=== PATIENT | female | born 1945 | race Caucasian/White ===

== ENCOUNTER → 2016-08-31 | Outpatient (CLI) | payer MEDICARE, OTHER ==
[~2016-08-31] MED LIST: ACYC400T PO; ASCO500C3 PO; BIOT10004 PO; CALC-134 PO; CEVI30CA2 PO; CHOL100040 PO; CYCL0.05 EACHEYE; ETAN50IN SUBCUT; ETOD200C27 PO; FER325T PO; FOLI1TAB6 PO; LEUC5TAB PO; LIS20T PO; MULTCAP45 PO; VITA100T3 PO
[2016-08-31 11:03] LABS: Hemoglobin 12.7 g/dL (12.2-16.2); Mean Corpuscular Hemoglobin 31.7 pg (28.0-32.0); Mean Corpuscular Hgb Conc. 34.4 g/dL (32.0-36.0); Mean Corpuscular Volume 92.3 fL (80.0-100.0); Mean Platelet Volume 6.9 fL (7.4-10.4); Platelet Count (auto) 304 10^3/uL (140-450); White Blood Cell 3.3 10^3/uL (4.4-10.8)
[2016-08-31 11:17] LABS: Albumin 3.3 g/dL (3.4-5.0); BUN/Creatinine Ratio 16.9; Bilirubin, Total 0.4 mg/dL (0.2-1.0); Calcium 8.7 mg/dL (8.5-10.1); Total Protein 8.3 g/dL (6.4-8.2)
[2016-08-31 11:27] LABS: Metamyelocytes % 0; Myelocytes % 0; Promyelocytes % 0; Reactive Lymphocytes 0
[2016-08-31 14:13] LABS: Platelet Estimate Adequate
== END | disposition home or self-care (01) ==
LOC: LAB 09:55
DX: M06.9 Rheumatoid arthritis, unspecified (principal); M25.50 Pain in unspecified joint; D64.9 Anemia, unspecified; I10 Essential (primary) hypertension
CPT/HCPCS: 36415; 80053; 85007; 85027; 85652; 86141

== ENCOUNTER → 2016-10-05 | Outpatient (CLI) | payer MEDICARE, OTHER ==
[2016-10-05 07:55] LABS: Cholesterol 167 mg/dL (< 200); HDL Cholesterol 54 mg/dL (40-59); LDL Cholesterol 118 mg/dL (< 100); Triglycerides 80 mg/dL (< 150)
== END | disposition home or self-care (01) ==
LOC: LAB 06:39
PROVIDERS: ATTEND Internal Medicine
DX: Z00.00 Encounter for general adult medical examination without abnormal findings (principal); I10 Essential (primary) hypertension
CPT/HCPCS: 36415; 80061; 82043; 82306; 84443

== ENCOUNTER → 2016-11-23 | Outpatient (CLI) | payer MEDICARE, OTHER | END | disposition home or self-care (01) | LOC: LAB 09:54 | PROVIDERS: ATTEND Internal Medicine | DX: Z01.812 Encounter for preprocedural laboratory examination (principal) | CPT/HCPCS: 36415; 82565; 84520 ==

== ENCOUNTER → 2016-12-15 | Outpatient (CLI) | payer MEDICARE, OTHER ==
[2016-12-15 11:00] LABS: Hematocrit 37.7 % (36.0-46.0)
== END | disposition home or self-care (01) ==
LOC: LAB 09:57
PROVIDERS: ATTEND Internal Medicine
DX: D64.9 Anemia, unspecified (principal)
CPT/HCPCS: 36415; 85014; 85018

== ENCOUNTER → 2017-03-08 | Outpatient (CLI) | payer MEDICARE, OTHER ==
[2017-03-08 09:11] LABS: Basophils # (auto) 0 uL; Basophils % (auto) 0.6 % (0.0-2.0); Eosinophils # (auto) 0.1 uL; Eosinophils % (auto) 2.4 % (0.0-7.0); Hematocrit 38.2 % (36.0-46.0); Hemoglobin 13.3 g/dL (12.2-16.2); Lymphocytes # (auto) 0.6 uL; Lymphocytes % (auto) 19.8 % (10.0-50.0); Mean Corpuscular Hemoglobin 33.9 pg (28.0-32.0); Mean Corpuscular Hgb Conc. 34.7 g/dL (32.0-36.0); Mean Corpuscular Volume 97.6 fL (80.0-100.0); Mean Platelet Volume 6.1 fL (6.9-10.8); Monocytes # (auto) 0.5 uL; Monocytes % (auto) 14.3 % (0.0-12.0); Neutrophils % (auto) 62.9 % (37.0-80.0); Platelet Count (auto) 228 10^3/uL (140-450); Red Cell Distribution Width 14.1 % (11.8-14.3); White Blood Cell 3.2 10^3/uL (4.4-10.8)
[2017-03-08 09:36] LABS: Albumin 3.6 g/dL (3.4-5.0); BUN/Creatinine Ratio 22.9; Bilirubin, Total 0.7 mg/dL (0.2-1.0); Calcium 8.7 mg/dL (8.5-10.1)
== END | disposition home or self-care (01) ==
LOC: LAB 08:54
DX: I10 Essential (primary) hypertension (principal); M06.9 Rheumatoid arthritis, unspecified; D64.9 Anemia, unspecified; M25.50 Pain in unspecified joint; Z79.899 Other long term (current) drug therapy
CPT/HCPCS: 36415; 80053; 85025; 85652; 86141

== ENCOUNTER → 2017-05-31 | Outpatient (CLI) | payer MEDICARE, OTHER ==
[2017-05-31 14:35] LABS: Basophils # (auto) 0 uL; Eosinophils # (auto) 0.2 uL; Eosinophils % (auto) 6.2 % (0.0-7.0); Hematocrit 38.8 % (36.0-46.0); Hemoglobin 13.1 g/dL (12.2-16.2); Lymphocytes # (auto) 0.9 uL; Lymphocytes % (auto) 31.4 % (10.0-50.0); Mean Corpuscular Hemoglobin 32.5 pg (28.0-32.0); Mean Corpuscular Hgb Conc. 33.8 g/dL (32.0-36.0); Mean Corpuscular Volume 96.3 fL (80.0-100.0); Mean Platelet Volume 6.3 fL (6.9-10.8); Monocytes # (auto) 0.4 uL; Monocytes % (auto) 14.3 % (0.0-12.0); Neutrophils # (auto) 1.4 uL; Neutrophils % (auto) 47.1 % (37.0-80.0); Nucleated Red Blood Cells % 0.1 %; Platelet Count (auto) 245 10^3/uL (140-450); Red Cell Distribution Width 12.6 % (11.8-14.3); White Blood Cell 2.9 10^3/uL (4.4-10.8)
[2017-05-31 15:01] LABS: Albumin 3.6 g/dL (3.4-5.0); BUN/Creatinine Ratio 23.8; Bilirubin, Total 0.4 mg/dL (0.2-1.0); Calcium 9.2 mg/dL (8.5-10.1); Potassium 3.8 mmol/L (3.5-5.1); Total Protein 8.3 g/dL (6.4-8.2)
== END | disposition home or self-care (01) ==
LOC: LAB 14:20
DX: I10 Essential (primary) hypertension (principal); M06.9 Rheumatoid arthritis, unspecified; D64.9 Anemia, unspecified
CPT/HCPCS: 36415; 80053; 85025; 85652; 86141

== ENCOUNTER → 2017-09-14 | Outpatient (CLI) | payer MEDICARE, OTHER ==
[2017-09-14 08:47] LABS: Hematocrit 37.1 % (36.0-46.0); Hemoglobin 12.5 g/dL (12.2-16.2); Mean Corpuscular Hemoglobin 31.6 pg (28.0-32.0); Mean Corpuscular Hgb Conc. 33.5 g/dL (32.0-36.0); Mean Corpuscular Volume 94.4 fL (80.0-100.0); Platelet Count (auto) 220 10^3/uL (140-450); Red Blood Cells 3.94 10^6/uL (4.0-5.20); Red Cell Distribution Width 12.9 % (11.8-14.3)
[2017-09-14 09:08] LABS: Band Neutrophils % (manual) 0; Basophils % (manual) 0 (0.0-2.0); Blast Cells 0; Metamyelocytes % 0; Myelocytes % 0; Promyelocytes % 0; Reactive Lymphocytes 0
[2017-09-14 09:16] LABS: Albumin 3.3 g/dL (3.4-5.0); BUN/Creatinine Ratio 17.7; Bilirubin, Total 0.6 mg/dL (0.2-1.0); CRP High Sensitivity 0.1 mg/dL (< 0.3); Calcium 8.9 mg/dL (8.5-10.1); Potassium 4.1 mmol/L (3.5-5.1); Total Protein 7.6 g/dL (6.4-8.2)
[2017-09-14 15:10] LABS: Eosinophils % (manual) 17 (0-7); Lymphocytes % (manual) 32 (10.0-50.0); Monocytes % (manual) 7 (0-12)
== END | disposition home or self-care (01) ==
LOC: LAB 08:25
PROVIDERS: ATTEND Internal Medicine Rheumatology
DX: M06.9 Rheumatoid arthritis, unspecified (principal); I12.9 Hypertensive chronic kidney disease with stage 1 through stage 4 chronic kidney disease, or unspecified chronic kidney disease; N18.2 Chronic kidney disease, stage 2 (mild); E78.00 Pure hypercholesterolemia, unspecified; Z79.899 Other long term (current) drug therapy
CPT/HCPCS: 36415; 80053; 85007; 85027; 85652; 86141

== ENCOUNTER → 2017-11-07 | Outpatient (CLI) | payer MEDICARE, OTHER ==
[2017-11-07 09:05] LABS: Hematocrit 37.9 % (36.0-46.0); Hemoglobin 12.8 g/dL (12.2-16.2); Mean Corpuscular Hemoglobin 31.6 pg (28.0-32.0); Mean Corpuscular Hgb Conc. 33.7 g/dL (32.0-36.0); Mean Corpuscular Volume 93.9 fL (80.0-100.0); Platelet Count (auto) 216 10^3/uL (140-450); Red Blood Cells 4.04 10^6/uL (4.0-5.20); Red Cell Distribution Width 13.1 % (11.8-14.3)
[2017-11-07 09:24] LABS: White Blood Cell 1.5 10^3/uL (4.4-10.8)
[2017-11-07 09:25] LABS: Basophils % (manual) 0 (0.0-2.0); Blast Cells 0; Metamyelocytes % 0; Myelocytes % 0; Promyelocytes % 0
[2017-11-07 09:43] LABS: Albumin 3.4 g/dL (3.4-5.0); BUN/Creatinine Ratio 17.3; Bilirubin, Total 0.5 mg/dL (0.2-1.0); CRP High Sensitivity 0.14 mg/dL (< 0.3); Calcium 9.2 mg/dL (8.5-10.1); Potassium 4.1 mmol/L (3.5-5.1); Total Protein 7.9 g/dL (6.4-8.2)
[2017-11-07 10:45] LABS: Band Neutrophils % (manual) 2; Eosinophils % (manual) 18 (0-7); Lymphocytes % (manual) 28 (10.0-50.0); Monocytes % (manual) 4 (0-12); Reactive Lymphocytes 3
== END | disposition home or self-care (01) ==
LOC: LAB 07:31
PROVIDERS: ATTEND Internal Medicine
DX: Z00.01 Encounter for general adult medical examination with abnormal findings (principal); Z12.11 Encounter for screening for malignant neoplasm of colon; M06.9 Rheumatoid arthritis, unspecified; I12.9 Hypertensive chronic kidney disease with stage 1 through stage 4 chronic kidney disease, or unspecified chronic kidney disease; N18.2 Chronic kidney disease, stage 2 (mild); E78.00 Pure hypercholesterolemia, unspecified; Z79.899 Other long term (current) drug therapy
CPT/HCPCS: 36415; 80053; 80061; 82270; 82306; 84443; 85007; 85027; 85652; 86141

== ENCOUNTER → 2019-01-04 | Outpatient (CLI) | payer MEDICARE, OTHER ==
[~2019-01-04] MED LIST changes: +ACYC-161 PO; -ACYC400T PO
[2019-01-04 07:40] LABS: Hematocrit 37.7 % (36.0-46.0); Hemoglobin 12.8 g/dL (12.2-16.2); Mean Corpuscular Hemoglobin 31.9 pg (28.0-32.0); Mean Corpuscular Hgb Conc. 33.9 g/dL (32.0-36.0); Platelet Count (auto) 232 10^3/uL (140-450); Red Blood Cells 4.01 10^6/uL (4.0-5.20); Red Cell Distribution Width 12.6 % (11.8-14.3)
[2019-01-04 07:48] LABS: Band Neutrophils % (manual) 0; Basophils % (manual) 0 (0.0-2.0); Blast Cells 0; Metamyelocytes % 0; Myelocytes % 0; Promyelocytes % 0; Reactive Lymphocytes 0
[2019-01-04 08:08] LABS: Eosinophils % (manual) 25 (0-7); Lymphocytes % (manual) 43 (10.0-50.0); Monocytes % (manual) 8 (0-12)
[2019-01-04 08:16] LABS: Albumin 3.4 g/dL (3.4-5.0); BUN/Creatinine Ratio 18.8; Calcium 9.3 mg/dL (8.5-10.1); Potassium 4.5 mmol/L (3.5-5.1)
[2019-01-04 08:21] LABS: Bilirubin, Total 0.7 mg/dL (0.2-1.0); Total Protein 8.1 g/dL (6.4-8.2)
[2019-01-04 09:09] LABS: White Blood Cell 1.7 10^3/uL (4.4-10.8)
== END | disposition home or self-care (01) ==
LOC: LAB 07:13
PROVIDERS: ATTEND Internal Medicine
DX: Z12.11 Encounter for screening for malignant neoplasm of colon (principal); I12.9 Hypertensive chronic kidney disease with stage 1 through stage 4 chronic kidney disease, or unspecified chronic kidney disease; N18.3 Chronic kidney disease, stage 3 (moderate)
CPT/HCPCS: 36415; 80053; 80061; 82306; 84443; 85007; 85027

== ENCOUNTER → 2019-01-08 | Outpatient (CLI) | payer MEDICARE, OTHER | END | disposition home or self-care (01) | LOC: LAB 11:02 | PROVIDERS: ATTEND Internal Medicine | DX: Z12.11 Encounter for screening for malignant neoplasm of colon (principal); I12.9 Hypertensive chronic kidney disease with stage 1 through stage 4 chronic kidney disease, or unspecified chronic kidney disease; N18.3 Chronic kidney disease, stage 3 (moderate) | CPT/HCPCS: 82274 ==

== ENCOUNTER → 2019-01-30 | Outpatient (CLI) | payer MEDICARE, OTHER | END | disposition home or self-care (01) | LOC: LAB 09:41 | PROVIDERS: ATTEND Internal Medicine | DX: D72.818 Other decreased white blood cell count (principal); M06.9 Rheumatoid arthritis, unspecified; D47.2 Monoclonal gammopathy | CPT/HCPCS: 36415; 85048 ==

== ENCOUNTER → 2019-01-31 | Outpatient (CLI) | payer MEDICARE, OTHER ==
[2019-01-31 09:17] LABS: Hematocrit 36.7 % (36.0-46.0); Hemoglobin 12.4 g/dL (12.2-16.2); Mean Corpuscular Hemoglobin 31.7 pg (28.0-32.0); Mean Corpuscular Hgb Conc. 33.7 g/dL (32.0-36.0); Mean Corpuscular Volume 93.8 fL (80.0-100.0); Platelet Count (auto) 266 10^3/uL (140-450); Red Blood Cells 3.91 10^6/uL (4.0-5.20); White Blood Cell 2.3 10^3/uL (4.4-10.8)
[2019-01-31 09:31] LABS: Basophils % (manual) 0 (0.0-2.0); Blast Cells 0; Metamyelocytes % 0; Myelocytes % 0; Promyelocytes % 0; Reactive Lymphocytes 0
[2019-01-31 09:40] LABS: % Iron Saturation 46.3 % (15-50); Albumin 3.4 g/dL (3.4-5.0); BUN/Creatinine Ratio 17.1; Calcium 8.9 mg/dL (8.5-10.1); Potassium 4.3 mmol/L (3.5-5.1)
[2019-01-31 09:42] LABS: Bilirubin, Total 0.6 mg/dL (0.2-1.0); Total Protein 7.4 g/dL (6.4-8.2)
[2019-01-31 09:44] LABS: Ferritin 240.6 ng/mL (10-322); Folate (Folic Acid) > 24.00 ng/mL (5.38-24)
[2019-01-31 12:16] LABS: Band Neutrophils % (manual) 3; Eosinophils % (manual) 13 (0-7); Lymphocytes % (manual) 35 (10.0-50.0); Monocytes % (manual) 5 (0-12)
[2019-02-01 08:09] LABS: Immunoglobulin G, Serum 2012 mg/dL (700-1600)
== END | disposition home or self-care (01) ==
LOC: LAB 08:31
PROVIDERS: ATTEND Internal Medicine
DX: D70.4 Cyclic neutropenia (principal); I10 Essential (primary) hypertension; R79.89 Other specified abnormal findings of blood chemistry
CPT/HCPCS: 36415; 80053; 82728; 82746; 82784; 83540; 83550; 83883; 84155; 84165; 85007; 85027

== ENCOUNTER → 2019-05-01 | Outpatient (CLI) | payer MEDICARE, OTHER ==
[2019-05-01 08:13] LABS: Basophils # (auto) 0 uL; Basophils % (auto) 0.3 % (0.0-2.0); Eosinophils # (auto) 1.1 uL; Hematocrit 35.5 % (36.0-46.0); Hemoglobin 12.4 g/dL (12.2-16.2); Lymphocytes # (auto) 0.6 uL; Lymphocytes % (auto) 21.3 % (10.0-50.0); Mean Corpuscular Hemoglobin 32.6 pg (28.0-32.0); Mean Corpuscular Volume 93.2 fL (80.0-100.0); Monocytes # (auto) 0.1 uL; Monocytes % (auto) 4.2 % (0.0-12.0); Neutrophils # (auto) 0.9 uL; Platelet Count (auto) 237 10^3/uL (140-450); Red Blood Cells 3.81 10^6/uL (4.0-5.20); Red Cell Distribution Width 13.3 % (11.8-14.3); White Blood Cell 2.6 10^3/uL (4.4-10.8)
[2019-05-01 08:15] LABS: Eosinophils % (auto) 41.2 % (0.0-7.0)
[2019-05-01 08:44] LABS: Albumin 3.3 g/dL (3.4-5.0); Calcium 8.7 mg/dL (8.5-10.1); Potassium 3.9 mmol/L (3.5-5.1)
[2019-05-01 08:48] LABS: BUN/Creatinine Ratio 15.6; Bilirubin, Total 0.4 mg/dL (0.2-1.0); Total Protein 7.5 g/dL (6.4-8.2)
== END | disposition home or self-care (01) ==
LOC: LAB 07:36
PROVIDERS: ATTEND Internal Medicine Hematology & Oncology
DX: D70.4 Cyclic neutropenia (principal)
CPT/HCPCS: 36415; 80053; 83615; 85025

== ENCOUNTER → 2019-06-12 | Outpatient (CLI) | payer MEDICARE, OTHER ==
[2019-06-12 15:10] LABS: Hemoglobin 11.7 g/dL (12.2-16.2); Mean Corpuscular Hemoglobin 32.3 pg (28.0-32.0); Mean Corpuscular Hgb Conc. 34.5 g/dL (32.0-36.0); Mean Corpuscular Volume 93.6 fL (80.0-100.0); Platelet Count (auto) 243 10^3/uL (140-450); Red Blood Cells 3.63 10^6/uL (4.0-5.20); White Blood Cell 2.7 10^3/uL (4.4-10.8)
[2019-06-12 15:18] LABS: Band Neutrophils % (manual) 0; Basophils % (manual) 0 (0.0-2.0); Blast Cells 0; Metamyelocytes % 0; Myelocytes % 0; Promyelocytes % 0; Reactive Lymphocytes 0
[2019-06-12 15:27] LABS: Albumin 3.3 g/dL (3.4-5.0); Calcium 8.9 mg/dL (8.5-10.1); Potassium 4.2 mmol/L (3.5-5.1)
[2019-06-12 15:29] LABS: BUN/Creatinine Ratio 24.7
[2019-06-12 15:31] LABS: Bilirubin, Total 0.3 mg/dL (0.2-1.0); Total Protein 7.6 g/dL (6.4-8.2)
[2019-06-12 15:41] LABS: Eosinophils % (manual) 52 (0-7); Lymphocytes % (manual) 30 (10.0-50.0); Monocytes % (manual) 8 (0-12)
[2019-07-03 10:59] LABS: Lymphocytes % (auto) 30.7 % (10.0-50.0); Monocytes % (auto) 7.9 % (0.0-12.0)
[2019-07-03 11:00] LABS: Basophils % (auto) 0.3 % (0.0-2.0)
[2019-07-03 11:03] LABS: Eosinophils % (auto) 45.5 % (0.0-7.0); Neutrophils % (auto) 15.6 % (37.0-80.0)
== END | disposition home or self-care (01) ==
LOC: LAB 14:53
PROVIDERS: ATTEND Internal Medicine Hematology & Oncology
DX: D70.4 Cyclic neutropenia (principal); Z87.891 Personal history of nicotine dependence; Z98.51 Tubal ligation status; Z90.49 Acquired absence of other specified parts of digestive tract
CPT/HCPCS: 36415; 38221; 80053; 81206; 81207; 85007; 85027; 88189; 88291; 88341

== ENCOUNTER → 2019-07-17 | Outpatient (CLI) | payer MEDICARE, OTHER ==
[2019-07-17 09:46] LABS: Hematocrit 33.9 % (36.0-46.0); Hemoglobin 11.7 g/dL (12.2-16.2); Mean Corpuscular Hemoglobin 32.2 pg (28.0-32.0); Mean Corpuscular Hgb Conc. 34.5 g/dL (32.0-36.0); Mean Corpuscular Volume 93.3 fL (80.0-100.0); Platelet Count (auto) 253 10^3/uL (140-450); Red Blood Cells 3.64 10^6/uL (4.0-5.20); Red Cell Distribution Width 13.3 % (11.8-14.3); White Blood Cell 2.7 10^3/uL (4.4-10.8)
[2019-07-17 10:03] LABS: Band Neutrophils % (manual) 0; Basophils % (manual) 0 (0.0-2.0); Blast Cells 0; Metamyelocytes % 0; Myelocytes % 0; Promyelocytes % 0; Reactive Lymphocytes 0
[2019-07-17 10:11] LABS: Potassium 4.5 mmol/L (3.5-5.1)
[2019-07-17 10:17] LABS: Albumin 3.2 g/dL (3.4-5.0); BUN/Creatinine Ratio 21.3; Bilirubin, Total 0.6 mg/dL (0.2-1.0); Calcium 8.9 mg/dL (8.5-10.1); Total Protein 7.6 g/dL (6.4-8.2)
[2019-07-17 10:46] LABS: Eosinophils % (manual) 26 (0-7); Lymphocytes % (manual) 24 (10.0-50.0); Monocytes % (manual) 9 (0-12)
== END | disposition home or self-care (01) ==
LOC: LAB 09:17
PROVIDERS: ATTEND Internal Medicine Hematology & Oncology
DX: D70.4 Cyclic neutropenia (principal)
CPT/HCPCS: 36415; 80053; 85007; 85027

== ENCOUNTER → 2021-01-29 | Outpatient (CLI) | payer MEDICARE ==
[~2021-01-29] MED LIST changes: -ETOD200C27 PO; +[UNRECOGNIZED DRUG - CODE] PO
== END | disposition home or self-care (01) ==
LOC: LAB 10:34
PROVIDERS: ATTEND Internal Medicine
DX: Z00.00 Encounter for general adult medical examination without abnormal findings (principal); Z12.11 Encounter for screening for malignant neoplasm of colon; E55.9 Vitamin D deficiency, unspecified; I10 Essential (primary) hypertension
CPT/HCPCS: 82274

== ENCOUNTER 2022-08-19 11:36 | Emergency (ER) | payer MEDICARE, OTHER ==
[~2022-08-19] VITALS: Ht 154.9 cm; Wt 69.6 kg
[2022-08-19] MEDS ORDERED: cefTRIAXone 1GM/50ML D5W 50 ML IV ONE (12:45)
[2022-08-19 13:02] VITALS: BP 164/66
[2022-08-20] MEDS ORDERED: CEPH-510 PO (10:34)
== END 2022-08-19 13:18 | disposition home or self-care (01) ==
LOC: ER 11:36
DX: S60.862A Insect bite (nonvenomous) of left wrist, initial encounter (principal); L03.124 Acute lymphangitis of left upper limb; I10 Essential (primary) hypertension; Z79.899 Other long term (current) drug therapy; W57.XXXA Bitten or stung by nonvenomous insect and other nonvenomous arthropods, initial encounter; Y93.89 Activity, other specified; Y92.89 Other specified places as the place of occurrence of the external cause; Y99.8 Other external cause status
CPT/HCPCS: 96374; 99283; J0696

== ENCOUNTER 2022-08-20 09:49 | Emergency (ER) | payer MEDICARE, OTHER ==
[~2022-08-20] VITALS: Ht 154.9 cm; Wt 68.2 kg
[2022-08-20 10:21] VITALS: BP 142/67
[2022-08-20] MEDS ORDERED: cefTRIAXone SOD 1,000 MG VL IM ONE (10:30)
[2022-08-20] MEDS ORDERED: CEPH-510 PO (10:34)
== END 2022-08-20 10:51 | disposition home or self-care (01) ==
LOC: ER 09:49
DX: S60.862D Insect bite (nonvenomous) of left wrist, subsequent encounter (principal); I10 Essential (primary) hypertension; Z90.49 Acquired absence of other specified parts of digestive tract; Z90.710 Acquired absence of both cervix and uterus; Z79.899 Other long term (current) drug therapy; W57.XXXD Bitten or stung by nonvenomous insect and other nonvenomous arthropods, subsequent encounter
CPT/HCPCS: 96372; 99283; J0696

== ENCOUNTER 2022-11-07 19:26 | Emergency (ER) | payer MEDICARE, OTHER ==
[~2022-11-07] VITALS: Ht 152.4 cm; Wt 68.0 kg
[~2022-11-07 19:26] MED LIST changes: -ACYC-161 PO; +ACYC400T16 PO; +CEPH-510 PO; +FOLI-119 PO; -FOLI1TAB6 PO
[2022-11-07] MEDS ORDERED: FLUORESCEIN SOD OPTH TEST STRIP LEFTEYE ONE (20:30)
[2022-11-07] MEDS ORDERED: TETRACAINE HCL 0.5% OPTH(EYE) SOLN 4ML LEFTEYE ONE (20:30)
[2022-11-07 21:18] VITALS: BP 160/75
== END 2022-11-07 21:13 | disposition home or self-care (01) ==
LOC: ER 19:28
DX: M35.01 Sjogren syndrome with keratoconjunctivitis (principal); I10 Essential (primary) hypertension; Z90.49 Acquired absence of other specified parts of digestive tract; Z90.710 Acquired absence of both cervix and uterus; Z88.6 Allergy status to analgesic agent

== ENCOUNTER → 2023-06-23 | Outpatient (CLI) | payer MEDICARE, OTHER ==
[2023-06-23 08:10] LABS: Hematocrit 28.9 % (36.0-46.0); Hemoglobin 9.3 g/dL (12.2-16.2); Mean Corpuscular Hemoglobin 26.7 pg (28.0-32.0); Mean Corpuscular Hgb Conc. 32.1 g/dL (32.0-36.0)
[2023-06-23 08:12] LABS: Mean Corpuscular Volume 83.3 fL (80.0-100.0); Red Blood Cells 3.47 10^6/uL (4.0-5.20); Red Cell Distribution Width 19.7 % (11.8-14.3)
[2023-06-23 08:44] LABS: White Blood Cell 1.2 10^3/uL (4.4-10.8)
[2023-06-23 08:45] LABS: Band Neutrophils % (manual) 0; Basophils % (manual) 0 (0.0-2.0); Blast Cells 0; Metamyelocytes % 0; Myelocytes % 0; Promyelocytes % 0; Reactive Lymphocytes 0
[2023-06-23 08:52] LABS: Alanine Aminotransferase 11 U/L (7-40); Albumin 3.9 g/dL (3.2-4.8); Alkaline Phosphatase 112 U/L (46-116); Anion Gap 6 (5-15); Aspartate Aminotransferase 23 U/L (13-40); BUN/Creatinine Ratio 17.7 (10.0-20.0); Blood Urea Nitrogen 17 mg/dL (9-23); Calcium 9.6 mg/dL (8.5-10.1); Carbon Dioxide 24 mmol/L (20-30); Chloride 103 mmol/L (98-107); Cholesterol 135 mg/dL (< 200); Glucose 92 mg/dL (74-106); HDL Cholesterol 38 mg/dL (40-59); LDL Cholesterol 85 mg/dL (< 100); Sodium 133 mmol/L (136-145); Triglycerides 107 mg/dL (< 150)
[2023-06-23 08:53] LABS: Bilirubin, Total 0.3 mg/dL (0.2-1.0); Total Protein 7.6 g/dL (5.7-8.2)
[2023-06-23 13:39] LABS: Eosinophils % (manual) 7 (0-7); Lymphocytes % (manual) 26 (10.0-50.0); Monocytes % (manual) 35 (0-12); Platelet Estimate Adequate
== END | disposition home or self-care (01) ==
LOC: LAB 07:56
PROVIDERS: ATTEND Nurse Practitioner Family
DX: I10 Essential (primary) hypertension (principal); E55.9 Vitamin D deficiency, unspecified; D72.819 Decreased white blood cell count, unspecified
CPT/HCPCS: 36415; 80053; 80061; 82306; 84439; 84443; 85007; 85027

== ENCOUNTER → 2023-07-27 | Outpatient (CLI) | payer MEDICARE, OTHER ==
[2023-07-27 09:44] LABS: Hemoglobin 9.5 g/dL (12.2-16.2); Mean Corpuscular Hgb Conc. 32.8 g/dL (32.0-36.0)
[2023-07-27 09:46] LABS: Mean Corpuscular Hemoglobin 27.8 pg (28.0-32.0); Mean Corpuscular Volume 84.9 fL (80.0-100.0); Red Blood Cells 3.42 10^6/uL (4.0-5.20); Red Cell Distribution Width 19.3 % (11.8-14.3)
[2023-07-27 10:24] LABS: % Iron Saturation 6.4 % (15-50)
[2023-07-27 11:14] LABS: White Blood Cell 1.1 10^3/uL (4.4-10.8)
[2023-07-27 11:17] LABS: Band Neutrophils % (manual) 0; Basophils % (manual) 0 (0.0-2.0); Blast Cells 0; Eosinophils % (manual) 0 (0-7); Metamyelocytes % 0; Myelocytes % 0; Promyelocytes % 0; Reactive Lymphocytes 0
[2023-07-27 14:12] LABS: Lymphocytes % (manual) 43 (10.0-50.0); Monocytes % (manual) 34 (0-12); Platelet Estimate Adequate
[2023-07-28 08:06] LABS: Immunoglobulin A 364 mg/dL (64-422); Immunoglobulin G, Serum 2570 mg/dL (586-1602); Immunoglobulin M 82 mg/dL (26-217)
== END | disposition home or self-care (01) ==
LOC: LAB 09:13
DX: E87.1 Hypo-osmolality and hyponatremia (principal); D72.819 Decreased white blood cell count, unspecified
CPT/HCPCS: 36415; 82728; 82784; 83540; 83550; 85007; 85025; 85027

== ENCOUNTER → 2023-08-15 | Outpatient (CLI) | payer MEDICARE, OTHER ==
[2023-08-15 11:29] LABS: Hematocrit 28.9 % (36.0-46.0); Hemoglobin 9.3 g/dL (12.2-16.2); Mean Corpuscular Hemoglobin 27.9 pg (28.0-32.0); Mean Corpuscular Hgb Conc. 32.3 g/dL (32.0-36.0); Mean Corpuscular Volume 86.4 fL (80.0-100.0); Red Blood Cells 3.34 10^6/uL (4.0-5.20); Red Cell Distribution Width 18.5 % (11.8-14.3)
[2023-08-15 11:48] LABS: % Iron Saturation 7.8 % (15-50); Alanine Aminotransferase 12 U/L (7-40); Alkaline Phosphatase 111 U/L (46-116); Anion Gap 4 (5-15); Calcium 9.9 mg/dL (8.5-10.1); Carbon Dioxide 23 mmol/L (20-30); Chloride 107 mmol/L (98-107); Glucose 96 mg/dL (74-106); Potassium 4.6 mmol/L (3.5-5.1); Sodium 134 mmol/L (136-145)
[2023-08-15 11:49] LABS: BUN/Creatinine Ratio 25.3 (10.0-20.0); Blood Urea Nitrogen 24 mg/dL (9-23)
[2023-08-15 11:50] LABS: Albumin 3.8 g/dL (3.2-4.8); Aspartate Aminotransferase 23 U/L (13-40)
[2023-08-15 11:51] LABS: Bilirubin, Total 0.2 mg/dL (0.2-1.0); Ferritin 48.2 ng/mL (10-291); Total Protein 7.3 g/dL (5.7-8.2)
[2023-08-15 12:18] LABS: White Blood Cell 1.3 10^3/uL (4.4-10.8)
[2023-08-15 12:20] LABS: Band Neutrophils % (manual) 0; Basophils % (manual) 0 (0.0-2.0); Blast Cells 0; Metamyelocytes % 0; Myelocytes % 0; Promyelocytes % 0; Reactive Lymphocytes 0
[2023-08-15 13:22] LABS: Eosinophils % (manual) 4 (0-7); Lymphocytes % (manual) 56 (10.0-50.0); Monocytes % (manual) 19 (0-12); Platelet Estimate Adequate
== END | disposition home or self-care (01) ==
LOC: LAB 10:57
DX: D72.819 Decreased white blood cell count, unspecified (principal); E87.1 Hypo-osmolality and hyponatremia; Z88.8 Allergy status to other drugs, medicaments and biological substances
CPT/HCPCS: 36415; 80053; 82607; 82728; 83540; 83550; 85007; 85027

== ENCOUNTER → 2023-09-20 | Outpatient (CLI) | payer MEDICARE, OTHER ==
[~2023-09-20] MED LIST changes: +LIDOCAINE 2%HCL (LOCAL ANESTH.) INJ 10ml MDV ONE; +MIDAZOLAM HCL 2MG/2ML 2ml VIAL (1mg/ml) IV ONE; +MIDAZOLAM HCL 2MG/2ML 2ml VIAL (1mg/ml) ONE; +fentaNYL CITRATE 100 MCG/2 ML VL IV ONE; +fentaNYL CITRATE 100 MCG/2 ML VL ONE
== END | disposition home or self-care (01) ==
LOC: XYW 08:21
DX: D72.819 Decreased white blood cell count, unspecified (principal); Z79.899 Other long term (current) drug therapy; Z87.01 Personal history of pneumonia (recurrent); Z98.51 Tubal ligation status; Z90.710 Acquired absence of both cervix and uterus; Z98.890 Other specified postprocedural states; Z82.49 Family history of ischemic heart disease and other diseases of the circulatory system; Z82.5 Family history of asthma and other chronic lower respiratory diseases; Z84.89 Family history of other specified conditions
CPT/HCPCS: 38222; 77012; J2001; J2250; J3010; 10005; 72192

== ENCOUNTER → 2023-12-16 | Outpatient (CLI) | payer MEDICARE, OTHER ==
[~2023-12-16] MED LIST changes: -LIDOCAINE 2%HCL (LOCAL ANESTH.) INJ 10ml MDV ONE; -MIDAZOLAM HCL 2MG/2ML 2ml VIAL (1mg/ml) IV ONE; -MIDAZOLAM HCL 2MG/2ML 2ml VIAL (1mg/ml) ONE; -fentaNYL CITRATE 100 MCG/2 ML VL IV ONE; -fentaNYL CITRATE 100 MCG/2 ML VL ONE
[2023-12-16 09:23] LABS: Hemoglobin 8.5 g/dL (12.2-16.2)
[2023-12-16 09:25] LABS: Hematocrit 25.5 % (36.0-46.0); Mean Corpuscular Hemoglobin 29.7 pg (28.0-32.0); Mean Corpuscular Hgb Conc. 33.4 g/dL (32.0-36.0); Mean Corpuscular Volume 88.8 fL (80.0-100.0); Red Blood Cells 2.87 10^6/uL (4.0-5.20); Red Cell Distribution Width 17.1 % (11.8-14.3)
[2023-12-16 09:30] LABS: White Blood Cell 1.2 10^3/uL (4.4-10.8)
[2023-12-16 09:32] LABS: Blast Cells 0; Metamyelocytes % 0; Myelocytes % 0; Promyelocytes % 0; Reactive Lymphocytes 0
[2023-12-16 10:07] LABS: Albumin 3.2 g/dL (3.2-4.8); Alkaline Phosphatase 104 U/L (46-116); Anion Gap 6 (5-15); Aspartate Aminotransferase 14 U/L (13-40); BUN/Creatinine Ratio 19.8 (10.0-20.0); Blood Urea Nitrogen 19 mg/dL (9-23); Calcium 8.7 mg/dL (8.5-10.1); Carbon Dioxide 21 mmol/L (20-30); Chloride 106 mmol/L (98-107); Glucose 99 mg/dL (74-106); Potassium 4.1 mmol/L (3.5-5.1); Sodium 133 mmol/L (136-145)
[2023-12-16 10:08] LABS: Alanine Aminotransferase < 9 U/L (7-40); Bilirubin, Total 0.2 mg/dL (0.2-1.0); Total Protein 6.2 g/dL (5.7-8.2)
[2023-12-16 10:18] LABS: Band Neutrophils % (manual) 4; Lymphocytes % (manual) 45 (10.0-50.0)
[2023-12-16 10:19] LABS: Basophils % (manual) 1 (0.0-2.0); Eosinophils % (manual) 5 (0-7); Monocytes % (manual) 26 (0-12)
[2023-12-16 10:20] LABS: Anisocytosis Slight; Platelet Estimate Adequate
[2023-12-16 10:42] LABS: % Iron Saturation 11.2 % (15-50)
== END | disposition home or self-care (01) ==
LOC: LAB 08:58
PROVIDERS: ATTEND Student in an Organized Health Care Education/Training Program
DX: D50.0 Iron deficiency anemia secondary to blood loss (chronic) (principal); E87.1 Hypo-osmolality and hyponatremia; D64.9 Anemia, unspecified; D72.819 Decreased white blood cell count, unspecified; Z91.013 Allergy to seafood
CPT/HCPCS: 36415; 80053; 82728; 83540; 83550; 83615; 85007; 85027

== ENCOUNTER → 2024-01-02 | Outpatient (CLI) | payer MEDICARE, OTHER ==
[2024-01-02 07:56] LABS: Hemoglobin 9.3 g/dL (12.2-16.2)
[2024-01-02 07:59] LABS: Hematocrit 28.1 % (36.0-46.0); Mean Corpuscular Hemoglobin 29.5 pg (28.0-32.0); Mean Corpuscular Hgb Conc. 33.1 g/dL (32.0-36.0); Mean Corpuscular Volume 89.1 fL (80.0-100.0); Red Blood Cells 3.16 10^6/uL (4.0-5.20); Red Cell Distribution Width 16.8 % (11.8-14.3)
[2024-01-02 08:22] LABS: Albumin 3.5 g/dL (3.2-4.8); Alkaline Phosphatase 97 U/L (46-116); Anion Gap 5 (5-15); Aspartate Aminotransferase 18 U/L (13-40); Bilirubin, Total 0.3 mg/dL (0.2-1.0); Blood Urea Nitrogen 15 mg/dL (9-23); Calcium 9.4 mg/dL (8.7-10.4); Carbon Dioxide 24 mmol/L (20-30); Chloride 106 mmol/L (98-107); Cholesterol 131 mg/dL (< 200); Glucose 93 mg/dL (74-106); HDL Cholesterol 41 mg/dL (40-59); LDL Cholesterol 80 mg/dL (< 100); Potassium 4.6 mmol/L (3.5-5.1); Sodium 135 mmol/L (136-145); Total Protein 6.9 g/dL (5.7-8.2); Triglycerides 113 mg/dL (< 150); White Blood Cell 1.1 10^3/uL (4.4-10.8)
[2024-01-02 08:23] LABS: Blast Cells 0; Metamyelocytes % 0; Myelocytes % 0; Promyelocytes % 0; Reactive Lymphocytes 0
[2024-01-02 08:36] LABS: Alanine Aminotransferase < 9 U/L (7-40)
[2024-01-02 08:52] LABS: Anisocytosis Slight; Band Neutrophils % (manual) 1; Basophils % (manual) 1 (0.0-2.0); Eosinophils % (manual) 4 (0-7); Lymphocytes % (manual) 38 (10.0-50.0); Monocytes % (manual) 32 (0-12)
[2024-01-02 08:53] LABS: Platelet Estimate Adequate; Tear Drop Cells FEW
== END | disposition home or self-care (01) ==
LOC: LAB 07:35
PROVIDERS: ATTEND Nurse Practitioner Family
DX: E78.5 Hyperlipidemia, unspecified (principal); Z00.00 Encounter for general adult medical examination without abnormal findings
CPT/HCPCS: 36415; 80053; 80061; 84439; 84443; 85007; 85027

== ENCOUNTER → 2024-05-11 | Outpatient (CLI) | payer MEDICARE, OTHER ==
[~2024-05-11] MED LIST changes: +ETOD200C2 PO; -[UNRECOGNIZED DRUG - CODE] PO
[2024-05-11 08:52] LABS: Hematocrit 31.4 % (36.0-46.0); Hemoglobin 10.6 g/dL (12.2-16.2); Mean Corpuscular Hemoglobin 29.3 pg (28.0-32.0); Mean Corpuscular Hgb Conc. 33.7 g/dL (32.0-36.0); Platelet Count (auto) 255 10^3/uL (140-450); Red Blood Cells 3.61 10^6/uL (4.0-5.20); Red Cell Distribution Width 15.9 % (11.8-14.3)
[2024-05-11 10:04] LABS: Alanine Aminotransferase 11 U/L (7-40); Albumin 3.6 g/dL (3.2-4.8); Anion Gap 6 (5-15); Aspartate Aminotransferase 17 U/L (13-40); BUN/Creatinine Ratio 24.5 (10.0-20.0); Blood Urea Nitrogen 23 mg/dL (9-23); Calcium 9.7 mg/dL (8.7-10.4); Carbon Dioxide 25 mmol/L (20-31); Chloride 105 mmol/L (98-107); Glucose 95 mg/dL (74-106); Potassium 4.7 mmol/L (3.5-5.1); Total Protein 7.3 g/dL (5.7-8.2)
[2024-05-11 10:21] LABS: Alkaline Phosphatase 130 U/L (46-116); Bilirubin, Total 0.3 mg/dL (0.2-1.0); Sodium 136 mmol/L (136-145)
[2024-05-11 11:07] LABS: White Blood Cell 1.2 10^3/uL (4.4-10.8)
[2024-05-11 11:08] LABS: Basophils % (manual) 0 (0.0-2.0); Blast Cells 0; Metamyelocytes % 0; Myelocytes % 0; Promyelocytes % 0; Reactive Lymphocytes 0
[2024-05-11 11:25] LABS: Band Neutrophils % (manual) 5; Eosinophils % (manual) 3 (0-7); Large Platelets FEW; Lymphocytes % (manual) 38 (10.0-50.0); Monocytes % (manual) 26 (0-12); Platelet Estimate Adequate
== END | disposition home or self-care (01) ==
LOC: LAB 08:32
PROVIDERS: ATTEND Student in an Organized Health Care Education/Training Program
DX: D72.819 Decreased white blood cell count, unspecified (principal); E87.1 Hypo-osmolality and hyponatremia; D50.0 Iron deficiency anemia secondary to blood loss (chronic)
CPT/HCPCS: 36415; 80053; 83615; 85007; 85027

== ENCOUNTER 2024-06-19 12:36 | Inpatient (IN) | payer MEDICARE, OTHER ==
[~2024-06-19] VITALS: Ht 167.6 cm; Wt 69.8 kg
--- NOTE | 2024-06-19 13:07 | ED.PDOC ---
GI ASSESSMENT HPI Comments 79 year old female COLIN presents to the ED with chief complaint of abdominal distention. Patient reports that she has been experiencing abdominal distention with associated 5/10 abdominal discomfort since yesterday with constipation for the past 2 days. Patient relays that she has not been passing gas. Patient denies any N/V/D, dizziness, fever, chills, dysuria, or rectal bleeding. Chief Complaint: Abdominal Pain Time Seen by MD: 13:02 Primary Care Provider: CLAUDE Reviewed Notes: Nurses Notes, Belly Packer Notes, Medications, Allergies Allergies: Coded Allergies: NO KNOWN ALLERGIES (Unverified , 03/31/10) Home Meds Active Scripts Cephalexin ( Keflex 500) 500 Mg Cap, 1 CAP PO TID, #30 CAP Prov:SREE ROBLES 08/20/22 Acyclovir (ZOVIRAX TABLET) 400 Mg Tb, 400 MG PO 5XD, #50 Prov:MARCIA LEIVA MD 10/03/15 Reported Medications Ascorbic Acid (Vitamin C) 500 Mg Chw, 500 MG PO HS, CHW 10/01/15 Alpha Tocopheryl Acid Succinat (VITAMIN E) 100 Unit Tab, 100 UNIT PO HS, TAB 10/01/15 Calcium Citrate Tetrahydrate (Calcium Citrate) Citrate Pow, 1 TAB PO HS, POW 10/01/15 Biotin (Vitamin H) (Biotin) 1,000 Mcg Tab, 1000 MCG PO DAILY, TAB 10/01/15 Multiple Vitamin (Multivitamins) Cap, 1 CAP PO DAILY, #30 CAP 3 Refills 10/01/15 Ferrous Sulfate (Ferrous Sulfate) 325 Mg Tab, 325 MG PO DAILY, TAB 10/01/15 Cholecalciferol (VITAMIN D-3) 1,000 Unit Tab, 1000 UNIT PO BID, TAB 10/01/15 Cyclosporine (Ophth) (Restasis) 0.05 % Emu, 1 DROP EACHEYE BID, #60 VIAL 3 Refills 10/01/15 Leucovorin Calcium (Leucovorin Calcium) 5 Mg Tab, 5 MG PO QWEEKLY, TAB 10/01/15 Etanercept (ENBREL) 50 Mg/Ml Inj, 50 MG SUBCUT QWEEKLY, #12 SYR 10/01/15 Lisinopril (ZESTRIL TABLET) 20 Mg Tb, 20 MG PO BID 10/01/15 Folic Acid (Folic Acid) 1 Mg Tab, 1000 MCG PO HS 03/31/10 Cevimeline Hydrochloride Hemih (Evoxac) 30 Mg Cap, 30 MG PO BID 03/31/10 Etodolac (Etodolac) 200 Mg Cap, 200 MG PO BID 03/31/10 Information Source: Patient, Emergency Med Personnel Mode of Arrival: EMS Timing: Days Duration: Since onset Prehospital treatment: None Quality: Aching Vomitus: None Stool: Impaction Severity: Moderate Recent: None Recent Hx of: None Pain Location: Diffuse Modifying Factors: Nothing Associated sign and symptoms: Constipation, Abdominal Pain Past Medical History PAST MEDICAL HISTORY: Arthritis, HTN Surgical History: Cholecystectomy, Hysterectomy 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 History Family History Family History: Reviewed,noncontributory to illness, Unknown Social History Smoker: Non-Smoker Alcohol: Denies ETOH Use Drugs: Denies Drug Use Lives In: Home Constitutional: denies: chills, diaphoresis, fatigue, fever, malaise, sweats, weakness, others EENTM: denies: blurred vision, double vision, ear bleeding, ear discharge, ear drainage, ear pain, ear ringing, eye pain, eye redness, hearing loss, mouth pain, mouth swelling, nasal discharge, nose bleeding, nose congestion, nose pain, photophobia, tearing, throat pain, throat swelling, voice changes, others Respiratory: denies: cough, hemoptysis, orthopnea, SOB at rest, shortness of breath, SOB with excertion, stridor, wheezing, others Cardiovascular: denies: chest pain, dizzy spells, diaphoresis, Dyspnea on exertion, edema, irregular heart beat, left arm pain, lightheadedness, palpitations, PND, syncope, others Gastrointestinal: reports: abdomen distended, abdominal pain, constipated; denies: blood streaked bowels, diarrhea, dysphagia, difficulty swallowing, hematemesis, melena, nausea, poor appetite, poor fluid intake, rectal bleeding, rectal pain, vomiting, others Genitourinary: denies: abnormal vagina bleeding, burning, dyspareunia, dysuria, flank pain, frequency, hematuria, incontinence, pain, , vagina discharge, urgency, others Neurological: denies: dizziness, fainting, headache, left sided numbness, left sided weakness, numbness, paresthesia, pre-existing deficit, right sided numbness, right sided weakness, seizure, speech problems, tingling, tremors, weakness, others Musculoskeletal: denies: back pain, gout, joint pain, joint swelling, muscle pain, muscle stiffness, neck pain, others Integumetry: denies: bruises, change in color, change in hair/nails, dryness, laceration, lesions, lumps, rash, wounds, others Allergic/Immunocompromised: denies: Difficulty Healing, Frequent Infections, Hives, Itching, others Hematologic/Lymphatic: denies: anemia, blood clots, easy bleeding, easy bruising, swollen glands, others Endocrine: denies: excessive hunger, excessive sweating, excessive thirst, excessive urination, flushing, intolerance to cold, intolerance to heat, unexplained weight gain, unexplained weight loss, others Psychiatric: denies: anxiety, bipolar disorder, depression, hopeless, panic disorder, schizophrenia, sleepless, suicidal, others All Other Systems: Reviewed and Negative Physical Exam General Appearance: Moderate Distress, Normal HEENT: Normal ENT Inspection, PERRL/EOMI Neck: Full Range of Motion, Non-Tender, Normal, Normal Inspection Respiratory: Chest Non-Tender, Lungs Clear, No Accessory Muscle Use, No Respiratory Distress, Normal Breath Sounds Cardiovascular: No Edema, No JVD, No Murmur, No Gallop, Normal Peripheral Pulses, Regular Rate/Rhythm Breast Exam: Deferred Gastrointestinal: No Organomegaly, Non Tender, No Pulsatile Mass, Normal Bowel Sounds, Soft Genitalia: Deferred Pelvic: Deferred Rectal: Deferred Extremities: No calf tenderness, Normal capillary refill, Normal inspection, Normal range of motion, Non-tender, No pedal edema Musculoskeletal : Apperance: Normal Neurologic: Alert, core loader II-XII nml as Tested, No Motor Deficits, Normal Affect, Normal Mood, No Sensory Deficits Cerebellar Function: NOT DONE Reflexes: NOT DONE Skin: Dry, Normal Color, Warm Peripheral Pulses: 3+ Radial (R), 3+ Radial (L) Lymphatic: No Adenopathy Was a procedure done? Was a procedure done?: No GI differential Dx Differential Diagnosis: Constipation, Diverticular disease, Esophagitis, Gastritis/PUD, Gastroenteritis X-Ray, Labs, Meds, VS Vital Signs Date Time Temp Pulse Resp B/P (MAP) Pulse Ox O2 Delivery O2 Flow Rate FiO2 06/19/24 12:42 99.7 101 20 156/71 (99) 96 Lab Test 06/19/24 14:12 06/19/24 13:47 Range/Units Urine Color Pending Urine Clarity Pending Urine pH Pending Urine Specific [place] Pending Urine Protein Pending Urine Ketones Pending Urine Blood Pending Urine Nitrite Pending Urine Bilirubin Pending Urine Urobilinogen Pending Urine Leukocyte Esterase Pending Urine RBC Pending Urine WBC Pending Urine Squamous Epithelial Cells Pending Urine Bacteria Pending Urine Glucose Pending White Blood Count 2.5 L 4.4-10.8 10^3/uL Red Blood Count 3.12 L 4.0-5.20 10^6/uL Hemoglobin 9.0 L 12.2-16.2 g/dL Hematocrit 26.8 L 36.0-46.0 % Mean Corpuscular Volume 86.1 80.0-100.0 fL Mean Corpuscular Hemoglobin 29.0 28.0-32.0 pg Mean Corpuscular Hemoglobin Concent 33.6 32.0-36.0 g/dL Red Cell Distribution Width 17.1 H 11.8-14.3 % Platelet Count 303 140-450 10^3/uL Mean Platelet Volume 6.4 L 6.9-10.8 fL Neutrophils (%) (Auto) 81.8 H 37.0-80.0 % Lymphocytes (%) (Auto) 5.7 L 10.0-50.0 % Monocytes (%) (Auto) 11.7 0.0-12.0 % Eosinophils (%) (Auto) 0.5 0.0-7.0 % Basophils (%) (Auto) 0.3 0.0-2.0 % Neutrophils # (Auto) 2.1 1.6-8.6 10 ^3/uL Lymphocytes # (Auto) 0.1 L 0.4-5.4 10 ^3/uL Monocytes # (Auto) 0.3 0-1.3 10 ^3/uL Eosinophils # (Auto) 0 0-0.8 10 ^3/uL Basophils # (Auto) 0 0-0.2 10 ^3/uL Nucleated Red Blood Cells 0.1 % Sodium Level 129 L 136-145 mmol/L Potassium Level 4.7 3.5-5.1 mmol/L Chloride Level 100 98-107 mmol/L Carbon Dioxide Level 21 20-31 mmol/L Anion Gap 8 5-15 Blood Urea Nitrogen 22 9-23 mg/dL Creatinine 0.93 0.550-1.02 mg/dL Glomerular Filtration Rate Calc 63 >90 mL/min BUN/Creatinine Ratio 23.7 H 10.0-20.0 Serum Glucose 121 H 74-106 mg/dL Calcium Level 9.0 8.7-10.4 mg/dL Troponin I High Sensitivity 5 </=34 ng/L CT Abd/Pel: Findings: Evaluation of solid organs is limited due to lack of intravenous contrast use. Lung Bases: No acute or significant lung base finding. Normal heart size. No pleural or pericardial effusion. Liver: The liver is normal in size. No focal lesions. Gallbladder and biliary Tree: Gallbladder is surgically absent. Spleen: Unremarkable Pancreas: The pancreas is grossly normal in appearance. Adrenal Glands: Unremarkable Kidneys: Left renal cysts. No hydronephrosis or nephrolithiasis. Bladder: Grossly unremarkable for degree of distention. Bowel: The stomach is grossly normal in appearance. Small bowel and colon are normal in caliber and distribution. The appendix is not visualized; however, no secondary findings of acute appendicitis identified. Ascites: Absent Lymphadenopathy: No mesenteric, retroperitoneal or periportal lymphadenopathy. Abdominal wall and Mesentery: Unremarkable. Vasculature: Calcified atherosclerotic disease. Pelvic Organs: Uterus is surgically absent. Multiloculated cystic mass in the right adnexa measuring up to 64 mm with some calcification. Musculoskeletal: Rotoscoliosis with associated multilevel degenerative disease. Degenerative changes in the hips. IMPRESSION: 1. Multiloculated cystic mass in the right adnexa measuring up to 64 mm concerning for ovarian neoplasm. Recommend further evaluation with pelvic ultrasound and/or MRI of the pelvis with contrast. Patient alert. Complaining of abdominal distention. Vitals stable. Answering all questions. CT scan of the abdomen reviewed does show concerning for ovarian mass. Cardiac marker within normal limits. No sign of any obstruction. Reviewed her previous visit. Explained to the patient. Continue cardiac monitoring. CA 125. Time of 1ST Reevaluation: 14:02 Reevaluation 1ST: Unchanged Patient Education/Counseling: Diagnosis, Treatment Family Education/Counseling: No Family Present Additional Information I reviewed the following notes from patient's past medical encounters: 11/07/22 for Sjogren's syndrome The following tests were ordered, and results were reviewed by me: BMP, UA, CBC, Troponin, EKG, CT Abd/Pel Additional Information was gathered from interviewing the following independent historians: EMS I reviewed and agreed with the following test results read by other providers: CT Abd/Pel I discussed treatment and results with medical personnel. Departure 1 Departure Time of Disposition: 15:33 Impression: Primary Impression: Acute abdominal pain Additional Impression: Ovarian mass Disposition: ADMITTED INPATIENT Admit to: Med Surg Condition: Guarded Critical Care Note Critical Care Time?: No Stability Stability form required: No Heart Score Heart Score: Heart Score Response (Comments) Value History N/A 0 EKG N/A 0 Age N/A 0 Risk Factors N/A 0 Troponin N/A 0 Total 0 I personally scribed for ONUR MORALES MD ([email or web address]) on 06/19/24 at 13:07. Electronically submitted by Tyson Dee ([email or web address]). I personally scribed for ONUR MORALES MD ([email or web address]) on 06/19/24 at 14:40. Electronically submitted by Tyson Dee ([email or web address]). ONUR MORALES MD Jun 19, 2024 13:07
--- NOTE | 2024-06-19 13:43 | DVH ---
Exam: CT CT AB PEL WO CON-NO ORAL OR IV History: distended Comparison Study: None Technique: Multidetector spiral CT of the abdomen and pelvis was performed from lung bases to pubic symphysis. Imaging was performed without IV contrast. Axial, coronal and sagittal multiplanar reform ats were obtained from the axial data set by the technologist. Radiation dose : Abdomen/Pelvis: CTDIvol 9 mGy, DLP 493 mGy*cm. Findings: Evaluation of solid organs is limited due to lack of intravenous contrast use. Lung Bases: No acute or significant lung base finding. Normal heart size. No pleural or pericardial effusion. Liver: The liver is normal in size. No focal lesions. Gallbladder and biliary Tree: Gallbladder is surgically absent. Spleen: Unremarkable Pancreas: The pancreas is grossly normal in appearance. Adrenal Glands: Unremarkable Kidneys: Left renal cysts. No hydronephrosis or nephrolithiasis. Bladder: Grossly unremarkable for degree of distention. Bowel: The stomach is grossly normal in appearance. Small bowel and colon are normal in caliber and d istribution. The appendix is not visualized; however, no secondary findings of acute appendicitis id entified. Ascites: Absent Lymphadenopathy: No mesenteric, retroperitoneal or periportal lymphadenopathy. Abdominal wall and Mesentery: Unremarkable. Vasculature: Calcified atherosclerotic disease. Pelvic Organs: Uterus is surgically absent. Multiloculated cystic mass in the right adnexa measuring up to 64 mm with some calcification. Musculoskeletal: Rotoscoliosis with associated multilevel degenerative disease. Degenerative changes in the hips. IMPRESSION: 1. Multiloculated cystic mass in the right adnexa measuring up to 64 mm concerning for ovarian neopla sm. Recommend further evaluation with pelvic ultrasound and/or MRI of the pelvis with contrast. Radiation optimization: All CT scans at this facility use at least one of these dose optimization rosalind hniques: Automated exposure control mA and/or kV adjustment per patient size (includes targeted exams where dose is matched to clinical indication) or iterative reconstruction. HS:Y
[2024-06-19 14:12] LABS: Basophils # (auto) 0 10 ^3/uL (0-0.2); Basophils % (auto) 0.3 % (0.0-2.0); Eosinophils # (auto) 0 10 ^3/uL (0-0.8); Eosinophils % (auto) 0.5 % (0.0-7.0); Hematocrit 26.8 % (36.0-46.0); Lymphocytes # (auto) 0.1 10 ^3/uL (0.4-5.4); Lymphocytes % (auto) 5.7 % (10.0-50.0); Mean Corpuscular Hgb Conc. 33.6 g/dL (32.0-36.0); Mean Corpuscular Volume 86.1 fL (80.0-100.0); Monocytes # (auto) 0.3 10 ^3/uL (0-1.3); Monocytes % (auto) 11.7 % (0.0-12.0); Neutrophils # (auto) 2.1 10 ^3/uL (1.6-8.6); Neutrophils % (auto) 81.8 % (37.0-80.0); Nucleated Red Blood Cells % 0.1 %; Platelet Count (auto) 303 10^3/uL (140-450); Red Blood Cells 3.12 10^6/uL (4.0-5.20); Red Cell Distribution Width 17.1 % (11.8-14.3); White Blood Cell 2.5 10^3/uL (4.4-10.8)
[2024-06-19 14:19] LABS: Chloride 100 mmol/L (98-107); Potassium 4.7 mmol/L (3.5-5.1)
[2024-06-19 14:20] LABS: Anion Gap 8 (5-15); Carbon Dioxide 21 mmol/L (20-31)
[2024-06-19 14:25] LABS: BUN/Creatinine Ratio 23.7 (10.0-20.0); Blood Urea Nitrogen 22 mg/dL (9-23)
[2024-06-19 14:26] LABS: Glucose 121 mg/dL (74-106); Sodium 129 mmol/L (136-145)
[2024-06-19 14:54] LABS: Urine Bacteria None Seen /hpf (None Seen)
[2024-06-19 15:16] LABS: Urine Blood Negative /uL (Negative); Urine Clarity Clear (Clear); Urine Color Yellow (Yellow); Urine Protein, UAD Negative (Negative); Urine Specific Gravity 1.024 (1.001-1.035); Urine Squamous Epithelial Cell FEW /hpf (<5); Urine Urobilinogen 2 mg/dL (Negative); Urine WBC <1 /hpf (0 - 5); Urine pH 6.5 (5.0-9.0)
--- NOTE | 2024-06-19 19:10 | DVHHPRES ---
History of Present Illness Resident Creating Document: JHAJELENA MinLAMONTE RESIDENT History of Present Illness Patient is a 79-year-old female with a past medical history of rheumatoid arthritis, Sjogren syndrome, myelodysplastic syndrome, hypertension came to the ED with a chief complaint of abdominal pain which started in the afternoon. Patient lives by herself and around in the afternoon her daughter was visiting and she saw with the patient to be in discomfort due to the abdominal pain. Daughter reports that patient got up from sitting and was walking in the [place] when she suddenly went all pale and had to sit down because of the feeling dizzy. Patient reported that she was feeling severe abdominal pain and she had to sit down. After a few minutes the patient has started shaking following which daughter brought the patient to the hospital for further evaluation. Patient reports that her bowel movement was about 3 days ago and since then she has been trying to the restroom to pass stool but she has not been able to. Patient reports that she is not passing gas since yesterday. Patient denied nausea, vomiting, diarrhea. Daughter reports the patient had flu-like illness week ago with symptoms of cough, congestion. Past medical history: rheumatoid arthritis, Sjogren syndrome, myelodysplastic syndrome, hypertension Past surgical history: Cholecystectomy, hysterectomy Social history: Patient lives alone and denies current smoking, alcohol, drug use Home medications: Etodolac 200 mg b.i.d., cevimeline 30 mg b.i.d. for Sjogren's dry mouth, cyclosporine 1 drop each eye b.i.d. for dry eyes, lisinopril 20 mg q.d., abatacept weekly Review of Systems Review of Systems Patient complains of [id number]-[id number] abdominal pain which is exacerbated by the patient tries to get up from the wheelchair or tries to exert. Denied nausea, vomiting Reports that her last bowel movement was 3 days ago Patient denied dysuria, suprapubic pain, flank pain, bleeding per vaginum Allergies: Coded Allergies: NO KNOWN ALLERGIES (Unverified , 03/31/10) Exam Vital Signs Vital Signs Date Time Temp Pulse Resp B/P (MAP) Pulse Ox O2 Delivery O2 Flow Rate FiO2 06/19/24 17:34 98.1 80 19 144/60 (88) 100 98.1 Exam Physical Examination Constitutional: Patient was A&O x4 to time, place and person and appears to be in acute distress because of the abdominal pain. Gen - no pallor, no icterus, no cyanosis, no clubbing, no LAD, no edema . Skin - Patients skin is warm and dry. HEENT - normocephalic, atraumatic, dry mucous membranes. Neck - full ROM, no LAD, no JVD. Pulmonary - B/L vesicular breath sounds. no crackles , no wheezing, no stridor. cardiovascular - normal S1,S2 heard. no murmurs heard. GI - soft abdomen with tenderness to palpation in the umbilical, hypogastrium quadrants. no hepatospleenomegaly. Bowel sounds normoactive Neurological - Bilateral upper extremity strength 4/5, bilateral lower extremity strength 4/5, no facial droop, normal speech, no tremor, no sensory deficiets. Labs/Xrays Labs Test 06/19/24 14:12 06/19/24 13:47 Range/Units Urine Color Yellow Yellow Urine Clarity Clear Clear Urine pH 6.5 5.0-9.0 Urine Specific [place] 1.024 1.001-1.035 Urine Protein Negative Negative Urine Ketones Negative Negative Urine Blood Negative Negative /uL Urine Nitrite Negative Negative Urine Bilirubin 3+ H Negative Urine Urobilinogen 2 H Negative mg/dL Urine Leukocyte Esterase Negative Negative /uL Urine RBC 2 0 - 4 /hpf Urine WBC <1 0 - 5 /hpf Urine Squamous Epithelial Cells Few <5 /hpf Urine Bacteria None seen None Seen /hpf Urine Glucose Normal Normal mg/dL White Blood Count 2.5 L 4.4-10.8 10^3/uL Red Blood Count 3.12 L 4.0-5.20 10^6/uL Hemoglobin 9.0 L 12.2-16.2 g/dL Hematocrit 26.8 L 36.0-46.0 % Mean Corpuscular Volume 86.1 80.0-100.0 fL Mean Corpuscular Hemoglobin 29.0 28.0-32.0 pg Mean Corpuscular Hemoglobin Concent 33.6 32.0-36.0 g/dL Red Cell Distribution Width 17.1 H 11.8-14.3 % Platelet Count 303 140-450 10^3/uL Mean Platelet Volume 6.4 L 6.9-10.8 fL Neutrophils (%) (Auto) 81.8 H 37.0-80.0 % Lymphocytes (%) (Auto) 5.7 L 10.0-50.0 % Monocytes (%) (Auto) 11.7 0.0-12.0 % Eosinophils (%) (Auto) 0.5 0.0-7.0 % Basophils (%) (Auto) 0.3 0.0-2.0 % Neutrophils # (Auto) 2.1 1.6-8.6 10 ^3/uL Lymphocytes # (Auto) 0.1 L 0.4-5.4 10 ^3/uL Monocytes # (Auto) 0.3 0-1.3 10 ^3/uL Eosinophils # (Auto) 0 0-0.8 10 ^3/uL Basophils # (Auto) 0 0-0.2 10 ^3/uL Nucleated Red Blood Cells 0.1 % Sodium Level 129 L 136-145 mmol/L Potassium Level 4.7 3.5-5.1 mmol/L Chloride Level 100 98-107 mmol/L Carbon Dioxide Level 21 20-31 mmol/L Anion Gap 8 5-15 Blood Urea Nitrogen 22 9-23 mg/dL Creatinine 0.93 0.550-1.02 mg/dL Glomerular Filtration Rate Calc 63 >90 mL/min BUN/Creatinine Ratio 23.7 H 10.0-20.0 Serum Glucose 121 H 74-106 mg/dL Calcium Level 9.0 8.7-10.4 mg/dL Troponin I High Sensitivity 5 </=34 ng/L Assessment/Plan Assessment/Plan Acute abdominal pain ? Constipation due to large adnexal mass ? Enterocolitis Sirs positive Pancreatitis ruled out Right adnexal mass ?Ovarian neoplasm - CT abdomen pelvis without contrast showed Multiloculated cystic mass in the right adnexa measuring up to 64 mm concerning for ovarian neoplasm - Pelvic ultrasound shows 1.6.2 x 5.4 x 6.3 cm multilocular cystic lesion in the right adnexa. Per ORADS criteria, contrast enhanced MRI is recommend for further evaluation. 2.Bilateral ovaries not visualized. 3.Status post hysterectomy. - patient given lactulose - 1 dose of ceftriaxone 1 g IV and metronidazole 500 mg IV given - OBGYN consulted - MRI abdomen with and without contrast pending Uncontrolled hypertension - lisinopril 10 mg - monitor vitals Hyponatremia - serum sodium trended 129-> 125 - serum osmolality, urine osmolality, urine studies pending -given IV NS bolus 500 ml over 2 hours - followed by NS 500 mL at 75 mL/hour Goals of care discussed with the patient and daughter for over 25 minutes. Full code Plan discussed with Dr. Waggoner Plan discussed with: Patient, Daughter My Orders Orders - SIVA BAEZ Procedure Category Date Status Time Admit ADMIT 06/19/24 Transmitted 18:34 Complete Blood Count LAB 06/19/24 Logged 18:34 Comprehensive LAB 06/19/24 Logged Metabolic Panel 18:34 Thyroid Stimulating LAB 06/19/24 Logged Hormone 18:34 Drug Screen LAB 06/19/24 Logged 18:34 Covid19 Antigen Claudine LAB 06/19/24 Logged Rapid Influenza A&B LAB 06/19/24 Logged 18:34 Pelvic US 06/19/24 Logged 18:34 PTPTT LAB 06/19/24 Logged 18:34 Chest Xray 1 View XY 06/19/24 Logged 18:34 Lipase LAB 06/19/24 Logged 18:34 Date of Service: Jun 19, 2024 Billing Provider: [place] WAGGONER MD Common Visit Codes: 00442-[id number] INP/OBS CARE (HIGH) Secondary Visit Codes: 39365-[id number] CARE PLAN 30 MINUTES SIVA BAEZ RESIDENT Jun 19, 2024 19:10 [place] WAGGONER MD Jun 20, 2024 08:21
[2024-06-19 19:45] VITALS: PULSE 77; RESP 18; O2SAT 98
[2024-06-19 19:46] LABS: Mean Corpuscular Hgb Conc. 33.4 g/dL (32.0-36.0); Mean Corpuscular Volume 86.9 fL (80.0-100.0); Platelet Count (auto) 295 10^3/uL (140-450); Red Blood Cells 3.45 10^6/uL (4.0-5.20); Red Cell Distribution Width 16.9 % (11.8-14.3); White Blood Cell 5.1 10^3/uL (4.4-10.8)
[2024-06-19] MEDS: SODIUM CHLORIDE 0.9% 500 ML IV ONE ×2 (20:00→23:40)
[2024-06-19 20:02] LABS: Basophils % (manual) 0 (0.0-2.0); Blast Cells 0; Eosinophils % (manual) 0 (0-7); Metamyelocytes % 0; Myelocytes % 0; Promyelocytes % 0; Reactive Lymphocytes 0
--- NOTE | 2024-06-19 20:06 | DVH ---
EXAM: XY CHEST XRAY 1 VIEW TECHNIQUE: Single frontal chest radiograph CLINICAL HISTORY: SOB COMPARISON: None Findings/Impression: Frontal chest radiograph demonstrates no acute osseous or superficial soft tissue abnormalities. The trachea is midline. The cardiac silhouette and mediastinum are within normal limits. No pneumothorax, pleural effusions, or consolidations.
[2024-06-19 20:10] LABS: INR 0.94 (0.9-1.15); Partial Thromboplastin Time 26.3 SEC (24.5-34.5)
[2024-06-19 20:15] LABS: Alanine Aminotransferase 12 U/L (7-40); Albumin 3.8 g/dL (3.2-4.8); Anion Gap 8 (5-15); Aspartate Aminotransferase 27 U/L (13-40); BUN/Creatinine Ratio 19.8 (10.0-20.0); Bilirubin, Total 0.3 mg/dL (0.2-1.0); Blood Urea Nitrogen 18 mg/dL (9-23); Calcium 9.9 mg/dL (8.7-10.4); Potassium 4.1 mmol/L (3.5-5.1); Total Protein 7.9 g/dL (5.7-8.2)
--- NOTE | 2024-06-19 20:23 | DVH ---
EXAM: US PELVIC CLINICAL HISTORY: right adenexal mass TECHNIQUE: Transabdominal ultrasound of the pelvis with color Doppler flow as clinically indicated. COMPARISON: None Findings: Status post hysterectomy. Bilateral ovaries not visualized. 6.2 x 5.4 x 6.3 cm anechoic, septated, multilocular lesion in the r ight adnexa. No free fluid in the cul-de-sac. Impression: 1. 6.2 x 5.4 x 6.3 cm multilocular cystic lesion in the right adnexa. Per ORADS criteria, contrast en hanced MRI is recommend for further evaluation. 2. Bilateral ovaries not visualized. 3. Status post hysterectomy.
[2024-06-19 20:26] LABS: Alkaline Phosphatase 132 U/L (46-116); Carbon Dioxide 20 mmol/L (20-31); Chloride 97 mmol/L (98-107); Glucose 128 mg/dL (74-106); Sodium 125 mmol/L (136-145)
[2024-06-19 20:40] LABS: COVID19 ANTIGEN SOFIA FIA NEGATIVE (NEGATIVE)
[2024-06-19 20:41] LABS: Rapid Influenza A Negative (Negative); Rapid Influenza B Negative (Negative)
[2024-06-19 21:13] LABS: Lipase 50 U/L (12-53)
[2024-06-19] MEDS: cefTRIAXone 1GM/50ML D5W 50 ML IV ONE (21:15)
[2024-06-19] MEDS: LACTULOSE 20Gm/30ML SOLN PO ONE (21:15)
[2024-06-19] MEDS: LISINOPRIL 5 MG TAB PO ONE (21:15)
[2024-06-19] MEDS: IBUPROFEN 600 MG TAB PO PRN (21:15)
[2024-06-19 21:28] LABS: Band Neutrophils % (manual) 9; Lymphocytes % (manual) 13 (10.0-50.0); Monocytes % (manual) 2 (0-12); Platelet Estimate Adequate
[2024-06-19 21:47] LABS: Amphetamine Screen, Urine Neg (NEGATIVE); Barbiturate Scree,Urine Neg (NEGATIVE); Benzodiazephine Screen, Urine Neg (NEGATIVE); Cannabinoid Screen, Urine Neg (NEGATIVE); Cocaine Screen, Urine Neg (NEGATIVE); Opiate Scree,Urine Neg (NEGATIVE); Phencyclidine Screen, Urine Neg (NEGATIVE)
[2024-06-19] MEDS: metroNIDAZOLE 500MG/100ML 100 ML IV ONE (21:58)
[2024-06-19] MEDS: MELATONIN 5 MG TAB PO SCH (23:01)
[2024-06-20] VITALS (9 sets, daily range): BP systolic 122–144; BP diastolic 56–71; PULSE 67–80; RESP 12–18; TEMP 97.7–98.3; O2SAT 93–100
[2024-06-20] MEDS: ACETAMINOPHEN 325 MG TAB PO PRN (03:37)
[2024-06-20] MEDS ORDERED: CALC950T2 PO (03:55)
[2024-06-20] MEDS ORDERED: ASCO500T11 PO (03:55)
[2024-06-20] MEDS ORDERED: ETOD200C2 PO (03:55)
[2024-06-20] MEDS ORDERED: LISI20TA56 PO (03:55)
[2024-06-20] MEDS ORDERED: POM (03:55)
--- NOTE | 2024-06-20 10:08 | DVH ---
Bilateral lower extremity venous duplex Clinical History: edema Comparison: None Technique: Duplex Doppler evaluation of the deep venous systems of both lower extremities from the common femora l veins to the popliteal veins including color Doppler and spectral/pulsed waveform analysis was perf ormed. Findings: RIGHT SIDE: The common femoral vein demonstrates appropriate compressibility and waveform variability. There is compressibility/patency of the great saphenous vein at the proximal thigh. The femoral vein demonstrates appropriate compressibility and waveform variability. The deep femoral vein demonstrates appropriate compressibility and waveform variability. The popliteal vein demonstrates appropriate compressibility and waveform variability. There is normal compressibility at the tibioperoneal trunk. LEFT SIDE: The common femoral vein demonstrates appropriate compressibility and waveform variability. There is compressibility/patency of the great saphenous vein at the proximal thigh. The femoral vein demonstrates appropriate compressibility and waveform variability. The deep femoral vein demonstrates appropriate compressibility and waveform variability. The popliteal vein demonstrates appropriate compressibility and waveform variability. There is normal compressibility at the tibioperoneal trunk. Impression: No right or left femoropopliteal venous thrombosis.
[2024-06-20] MEDS: SODIUM CHLORIDE 0.9% 500 ML IV ONE (11:30)
[2024-06-20] MEDS ORDERED: GADOTERATE MEG 10 MMOL/20ml INJ (0.5MMOL/ml) IV ONE (13:02)
[2024-06-20] MEDS: ENOXAPARIN SOD 40 MG/0.4 ML SYRINGE SC SCH (13:22)
[2024-06-20 14:29] LABS: Basophils # (auto) 0 10 ^3/uL (0-0.2); Eosinophils # (auto) 0 10 ^3/uL (0-0.8); Monocytes # (auto) 0.2 10 ^3/uL (0-1.3); Neutrophils # (auto) 0.3 10 ^3/uL (1.6-8.6)
[2024-06-20 14:35] LABS: Basophils % (auto) 1.1 % (0.0-2.0); Hematocrit 28.1 % (36.0-46.0); Hemoglobin 9.3 g/dL (12.2-16.2); Lymphocytes # (auto) 0.6 10 ^3/uL (0.4-5.4); Lymphocytes % (auto) 48.5 % (10.0-50.0); Neutrophils % (auto) 27.8 % (37.0-80.0); Nucleated Red Blood Cells % 0.4 %; Platelet Count (auto) 241 10^3/uL (140-450); Red Cell Distribution Width 17.9 % (11.8-14.3)
[2024-06-20 14:38] LABS: Chloride 101 mmol/L (98-107); Potassium 4.1 mmol/L (3.5-5.1)
[2024-06-20 14:39] LABS: Anion Gap 5 (5-15); Calcium 9.6 mg/dL (8.7-10.4); Carbon Dioxide 21 mmol/L (20-31)
[2024-06-20 14:44] LABS: BUN/Creatinine Ratio 20.9 (10.0-20.0); Blood Urea Nitrogen 18 mg/dL (9-23); Glucose 89 mg/dL (74-106)
[2024-06-20 14:45] LABS: Sodium 127 mmol/L (136-145)
[2024-06-20 14:57] LABS: Monocytes % (auto) 20.6 % (0.0-12.0)
[2024-06-20 14:59] LABS: White Blood Cell 1.2 10^3/uL (4.4-10.8)
[2024-06-20] MEDS ORDERED: SODIUM CHLORIDE 0.9% 500 ML IV ONE (15:45)
--- NOTE | 2024-06-20 15:51 | DVHINCON2 ---
DATE OF CONSULTATION: 06/20/2024 REASON FOR CONSULTATION: Adnexal mass. HISTORY OF PRESENT ILLNESS: The patient is a 79-year-old female admitted for acute abdominal pain. The patient has had longstanding history of constipation. On admission, the patient was so constipated that had not even pass gas. She denies having any vaginal bleeding or any other issues. Her ultrasound reveals right adnexal mass, multilocular mass, which is septated, 6 x 5 x 6. The patient is status post hysterectomy. Her CA-125 is pending. At the time of this consultation, the patient stated that she had a bowel movement and feels a lot better. She has no pain. She is not using any pain medication. PAST MEDICAL HISTORY: Arthritis, hypertension. PAST SURGICAL HISTORY: Cholecystectomy, hysterectomy. SOCIAL HISTORY: None. FAMILY HISTORY: None. OBSTETRIC AND GYNECOLOGIC HISTORY: The patient is hysterectomized. REVIEW OF SYSTEMS: CONSTITUTIONAL: Denies chills, fever. CARDIOVASCULAR: Denies chest pain, dizzy spells. RESPIRATORY: Denies cough, hemoptysis. GASTROINTESTINAL: Positive for abdominal distention, constipation. GENITOURINARY: No abnormal bleeding, dysuria. NEUROLOGICAL: Denies dizziness, fainting. MUSCULOSKELETAL: Denies back pain, gout, joint pain. PSYCHIATRIC: Denies anxiety. PHYSICAL EXAMINATION: VITAL SIGNS: Stable, afebrile. HEENT: Within normal limits. CARDIOVASCULAR: Regular rate and rhythm. LUNGS: Clear to auscultation. BREASTS: Symmetrical. No masses. ABDOMEN: Soft, nontender. No rigidity. No rebound. PELVIC: External genitalia within normal limits. Vagina normal. Atrophic cervix. Uterus absent. Adnexa nonpalpable. EXTREMITIES: No clubbing, cyanosis or edema. IMPRESSION: * Acute abdominal pain secondary to constipation, which is resolving. * Right adnexal multilocular septated cyst. * Atrophic vaginitis. RECOMMENDATION: MRI of the pelvis. Await CA-125. We will follow. Thank you very much for this consultation. DO NEGRITO Nagel TID: [id number] RECEIPT: [id number]
[2024-06-20 17:37] LABS: Platelet Estimate Adequate
--- NOTE | 2024-06-20 20:30 | DVHPNRES ---
Progress Note Date Seen: Jun 20, 2024 Resident Creating Document: ELENA BAEZLAMONTE RESIDENT Medical Necessity Reason Pt with a Central, PICC or Fol: No Subjective Review of Systems Patient reported that her abdominal pain has subsided. Reports that she had a bowel movement. Denies fever, chills, nausea, vomiting. Objective vital signs Vital Sign Date Time Temp Pulse Resp B/P (MAP) Pulse Ox O2 Delivery O2 Flow Rate FiO2 06/20/24 16:38 98.0 78 16 126/56 (79) 93 98.0 06/20/24 08:00 Room Air* 0 21 Total Intake and Output 06/19/24 06/19/24 06/20/24 15:00 23:00 07:00 Intake Total 75 ml Balance 75 ml medications Current Medications Medications Dose Ordered Sig/Lilly Route Start Time Stop Time Status Last Admin Dose Admin Ibuprofen 600 mg Q8HP PRN PO 06/19/24 19:30 06/19/24 21:15 600 MG Patient Own Medication 1 BID EACHEYE 06/19/24 22:00 Acetaminophen 650 mg Q4HP PRN PO 06/19/24 22:45 06/20/24 03:37 650 MG Melatonin 10 mg HS PO 06/19/24 23:00 06/19/24 23:01 10 MG Enoxaparin Sodium 40 mg DAILY SC 06/20/24 10:00 06/20/24 13:22 40 MG Lactulose 30 ml DAILYPRN PRN PO 06/20/24 17:45 Examination Constitutional: Patient was A&O x4 to time, place and person and does not appear to be in acute distress Gen - no pallor, no icterus, no cyanosis, no clubbing, no LAD, no edema . Skin - Patients skin is warm and dry. HEENT - normocephalic, atraumatic, dry mucous membranes. Neck - full ROM, no LAD, no JVD. Pulmonary - B/L vesicular breath sounds. no crackles , no wheezing, no stridor. cardiovascular - normal S1,S2 heard. no murmurs heard. GI - soft abdomen without tenderness to palpation. no hepatospleenomegaly. Bowel sounds normoactive Neurological - Bilateral upper extremity strength 4/5, bilateral lower extremity strength 4/5, no facial droop, normal speech, no tremor, no sensory deficiets laboratory and microbiology Laboratory Tests 06/20/24 13:53 Test 06/20/24 13:53 Range/Units Serum Glucose 89 74-106 mg/dL Problem List/Assessment/Plan Problem List/Assessment/Plan Acute abdominal pain ? Constipation due to large adnexal mass Sirs positive Pancreatitis ruled out Right adnexal mass ?Ovarian neoplasm - CT abdomen pelvis without contrast showed Multiloculated cystic mass in the right adnexa measuring up to 64 mm concerning for ovarian neoplasm - Pelvic ultrasound shows 1.6.2 x 5.4 x 6.3 cm multilocular cystic lesion in the right adnexa. Per ORADS criteria, contrast enhanced MRI is recommend for further evaluation. 2.Bilateral ovaries not visualized. 3.Status post hysterectomy. - patient given lactulose - 1 dose of ceftriaxone 1 g IV and metronidazole 500 mg IV given - OBGYN consulted - MRI abdomen with and without contrast 1. 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 Recommend engineering technologist consultation for possibility of excisional biopsy. No pelvic lymphadenopathy noted. 2. Mildly dilated small bowel in the pelvis with irregular circumferential mural thickening measuring up to 1 cm in thickness concerning for an infiltrative lesion. Suggest further evaluation CT or MR enterography. - CA 125 pending Uncontrolled hypertension - lisinopril 10 mg - monitor vitals Hyponatremia - serum sodium trended 129-> 125 - serum osmolality, urine osmolality, urine studies pending - IV fluids Leukocytopenia H/o Myelodysplastic syndrome - neutropenic precautions in place Goals of care discussed with the patient and daughter for over 25 minutes. Full code Plan discussed with Dr. Strange Plan discussed with: Patient, Daughter My Orders My Orders Orders - SIVA BAEZ RESIDENT Procedure Category Date Status Time Acetaminophen Tablet PHA 06/19/24 In Process (Tylenol Tablet) 22:45 Cancer Antigen (Ca) LAB 06/19/24 In Process 125 23:00 Code Status CODE 06/19/24 Transmitted 23:10 Bilat Lower Dvt US 06/20/24 Resulted 08:37 Enoxaparin Sodium PHA 06/20/24 In Process (Lovenox) 10:00 Precautions: DUY 06/20/24 In Process Neutropenic 15:28 Sodium Chloride 0.9% PHA 06/20/24 In Process 15:45 Lactulose Oral PHA 06/20/24 In Process 17:45 Date of Service: Jun 20, 2024 Billing Provider: NEFTALI STRANGE MD Common Visit Codes: [id number] INP/OBS CARE(HIGH) SIVA BAEZ RESIDENT Jun 20, 2024 20:30 NEFTALI STRANGE MD Jun 21, 2024 15:18
--- NOTE | 2024-06-20 20:45 | DVH ---
EXAM: MRI PELVIS WO W CONTRAST MRI HISTORY: right adenexal mass COMPARISON: CT scan dated 06/19/2024 TECHNIQUE: Multiplanar, multisequence MRI was performed. FINDINGS: The uterus is surgically absent. A large, 7.1 x 6.5 x 6.2 cm multilocular septated mass 0.6 cm septal calcification noted in the right-sided pelvis. No pelvic lymphadenopathy noted. The bilateral ovari es are not identified. Free fluid in cul-de-sac. A mildly dilated loop of small bowel noted in the pelvis measuring 2.7 cm in caliber with moderate ci rcumferential mural thickening of 1 cm. Visualized sigmoid colon and rectum are unremarkable. There i s lumbar scoliosis and multilevel degenerative disc disease. Mild right hip joint osteoarthritis. IMPRESSION: 1. 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 Recommend g yn consultation for possibility of excisional biopsy. No pelvic lymphadenopathy noted. 2. The uterus is surgically absent. No residual / recurrent disease noted. 3. The left ovary /adnexum is not identified. 4. Mildly dilated small bowel in the pelvis with irregular circumferential mural thickening measuring up to 1 cm in thickness concerning for an infiltrative lesion. Suggest further evaluation CT or MR e nterography.
[2024-06-20] MEDS ORDERED: MELATONIN 5 MG TAB PO SCH (22:00)
[2024-06-21 01:00] VITALS: BP 142/64; PULSE 75; RESP 18; TEMP 97.8; O2SAT 98
[2024-06-21 05:00] VITALS: BP 140/71; PULSE 64; RESP 18; TEMP 97.9; O2SAT 98
[2024-06-21 07:24] LABS: Basophils # (auto) 0 10 ^3/uL (0-0.2); Eosinophils # (auto) 0.1 10 ^3/uL (0-0.8); Hematocrit 25.2 % (36.0-46.0); Lymphocytes # (auto) 0.7 10 ^3/uL (0.4-5.4); Monocytes # (auto) 0.3 10 ^3/uL (0-1.3); Neutrophils # (auto) 0 10 ^3/uL (1.6-8.6); Nucleated Red Blood Cells % 0.2 %; Platelet Count (auto) 229 10^3/uL (140-450); Red Blood Cells 2.92 10^6/uL (4.0-5.20)
[2024-06-21 07:28] LABS: Basophils % (auto) 2.2 % (0.0-2.0); Eosinophils % (auto) 6.3 % (0.0-7.0); Hemoglobin 8.5 g/dL (12.2-16.2); Lymphocytes % (auto) 63.7 % (10.0-50.0); Mean Corpuscular Hemoglobin 29.2 pg (28.0-32.0); Mean Corpuscular Hgb Conc. 33.8 g/dL (32.0-36.0); Mean Corpuscular Volume 86.3 fL (80.0-100.0); Monocytes % (auto) 24.9 % (0.0-12.0); Neutrophils % (auto) 2.9 % (37.0-80.0); Red Cell Distribution Width 17.4 % (11.8-14.3)
[2024-06-21 07:39] LABS: Calcium 9.3 mg/dL (8.7-10.4); Chloride 103 mmol/L (98-107); Potassium 4.2 mmol/L (3.5-5.1)
[2024-06-21 07:40] LABS: Anion Gap 4 (5-15); Carbon Dioxide 22 mmol/L (20-31)
[2024-06-21 07:45] LABS: BUN/Creatinine Ratio 23.1 (10.0-20.0); Blood Urea Nitrogen 18 mg/dL (9-23); Glucose 86 mg/dL (74-106)
[2024-06-21 07:46] LABS: Sodium 129 mmol/L (136-145)
[2024-06-21 09:00] VITALS: BP 139/77; PULSE 65; RESP 16; TEMP 98.3; O2SAT 98
[2024-06-21 13:00] VITALS: BP 123/69; PULSE 63; RESP 15; TEMP 98.2; O2SAT 96
[2024-06-21 16:31] VITALS: BP 146/59; PULSE 65; RESP 15; TEMP 98.1; O2SAT 95
[2024-06-21 21:00] VITALS: BP 151/72; PULSE 71; RESP 17; TEMP 98.3; O2SAT 96
--- NOTE | 2024-06-21 22:16 | DVHPNRES ---
Progress Note Date Seen: Jun 21, 2024 Resident Creating Document: ELENA BAEZLAMONTE RESIDENT Medical Necessity Reason Pt with a Central, PICC or Fol: No Subjective Review of Systems Patient reported that her abdominal pain has subsided. Reports that she had a bowel movement. Denies fever, chills, nausea, vomiting. Objective vital signs Vital Sign Date Time Temp Pulse Resp B/P (MAP) Pulse Ox O2 Delivery O2 Flow Rate FiO2 06/21/24 21:00 98.3 71 17 151/72 (98) 96 98.3 06/21/24 08:00 Room Air* 0 21 Total Intake and Output 06/20/24 06/20/24 06/21/24 15:00 23:00 07:00 Intake Total 200 ml Balance 200 ml medications Current Medications Medications Dose Ordered Sig/Lilly Route Start Time Stop Time Status Last Admin Dose Admin Ibuprofen 600 mg Q8HP PRN PO 06/19/24 19:30 06/19/24 21:15 600 MG Patient Own Medication 1 BID EACHEYE 06/19/24 22:00 06/21/24 21:26 1 Acetaminophen 650 mg Q4HP PRN PO 06/19/24 22:45 06/21/24 00:20 650 MG Melatonin 10 mg HS PO 06/19/24 23:00 06/21/24 21:26 10 MG Enoxaparin Sodium 40 mg DAILY SC 06/20/24 10:00 06/21/24 09:35 40 MG Lactulose 30 ml DAILYPRN PRN PO 06/20/24 17:45 Patient Own Medication 1 BID PO 06/21/24 10:00 06/21/24 21:26 1 Examination Constitutional: Patient was A&O x4 to time, place and person and does not appear to be in acute distress Gen - no pallor, no icterus, no cyanosis, no clubbing, no LAD, no edema . Skin - Patients skin is warm and dry. HEENT - normocephalic, atraumatic, dry mucous membranes. Neck - full ROM, no LAD, no JVD. Pulmonary - B/L vesicular breath sounds. no crackles , no wheezing, no stridor. cardiovascular - normal S1,S2 heard. no murmurs heard. GI - soft abdomen without tenderness to palpation. no hepatospleenomegaly. Bowel sounds normoactive Neurological - Bilateral upper extremity strength 4/5, bilateral lower extremity strength 4/5, no facial droop, normal speech, no tremor, no sensory deficiets laboratory and microbiology Laboratory Tests 06/21/24 04:55 Test 06/21/24 04:55 Range/Units Serum Glucose 86 74-106 mg/dL Problem List/Assessment/Plan Problem List/Assessment/Plan Acute abdominal pain ? Constipation due to large adnexal mass Sirs positive Pancreatitis ruled out Right adnexal mass ?Ovarian neoplasm - CT abdomen pelvis without contrast showed Multiloculated cystic mass in the right adnexa measuring up to 64 mm concerning for ovarian neoplasm - Pelvic ultrasound shows 1.6.2 x 5.4 x 6.3 cm multilocular cystic lesion in the right adnexa. Per ORADS criteria, contrast enhanced MRI is recommend for further evaluation. 2.Bilateral ovaries not visualized. 3.Status post hysterectomy. - patient given lactulose - 1 dose of ceftriaxone 1 g IV and metronidazole 500 mg IV given - OBGYN consulted - MRI abdomen with and without contrast 1. 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 Recommend application integration architect consultation for possibility of excisional biopsy. No pelvic lymphadenopathy noted. 2. Mildly dilated small bowel in the pelvis with irregular circumferential mural thickening measuring up to 1 cm in thickness concerning for an infiltrative lesion. Suggest further evaluation CT or MR enterography. - CA 125 WNL Uncontrolled hypertension - lisinopril 10 mg - monitor vitals Hyponatremia - resolving - IV fluids Leukocytopenia H/o Myelodysplastic syndrome - neutropenic precautions in place - Hem/Onc consulted Goals of care discussed with the patient and daughter for over 25 minutes. Full code Plan discussed with Dr. Strange Plan discussed with: Patient, Daughter, Son My Orders My Orders Orders - SIVA BAEZ Procedure Category Date Status Time Patients Own PHA 06/21/24 In Process Medication 10:00 * Hematology/Oncology CONS 06/21/24 Transmitted Consult 12:10 Maintain Fluid DUY 06/21/24 In Process Restrictions 13:58 Cardiac DIET 06/21/24 Verified Diet-2gna,Lofat,Lochol Dinner Date of Service: Jun 21, 2024 Billing Provider: NEFTALI STRANGE MD Common Visit Codes: [id number] INP/OBS CARE(HIGH) SIVA BAEZ RESIDENT Jun 21, 2024 22:16 NEFTALI STRANGE MD Jun 22, 2024 15:11
[2024-06-22 05:00] VITALS: BP 146/74; PULSE 63; RESP 17; TEMP 97.6; O2SAT 99
[2024-06-22 06:03] LABS: Basophils # (auto) 0 10 ^3/uL (0-0.2); Eosinophils # (auto) 0.1 10 ^3/uL (0-0.8); Lymphocytes # (auto) 0.6 10 ^3/uL (0.4-5.4); Mean Corpuscular Hemoglobin 29.3 pg (28.0-32.0); Monocytes # (auto) 0.3 10 ^3/uL (0-1.3); Neutrophils # (auto) 0 10 ^3/uL (1.6-8.6)
[2024-06-22 06:06] LABS: Eosinophils % (auto) 8.1 % (0.0-7.0); Hematocrit 26.6 % (36.0-46.0); Mean Corpuscular Hgb Conc. 33.7 g/dL (32.0-36.0); Mean Corpuscular Volume 86.9 fL (80.0-100.0); Monocytes % (auto) 30.4 % (0.0-12.0); Neutrophils % (auto) 1.2 % (37.0-80.0); Nucleated Red Blood Cells % 0.3 %; Platelet Count (auto) 255 10^3/uL (140-450); Red Blood Cells 3.06 10^6/uL (4.0-5.20); Red Cell Distribution Width 17.4 % (11.8-14.3)
[2024-06-22 06:31] LABS: Carbon Dioxide 21 mmol/L (20-31)
[2024-06-22 06:32] LABS: Calcium 9.4 mg/dL (8.7-10.4)
[2024-06-22 06:33] LABS: Anion Gap 6 (5-15); Chloride 103 mmol/L (98-107); Potassium 4.3 mmol/L (3.5-5.1)
[2024-06-22 06:36] LABS: Glucose 87 mg/dL (74-106)
[2024-06-22 06:37] LABS: BUN/Creatinine Ratio 18.8 (10.0-20.0); Blood Urea Nitrogen 15 mg/dL (9-23)
[2024-06-22 06:40] LABS: Lymphocytes % (auto) 60.3 % (10.0-50.0); Sodium 130 mmol/L (136-145)
[2024-06-22 06:47] LABS: White Blood Cell 1.1 10^3/uL (4.4-10.8)
[2024-06-22 07:10] LABS: Anisocytosis Slight; Platelet Estimate Adequate
[2024-06-22 09:00] VITALS: BP 141/74; PULSE 64; RESP 16; TEMP 98.1; O2SAT 65; O2SAT 98
[2024-06-22] MEDS ORDERED: FILGRASTIM(TBO) 480 MCG/0.8 ML SYRG SC ONE (12:15)
[2024-06-22 13:00] VITALS: BP 145/77; PULSE 65; RESP 18; TEMP 98; O2SAT 99
[2024-06-22] MEDS: LACTULOSE 20Gm/30ML SOLN PO PRN (16:03)
[2024-06-22] MEDS: FILGRASTIM (TBO) 300 MCG/0.5 ML SYRG SC ONE (16:04)
[2024-06-22 16:50] VITALS: BP 151/87; PULSE 69; RESP 16; TEMP 97.8; O2SAT 92
[2024-06-22 17:02] VITALS: BP 150/63; TEMP 36.6
[2024-06-22] MEDS ORDERED: LACT10SO3 PO (18:40)
--- NOTE | 2024-06-22 18:42 | DVHDSRES ---
Discharge Summary Date of Admission Resident Creating Document: SIVA BAEZ RESIDENT Jun 19, 2024 at 18:34 Date of Discharge: Jun 22, 2024 Admitting Diagnosis Acute abdominal pain ? Constipation due to large adnexal mass ? Enterocolitis Sirs positive Pancreatitis ruled out Right adnexal mass ?Ovarian neoplasm Uncontrolled hypertension Hyponatremia Wounds: none Labs/Diagnostic Data: Laboratory Results Test 06/22/24 05:06 06/19/24 23:30 06/19/24 20:02 06/19/24 19:07 White Blood Count 1.1 10^3/uL (4.4-10.8) Red Blood Count 3.06 10^6/uL (4.0-5.20) Hemoglobin 9.0 g/dL (12.2-16.2) Hematocrit 26.6 % (36.0-46.0) Mean Corpuscular Volume 86.9 fL (80.0-100.0) Mean Corpuscular Hemoglobin 29.3 pg (28.0-32.0) Mean Corpuscular Hemoglobin Concent 33.7 g/dL (32.0-36.0) Red Cell Distribution Width 17.4 % (11.8-14.3) Platelet Count 255 10^3/uL (140-450) Mean Platelet Volume 6.6 fL (6.9-10.8) Neutrophils (%) (Auto) 1.2 % (37.0-80.0) Lymphocytes (%) (Auto) 60.3 % (10.0-50.0) Monocytes (%) (Auto) 30.4 % (0.0-12.0) Eosinophils (%) (Auto) 8.1 % (0.0-7.0) Basophils (%) (Auto) 0.0 % (0.0-2.0) Neutrophils # (Auto) 0 10 ^3/uL (1.6-8.6) Lymphocytes # (Auto) 0.6 10 ^3/uL (0.4-5.4) Monocytes # (Auto) 0.3 10 ^3/uL (0-1.3) Eosinophils # (Auto) 0.1 10 ^3/uL (0-0.8) Basophils # (Auto) 0 10 ^3/uL (0-0.2) Nucleated Red Blood Cells 0.3 % Platelet Estimate Adequate Anisocytosis (manual) Slight Sodium Level 130 mmol/L (136-145) Potassium Level 4.3 mmol/L (3.5-5.1) Chloride Level 103 mmol/L (98-107) Carbon Dioxide Level 21 mmol/L (20-31) Anion Gap 6 (5-15) Blood Urea Nitrogen 15 mg/dL (9-23) Creatinine 0.80 mg/dL (0.550-1.02) Glomerular Filtration Rate Calc 75 mL/min (>90) BUN/Creatinine Ratio 18.8 (10.0-20.0) Serum Glucose 87 mg/dL (74-106) Calcium Level 9.4 mg/dL (8.7-10.4) CA 125 Antigen 5.3 U/mL (0.0-38.1) Influenza Type A Antigen Negative (Negative) Influenza Type B Antigen Negative (Negative) SARS-CoV-2 Antigen (Rapid) Negative (NEGATIVE) Differential Total Cells Counted 100.0 (100) Neutrophils % (Manual) 76 (37.0-80.0) Band Neutrophils % (Manual) 9 Lymphocytes % (Manual) 13 (10.0-50.0) Monocytes % (Manual) 2 (0-12) Eosinophils % (Manual) 0 (0-7) Basophils % (Manual) 0 (0.0-2.0) Metamyelocytes % (manual) 0 Myelocytes % (Manual) 0 Promyelocytes % (Manual) 0 Blast Cells % (Manual) 0 Reactive Lymphocytes 0 Prothrombin Time 10.0 sec (9.3-11.8) Prothrombin Time INR 0.94 (0.9-1.15) Activated Partial Thromboplast Time 26.3 SEC (24.5-34.5) Total Bilirubin 0.3 mg/dL (0.2-1.0) Aspartate Amino Transferase (AST) 27 U/L (13-40) Alanine Aminotransferase (ALT) 12 U/L (7-40) Alkaline Phosphatase 132 U/L (46-116) B-Type Natriuretic Peptide 28.28 pg/mL (0-100) Total Protein 7.9 g/dL (5.7-8.2) Albumin 3.8 g/dL (3.2-4.8) Lipase 50 U/L (12-53) Thyroid Stimulating Hormone (TSH) 1.37 uIU/mL (0.55-4.78) Beta HCG, Quantitative 2.8 mIU/mL (1.5-4.2) Test 06/19/24 14:12 06/19/24 13:47 Urine Color Yellow (Yellow) Urine Clarity Clear (Clear) Urine pH 6.5 (5.0-9.0) Urine Specific [place] 1.024 (1.001-1.035) Urine Protein Negative (Negative) Urine Ketones Negative (Negative) Urine Blood Negative /uL (Negative) Urine Nitrite Negative (Negative) Urine Bilirubin 3+ (Negative) Urine Urobilinogen 2 mg/dL (Negative) Urine Leukocyte Esterase Negative /uL (Negative) Urine RBC 2 /hpf (0 - 4) Urine WBC <1 /hpf (0 - 5) Urine Squamous Epithelial Cells Few /hpf (<5) Urine Bacteria None seen /hpf (None Seen) Urine Glucose Normal mg/dL (Normal) Urine Opiates Screen Neg (NEGATIVE) Urine Fentanyl Screen Neg (NEGATIVE) Urine Barbiturates Screen Neg (NEGATIVE) Urine Phencyclidine Screen Neg (NEGATIVE) Urine Amphetamines Screen Neg (NEGATIVE) Urine Benzodiazepines Screen Neg (NEGATIVE) Urine Cocaine Screen Neg (NEGATIVE) Urine Cannabinoids Screen Neg (NEGATIVE) Troponin I High Sensitivity 5 ng/L (</=34) Other Laboratory Tests 06/22/24 05:06 Brief Hx & Hospital Course: HPI Patient is a 79-year-old female with a past medical history of rheumatoid arthritis, Sjogren syndrome, myelodysplastic syndrome, hypertension came to the ED with a chief complaint of abdominal pain which started in the afternoon. Patient lives by herself and around in the afternoon her daughter was visiting and she saw with the patient to be in discomfort due to the abdominal pain. Daughter reports that patient got up from sitting and was walking in the [place] when she suddenly went all pale and had to sit down because of the feeling dizzy. Patient reported that she was feeling severe abdominal pain and she had to sit down. After a few minutes the patient has started shaking following which daughter brought the patient to the hospital for further evaluation. Patient reports that her bowel movement was about 3 days ago and since then she has been trying to the restroom to pass stool but she has not been able to. Patient reports that she is not passing gas since yesterday. Patient denied nausea, vomiting, diarrhea. Daughter reports the patient had flu-like illness week ago with symptoms of cough, congestion. Past medical history: rheumatoid arthritis, Sjogren syndrome, myelodysplastic syndrome, hypertension Past surgical history: Cholecystectomy, hysterectomy Social history: Patient lives alone and denies current smoking, alcohol, drug use Home medications: Etodolac 200 mg b.i.d., cevimeline 30 mg b.i.d. for Sjogren's dry mouth, cyclosporine 1 drop each eye b.i.d. for dry eyes, lisinopril 20 mg q.d., abatacept weekly Hospital course On admission patient was given lactulose as she reported of constipation to help her pass stool. Following up on the initial CT abdomen pelvis without contrast which showed a right adnexal mass, pelvic ultrasound was done followed by MRI pelvis with and without contrast which showed a 7 cm multilocular septated mass suspicious for ovarian neoplasm and mildly dilated small bowel in the pelvis with irregular circumferential mural thickening measuring up to 1 cm concerning for infiltrative lesion was seen. CA 125 was negative. OBGYN consulted who recommended patient to follow up as an outpatient at [facility] or [facility] for further management. Over the course of hospital stay, patient had leukocytopenia with very low absolute neutrophil count, patient has a history of myelodysplastic syndrome, Heme-Onc were consulted who recommended patient to be given a dose of filgrastim and no further inpatient workup required the patient already follows up in the outpatient clinic. Patient was discharged in stable condition to home advised to follow neutropenic precautions. Discharge plan Discharged in stable condition to home Advised to continue on the home medication Prescribed lactulose p.r.n. for constipation Follow up: With the PCP in 1 week With Heme-Onc in the outpatient clinic in 1-2 weeks Follow up as outpatient at either [facility] or [facility] for further workup of right adnexal mass. Consults/Reason for consult OBGYN consultation for right adnexal mass Heme-Onc consultation for leukocytopenia with neutropenia Operations or Procedures CT abdomen pelvis without contrast Findings: Evaluation of solid organs is limited due to lack of intravenous contrast use. Lung Bases: No acute or significant lung base finding. Normal heart size. No pleural or pericardial effusion. Liver: The liver is normal in size. No focal lesions. Gallbladder and biliary Tree: Gallbladder is surgically absent. Spleen: Unremarkable Pancreas: The pancreas is grossly normal in appearance. Adrenal Glands: Unremarkable Kidneys: Left renal cysts. No hydronephrosis or nephrolithiasis. Bladder: Grossly unremarkable for degree of distention. Bowel: The stomach is grossly normal in appearance. Small bowel and colon are normal in caliber and distribution. The appendix is not visualized; however, no secondary findings of acute appendicitis identified. Ascites: Absent Lymphadenopathy: No mesenteric, retroperitoneal or periportal lymphadenopathy. Abdominal wall and Mesentery: Unremarkable. Vasculature: Calcified atherosclerotic disease. Pelvic Organs: Uterus is surgically absent. Multiloculated cystic mass in the right adnexa measuring up to 64 mm with some calcification. Musculoskeletal: Rotoscoliosis with associated multilevel degenerative disease. Degenerative changes in the hips. IMPRESSION: 1. Multiloculated cystic mass in the right adnexa measuring up to 64 mm concerning for ovarian neoplasm. Pelvic Ultrasound Impression: 1. 6.2 x 5.4 x 6.3 cm multilocular cystic lesion in the right adnexa. Per ORADS criteria, contrast enhanced MRI is recommend for further evaluation. 2. Bilateral ovaries not visualized. 3. Status post hysterectomy. MRI pelvis with and without contrast FINDINGS: The uterus is surgically absent. A large, 7.1 x 6.5 x 6.2 cm multilocular septated mass 0.6 cm septal calcification noted in the right-sided pelvis. No pelvic lymphadenopathy noted. The bilateral ovaries are not identified. Free fluid in cul-de-sac. A mildly dilated loop of small bowel noted in the pelvis measuring 2.7 cm in caliber with moderate circumferential mural thickening of 1 cm. Visualized sigmoid colon and rectum are unremarkable. There is lumbar scoliosis and multilevel degenerative disc disease. Mild right hip joint osteoarthritis. IMPRESSION: 1. 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 Recommend obstetrics gynecology md consultation for possibility of excisional biopsy. No pelvic lymphadenopathy noted. 2. The uterus is surgically absent. No residual / recurrent disease noted. 3. The left ovary /adnexum is not identified. 4. Mildly dilated small bowel in the pelvis with irregular circumferential mural thickening measuring up to 1 cm in thickness concerning for an infiltrative lesion. Suggest further evaluation CT or MR enterography. Condition at Discharge: Good Final Diagnosis/Problems List Acute abdominal pain ?Constipation due to large adnexal mass Sirs positive Pancreatitis ruled out Right adnexal mass ?Ovarian neoplasm Uncontrolled hypertension Hyponatremia Leukocytopenia H/o Myelodysplastic syndrome Discharge Disposition: Home Discharge Instruct/Medications Diet: Regular Activity: No Restrictions, As Tolerated Follow Up/Referral: Follow up with the PCP in one week Follow up in the outpatient at [facility] or [facility] for further management of right pelvic mass Follow up with Heme/Onc for further management of Myelodysplastic syndrome Medications: continue home medications Lactulose for constipation Discharge Statement: "Patient was advised to return to the ER or call 911 if any headaches, dizziness, shortness of breath, chest pain, abdominal pain, bleeding, fevers, or worsening of medical condition. Patient was counseled about treatment plan, medications, possible side effects, patientverbalized understanding. All questions were answered to the best of my ability. This discharge took greater then 30 minutes in planning, reviewing documentation, counseling the patient, and discussing with other team members." ASSESSMENT ASSESSMENT Assessment Acute abdominal pain ?Constipation due to large adnexal mass Sirs positive Pancreatitis ruled out Right adnexal mass ?Ovarian neoplasm Uncontrolled hypertension Hyponatremia Leukocytopenia H/o Myelodysplastic syndrome Date of Service: Jun 22, 2024 Billing Provider: NEFTALI STRANGE MD Common Visit Codes: 22691-TOS/OBS DISCH DAY >30min SIVA BAEZ RESIDENT Jun 22, 2024 18:42 NEFTALI STRANGE MD Jun 22, 2024 21:26
== END 2024-06-22 17:45 | disposition home or self-care (01) | DRG 392 ==
LOC: EDBD 12:36 → ER 12:36 → OVERFLOW 18:34 → WEST WING 06-20 02:50
PROVIDERS: ADMIT Student in an Organized Health Care Education/Training Program; ATTEND Student in an Organized Health Care Education/Training Program
DX: R19.09 Other intra-abdominal and pelvic swelling, mass and lump (principal); E87.1 Hypo-osmolality and hyponatremia; R65.10 Systemic inflammatory response syndrome (SIRS) of non-infectious origin without acute organ dysfunction; K59.00 Constipation, unspecified; Z20.822 Contact with and (suspected) exposure to COVID-19; N95.2 Postmenopausal atrophic vaginitis; N83.9 Noninflammatory disorder of ovary, fallopian tube and broad ligament, unspecified; I10 Essential (primary) hypertension; D46.9 Myelodysplastic syndrome, unspecified; M35.00 Sjogren syndrome, unspecified; E27.9 Disorder of adrenal gland, unspecified; Z90.710 Acquired absence of both cervix and uterus; Z90.49 Acquired absence of other specified parts of digestive tract
CPT/HCPCS: 36415; 71045; 73723; 74176; 76856; 80048; 80053; 80307; 81001; 83690; 83880; 84443; 84484; 84702; 85007; 85025; 85027; 85610; 85730; 86304; 87426; 87804; 93970; 97163; G0378; J1447; J3490

== ENCOUNTER 2024-09-02 10:43 | Emergency (ER) | payer MEDICARE, OTHER ==
[~2024-09-02] VITALS: Ht 160 cm; Wt 66.3 kg
[~2024-09-02 10:43] MED LIST changes: -ACYC400T16 PO; +ASCO500T11 PO; +CALC950T2 PO; -CEPH-510 PO; +LACT10SO3 PO; -LIS20T PO; +LISI20TA56 PO; +POM
--- NOTE | 2024-09-02 11:21 | ED.PDOC ---
GI ASSESSMENT HPI Comments 79 y.o female accompanied by daughter, presents to the ED for a chief complaint of lower abdominal pain associated with constipation x 2 days. Patient reports pain worsened this morning around 0400, daughter gave her an extra dose of Lactulose but had no relief. Patient is on Lactulose due to previous dx history of diverticulitis with constipation. Patient at this time states no pain at rest/wheelchair but with movement or bending, pain presents sharp in nature. Patient denies any nausea, vomiting, fever, chills, back pain, rectal bleeding. Chief Complaint: Constipation Time Seen by MD: 11:05 Primary Care Provider: CLAUDE Reviewed Notes: Nurses Notes, Medications, Allergies Allergies: Coded Allergies: Shellfish Allergy (Verified Allergy, Intermediate, ITCHING , 06/22/24) Home Meds Active Scripts Lactulose (Lactulose) 10 Gm/15 Ml Celena, 20 GM PO DAILY PRN for 30 Days, #1000 ML 0 Refills Prov:ELVIRA BAEZCORWINPERNELL RESIDENT 06/22/24 Reported Medications Ascorbic Acid (VITAMIN C TABLET) 500 Mg Tb, 1 TAB PO DAILY, #30 TAB 3 Refills 06/20/24 Patients Own Medication (PATIENTS OWN MEDICATION) . PTS OWN MED-OBTAIN FROM PT AND SEND TO RX DRUG: FREQ: RX# EXP: DATE DISP: TECH: RPH: 06/20/24 Calcium Citrate (Calcium Citrate) 200 Mg Tab, 400 MG PO, TAB 06/20/24 Lisinopril (Lisinopril) 20 Mg Tab, 20 MG PO for 30 Days, MG 06/20/24 Ascorbic Acid (Vitamin C) 500 Mg Chw, 500 MG PO HS, CHW 10/01/15 Alpha Tocopheryl Acid Succinat (VITAMIN E) 100 Unit Tab, 100 UNIT PO HS, TAB 10/01/15 Calcium Citrate Tetrahydrate (Calcium Citrate) Citrate Pow, 1 TAB PO HS, POW 10/01/15 Biotin (Vitamin H) (Biotin) 1,000 Mcg Tab, 1000 MCG PO DAILY, TAB 10/01/15 Multiple Vitamin (Multivitamins) Cap, 1 CAP PO DAILY, #30 CAP 3 Refills 10/01/15 Ferrous Sulfate (Ferrous Sulfate) 325 Mg Tab, 325 MG PO DAILY, TAB 10/01/15 Cholecalciferol (VITAMIN D-3) 1,000 Unit Tab, 1000 UNIT PO BID, TAB 10/01/15 Cyclosporine (Ophth) (Restasis) 0.05 % Emu, 1 DROP EACHEYE BID, #60 VIAL 3 Refills 10/01/15 Leucovorin Calcium (Leucovorin Calcium) 5 Mg Tab, 5 MG PO QWEEKLY, TAB 10/01/15 Etanercept (ENBREL) 50 Mg/Ml Inj, 50 MG SUBCUT QWEEKLY, #12 SYR 10/01/15 Folic Acid (Folic Acid) 1 Mg Tab, 1000 MCG PO HS 03/31/10 Cevimeline Hydrochloride Hemih (Evoxac) 30 Mg Cap, 30 MG PO BID 03/31/10 Etodolac (Etodolac) 200 Mg Cap, 200 MG PO BID 03/31/10 Information Source: Patient, Relative (daughter ) Mode of Arrival: Ambulatory Timing: Days (2) Duration: Since onset Quality: Aching Vomitus: None Stool: Empty Severity: Moderate Recent: None Recent Hx of: None Pain Location: Suprapubic Modifying Factors: Nothing Associated sign and symptoms: Nausea, Constipation, Abdominal Pain Past Medical History PAST MEDICAL HISTORY: Arthritis, HTN Surgical History: Cholecystectomy, Hysterectomy FORESTRY PILOT History: No Pertinent FORESTRY PILOT History Family History Family History: Reviewed,noncontributory to illness, Unknown Social History Smoker: Non-Smoker Alcohol: Denies ETOH Use Drugs: Denies Drug Use Lives In: Home Constitutional: denies: chills, diaphoresis, fatigue, fever, malaise, sweats, weakness, others EENTM: denies: blurred vision, double vision, ear bleeding, ear discharge, ear drainage, ear pain, ear ringing, eye pain, eye redness, hearing loss, mouth pain, mouth swelling, nasal discharge, nose bleeding, nose congestion, nose pain, photophobia, tearing, throat pain, throat swelling, voice changes, others Respiratory: denies: cough, hemoptysis, orthopnea, SOB at rest, shortness of breath, SOB with excertion, stridor, wheezing, others Cardiovascular: denies: chest pain, dizzy spells, diaphoresis, Dyspnea on exertion, edema, irregular heart beat, left arm pain, lightheadedness, palpitations, PND, syncope, others Gastrointestinal: reports: abdominal pain, constipated; denies: abdomen distended, blood streaked bowels, diarrhea, dysphagia, difficulty swallowing, hematemesis, melena, nausea, poor appetite, poor fluid intake, rectal bleeding, rectal pain, vomiting, others Genitourinary: denies: abnormal vagina bleeding, burning, dyspareunia, dysuria, flank pain, frequency, hematuria, incontinence, pain, , vagina discharge, urgency, others Neurological: denies: dizziness, fainting, headache, left sided numbness, left sided weakness, numbness, paresthesia, pre-existing deficit, right sided numbness, right sided weakness, seizure, speech problems, tingling, tremors, weakness, others Musculoskeletal: denies: back pain, gout, joint pain, joint swelling, muscle pain, muscle stiffness, neck pain, others Integumetry: denies: bruises, change in color, change in hair/nails, dryness, laceration, lesions, lumps, rash, wounds, others Allergic/Immunocompromised: denies: Difficulty Healing, Frequent Infections, Hives, Itching, others Hematologic/Lymphatic: denies: anemia, blood clots, easy bleeding, easy bruising, swollen glands, others Endocrine: denies: excessive hunger, excessive sweating, excessive thirst, excessive urination, flushing, intolerance to cold, intolerance to heat, unexplained weight gain, unexplained weight loss, others Psychiatric: denies: anxiety, bipolar disorder, depression, hopeless, panic disorder, schizophrenia, sleepless, suicidal, others All Other Systems: Reviewed and Negative Physical Exam General Appearance: No Apparent Distress, Normal HEENT: Normal ENT Inspection Neck: Normal Inspection Respiratory: Chest Non-Tender, Lungs Clear, No Accessory Muscle Use, No Respiratory Distress, Normal Breath Sounds Cardiovascular: No Edema, No JVD, No Murmur, No Gallop, Normal Peripheral Pulses, Regular Rate/Rhythm Breast Exam: Deferred Gastrointestinal: Normal Bowel Sounds, Tenderness (mildly on bilateral lower quadrants ) Genitalia: Deferred Pelvic: Deferred Rectal: Deferred Extremities: Normal inspection Neurologic: Alert, stapler machine II-XII nml as Tested, Normal Affect, No Sensory Deficits Cerebellar Function: NOT DONE Reflexes: Normal Skin: Normal Color, Warm Lymphatic: NOT DONE Was a procedure done? Was a procedure done?: No GI differential Dx Differential Diagnosis: Bowel Obstruction, Constipation, Diverticular disease, Esophageal rupture, Esophagitis, Gastritis/PUD, Inflammatory BD X-Ray, Labs, Meds, VS Vital Signs Date Time Temp Pulse Resp B/P (MAP) Pulse Ox O2 Delivery O2 Flow Rate FiO2 09/02/24 14:15 98.1 79 19 158/88 (111) 99 98.1 09/02/24 11:10 18 18 98 Room Air 09/02/24 11:10 98.1 61 18 151/70 (97) 98 98.1 09/02/24 10:55 98.5 64 15 166/85 (112) 98 98.5 Lab Test 09/02/24 11:19 09/02/24 11:08 Range/Units White Blood Count 3.1 L 4.4-10.8 10^3/uL Red Blood Count 3.79 L 4.0-5.20 10^6/uL Hemoglobin 10.8 L 12.2-16.2 g/dL Hematocrit 32.1 L 36.0-46.0 % Mean Corpuscular Volume 84.6 80.0-100.0 fL Mean Corpuscular Hemoglobin 28.5 28.0-32.0 pg Mean Corpuscular Hemoglobin Concent 33.7 32.0-36.0 g/dL Red Cell Distribution Width 16.5 H 11.8-14.3 % Platelet Count 314 140-450 10^3/uL Mean Platelet Volume 6.8 L 6.9-10.8 fL Neutrophils (%) (Auto) 37.0-80.0 % Lymphocytes (%) (Auto) 10.0-50.0 % Monocytes (%) (Auto) 0.0-12.0 % Basophils (%) (Auto) 0.0-2.0 % Neutrophils # (Auto) 1.6-8.6 10 ^3/uL Lymphocytes # (Auto) 0.4-5.4 10 ^3/uL Monocytes # (Auto) 0-1.3 10 ^3/uL Differential Total Cells Counted 100.0 100 Neutrophils % (Manual) 59 37.0-80.0 Band Neutrophils % (Manual) 4 Lymphocytes % (Manual) 22 10.0-50.0 Monocytes % (Manual) 15 H 0-12 Eosinophils % (Manual) 0 0-7 Basophils % (Manual) 0 0.0-2.0 Metamyelocytes % (manual) 0 Myelocytes % (Manual) 0 Promyelocytes % (Manual) 0 Blast Cells % (Manual) 0 Reactive Lymphocytes 0 Platelet Estimate Adequate Sodium Level 126 L 136-145 mmol/L Potassium Level 3.8 3.5-5.1 mmol/L Chloride Level 94 L 98-107 mmol/L Carbon Dioxide Level 23 20-31 mmol/L Anion Gap 9 5-15 Blood Urea Nitrogen 28 H 9-23 mg/dL Creatinine 0.82 0.550-1.02 mg/dL Glomerular Filtration Rate Calc 73 >90 mL/min BUN/Creatinine Ratio 34.1 H 10.0-20.0 Serum Glucose 101 74-106 mg/dL Calcium Level 9.6 8.7-10.4 mg/dL Total Bilirubin 0.4 0.2-1.0 mg/dL Aspartate Amino Transferase (AST) 22 13-40 U/L Alanine Aminotransferase (ALT) 32 7-40 U/L Alkaline Phosphatase 89 46-116 U/L Total Protein 7.6 5.7-8.2 g/dL Albumin 3.6 3.2-4.8 g/dL Lipase 39 12-53 U/L Urine Color Light-yellow Yellow Urine Clarity Clear Clear Urine pH 6.5 5.0-9.0 Urine Specific [place] 1.013 1.001-1.035 Urine Protein Negative Negative Urine Ketones Negative Negative Urine Blood Negative Negative /uL Urine Nitrite Negative Negative Urine Bilirubin 1+ H Negative Urine Urobilinogen Normal Negative mg/dL Urine Leukocyte Esterase Negative Negative /uL Urine RBC 2 0 - 4 /hpf Urine Microscopic WBC < 1 0-5 /HPF Urine Squamous Epithelial Cells Few <5 /hpf Urine Bacteria None seen None Seen /hpf Urine Glucose Normal Normal mg/dL Current Medications Medications (Trade) Dose Ordered Sig/Lilly Route Start Time Stop Time Status Last Admin Sodium Chloride 1,000 ml @ 1,000 mls/hr Q1H ONCE IVB 09/02/24 11:15 09/02/24 12:14 DC 09/02/24 11:26 Time of 1ST Reevaluation: 11:16 Reevaluation 1ST: Unchanged Patient Education/Counseling: Diagnosis, Treatment, Prognosis Family Education/Counseling: Diagnosis, Treatment, Prognosis Departure 1 Departure Time of Disposition: 11:30 Impression: Primary Impression: Ovarian mass Additional Impressions: Perineal hernia in female Hyponatremia Disposition: 01 HOME / SELF CARE / HOMELESS Condition: Stable Discharged With: Self, Relative Critical Care Note Critical Care Time?: No Stability Stability form required: No Heart Score Heart Score: Heart Score Response (Comments) Value History N/A 0 EKG N/A 0 Age N/A 0 Risk Factors N/A 0 Troponin N/A 0 Total 0 I personally scribed for KIMBER LEAVITT MD ([email or web address]) on 09/02/24 at 11:21. Electronically submitted by Charity Patiño ([facility]). KIMBER LEAVITT MD Sep 02, 2024 11:21
[2024-09-02] MEDS: SODIUM CHLORIDE 0.9% 1,000 ML IVB ONE (11:26)
[2024-09-02 11:37] LABS: Hematocrit 32.1 % (36.0-46.0); Hemoglobin 10.8 g/dL (12.2-16.2); Mean Corpuscular Hemoglobin 28.5 pg (28.0-32.0); Mean Corpuscular Hgb Conc. 33.7 g/dL (32.0-36.0); Mean Corpuscular Volume 84.6 fL (80.0-100.0); Platelet Count (auto) 314 10^3/uL (140-450); Red Blood Cells 3.79 10^6/uL (4.0-5.20); Red Cell Distribution Width 16.5 % (11.8-14.3); White Blood Cell 3.1 10^3/uL (4.4-10.8)
[2024-09-02 11:38] LABS: Basophils % (manual) 0 (0.0-2.0); Blast Cells 0; Eosinophils % (manual) 0 (0-7); Metamyelocytes % 0; Myelocytes % 0; Promyelocytes % 0; Reactive Lymphocytes 0
[2024-09-02 11:53] LABS: Alanine Aminotransferase 32 U/L (7-40); Albumin 3.6 g/dL (3.2-4.8); Alkaline Phosphatase 89 U/L (46-116); Anion Gap 9 (5-15); Aspartate Aminotransferase 22 U/L (13-40); BUN/Creatinine Ratio 34.1 (10.0-20.0); Bilirubin, Total 0.4 mg/dL (0.2-1.0); Calcium 9.6 mg/dL (8.7-10.4); Carbon Dioxide 23 mmol/L (20-31); Glucose 101 mg/dL (74-106); Potassium 3.8 mmol/L (3.5-5.1); Total Protein 7.6 g/dL (5.7-8.2)
[2024-09-02 11:54] LABS: Blood Urea Nitrogen 28 mg/dL (9-23); Chloride 94 mmol/L (98-107); Sodium 126 mmol/L (136-145)
[2024-09-02 12:06] LABS: Lipase 39 U/L (12-53)
[2024-09-02 12:08] LABS: Band Neutrophils % (manual) 4; Lymphocytes % (manual) 22 (10.0-50.0); Monocytes % (manual) 15 (0-12)
[2024-09-02 12:09] LABS: Platelet Estimate Adequate
[2024-09-02 12:16] LABS: Urine Bacteria None Seen /hpf (None Seen)
[2024-09-02 12:25] LABS: Urine Blood Negative /uL (Negative); Urine Clarity Clear (Clear); Urine Color Light-Yellow (Yellow); Urine Protein, UAD Negative (Negative); Urine Specific Gravity 1.013 (1.001-1.035); Urine Squamous Epithelial Cell FEW /hpf (<5); Urine Urobilinogen Normal (Negative); Urine WBC < 1 /HPF (0-5); Urine pH 6.5 (5.0-9.0)
[2024-09-02] MEDS: IOHEXOL 300 MG/ML 100ML BOTTLE IJ ONE (13:09)
--- NOTE | 2024-09-02 13:41 | DVH ---
Exam: CT CT AB PEL WITH IV CON ONLY History: LLQ pain, h/o diverticulitis Comparison Study: None available TECHNIQUE: A digital electrical technician instructor image was obtained. During the uneventful, intravenous administration of c ontrast material, multislice data acquisition was obtained through the abdomen and pelvis. The data s et was subsequently reconstructed into axial images. Images reviewed on a wrist examination is an exa mination of axial and multiplanar reformations using a variety of window levels and settings. RADIATION DOSE: DLP 407.77 mGy.cm; CTDI vol 7.97 mGy. Findings: Lungs: The lung bases are clear. Heart: No cardiomegaly or pericardial effusion. Liver: Unremarkable. Gallbladder: Cholecystectomy. Spleen: Unremarkable Pancreas: Unremarkable Adrenals: Unremarkable Kidneys: Left renal cyst. GI tract: Unremarkable : 5.7 x 5.6 cm right adnexal cystic lesion (axial image 63). Hysterectomy. Vasculature: Mild aortoiliac atherosclerosis. Lymphadenopathy: Absent Peritoneum: No ascites Musculoskeletal: Moderate multilevel degenerative changes of the thoracolumbar spine Soft tissues: Small left perineal hernia containing a portion of the rectum (axial image 47). Impression: 1. No acute abdominopelvic abnormalities. 2. No evidence of diverticulosis or colitis. 3. 5.7 cm right adnexal cystic lesion. Correlate with histopathology, if not already performed. 4. Small left perineal hernia containing a portion of the rectum.
[2024-09-02 14:15] VITALS: BP 158/88; PULSE 79; RESP 19; TEMP 98.1; O2SAT 99
== END 2024-09-02 14:17 | disposition home or self-care (01) ==
LOC: ER 10:43
DX: N83.9 Noninflammatory disorder of ovary, fallopian tube and broad ligament, unspecified (principal); K45.8 Other specified abdominal hernia without obstruction or gangrene; E87.1 Hypo-osmolality and hyponatremia; K59.00 Constipation, unspecified; I10 Essential (primary) hypertension; M19.90 Unspecified osteoarthritis, unspecified site; Z90.49 Acquired absence of other specified parts of digestive tract; Z90.710 Acquired absence of both cervix and uterus; Z79.621 Long term (current) use of calcineurin inhibitor; Z79.899 Other long term (current) drug therapy; Z91.013 Allergy to seafood
CPT/HCPCS: 36415; 74177; 80053; 81001; 83690; 85007; 85027; 96360; 99285; J7030; Q9967

== ENCOUNTER 2024-11-21 06:12 | Outpatient (CLI) | payer MEDICARE, OTHER ==
[2024-11-21 07:38] LABS: Alanine Aminotransferase 10 U/L (7-40); Alkaline Phosphatase 113 U/L (46-116); Anion Gap 9 (5-15); BUN/Creatinine Ratio 22.2 (10.0-20.0); Blood Urea Nitrogen 18 mg/dL (9-23); Carbon Dioxide 22 mmol/L (20-31); Chloride 103 mmol/L (98-107); Glucose 95 mg/dL (74-106); Potassium 4.6 mmol/L (3.5-5.1); Triglycerides 87 mg/dL (< 150)
[2024-11-21 07:39] LABS: LDL Cholesterol 74 mg/dL (< 100); Total Protein 7.4 g/dL (5.7-8.2)
[2024-11-21 07:40] LABS: Albumin 3.9 g/dL (3.2-4.8); Aspartate Aminotransferase 20 U/L (<34); Bilirubin, Total 0.3 mg/dL (0.2-1.0); Cholesterol 123 mg/dL (< 200)
[2024-11-21 07:41] LABS: HDL Cholesterol 38 mg/dL (40-59); Sodium 134 mmol/L (136-145)
[2024-11-21 08:13] LABS: Red Blood Cells 3.68 10^6/uL (4.0-5.20)
[2024-11-21 08:16] LABS: Mean Corpuscular Hemoglobin 29.9 pg (28.0-32.0); Mean Corpuscular Hgb Conc. 34.5 g/dL (32.0-36.0); Mean Corpuscular Volume 86.9 fL (80.0-100.0); Platelet Count (auto) 278 10^3/uL (140-450)
[2024-11-21 08:28] LABS: White Blood Cell 1.3 10^3/uL (4.4-10.8)
[2024-11-21 08:29] LABS: Band Neutrophils % (manual) 0; Basophils % (manual) 0 (0.0-2.0); Blast Cells 0; Eosinophils % (manual) 0 (0-7); Metamyelocytes % 0; Myelocytes % 0; Promyelocytes % 0; Reactive Lymphocytes 0
[2024-11-21 08:33] LABS: Lymphocytes % (manual) 45 (10.0-50.0); Monocytes % (manual) 13 (0-12)
[2024-11-21 08:34] LABS: Platelet Estimate Adequate
== END 2024-11-21 17:00 | disposition home or self-care (01) ==
LOC: LAB 06:12
PROVIDERS: ATTEND Nurse Practitioner Family
DX: I12.9 Hypertensive chronic kidney disease with stage 1 through stage 4 chronic kidney disease, or unspecified chronic kidney disease (principal); N18.2 Chronic kidney disease, stage 2 (mild); Z00.00 Encounter for general adult medical examination without abnormal findings; D63.1 Anemia in chronic kidney disease
CPT/HCPCS: 36415; 80053; 80061; 84443; 85007; 85027

== ENCOUNTER 2025-02-21 12:33 | Inpatient (IN) | payer MEDICARE, OTHER ==
[~2025-02-21] VITALS: Ht 160 cm; Wt 65.9 kg
--- NOTE | 2025-02-21 13:09 | ED.PDOC ---
HPI Comments 79 y/o F, with PMHx of arthritis, myodysplasia, and HTN presents to the ED for CC of chest pain. Patient states, she has been experiencing non-radiating left sided chest pain sudden onset, 0600 this morning (02/21/25). Patient relays, pain with inspiration. Patient denies shortness of breath, palpations, numbness, weakness, or dizziness. No other symptoms or modifying factors are present at this time. Chief Complaint: Chest Pain Time Seen by MD: 13:00 Primary Care Provider: CLAUDE Reviewed Notes: Nurses Notes, Medications, Allergies Allergies: Coded Allergies: Shellfish Allergy (Verified Allergy, Intermediate, ITCHING , 06/22/24) Acetaminophen (Verified Allergy, Unknown, 02/21/25) Hydrocodone (Verified Allergy, Unknown, 02/21/25) Home Meds Active Scripts Lactulose (Lactulose) 10 Gm/15 Ml Celena, 20 GM PO DAILY PRN for 30 Days, #1000 ML 0 Refills Prov:SIVA BAEZ RESIDENT 06/22/24 Reported Medications Ascorbic Acid (VITAMIN C TABLET) 500 Mg Tb, 1 TAB PO DAILY, #30 TAB 3 Refills 06/20/24 Patients Own Medication (PATIENTS OWN MEDICATION) . PTS OWN MED-OBTAIN FROM PT AND SEND TO RX DRUG: FREQ: RX# EXP: DATE DISP: TECH: RPH: 06/20/24 Calcium Citrate (Calcium Citrate) 200 Mg Tab, 400 MG PO, TAB 06/20/24 Lisinopril (Lisinopril) 20 Mg Tab, 20 MG PO for 30 Days, MG 06/20/24 Ascorbic Acid (Vitamin C) 500 Mg Chw, 500 MG PO HS, CHW 10/01/15 Alpha Tocopheryl Acid Succinat (VITAMIN E) 100 Unit Tab, 100 UNIT PO HS, TAB 10/01/15 Calcium Citrate Tetrahydrate (Calcium Citrate) Citrate Pow, 1 TAB PO HS, POW 10/01/15 Biotin (Vitamin H) (Biotin) 1,000 Mcg Tab, 1000 MCG PO DAILY, TAB 10/01/15 Multiple Vitamin (Multivitamins) Cap, 1 CAP PO DAILY, #30 CAP 3 Refills 10/01/15 Ferrous Sulfate (Ferrous Sulfate) 325 Mg Tab, 325 MG PO DAILY, TAB 10/01/15 Cholecalciferol (VITAMIN D-3) 1,000 Unit Tab, 1000 UNIT PO BID, TAB 10/01/15 Cyclosporine (Ophth) (Restasis) 0.05 % Emu, 1 DROP EACHEYE BID, #60 VIAL 3 Refills 10/01/15 Leucovorin Calcium (Leucovorin Calcium) 5 Mg Tab, 5 MG PO QWEEKLY, TAB 10/01/15 Etanercept (ENBREL) 50 Mg/Ml Inj, 50 MG SUBCUT QWEEKLY, #12 SYR 10/01/15 Folic Acid (Folic Acid) 1 Mg Tab, 1000 MCG PO HS 03/31/10 Cevimeline Hydrochloride Hemih (Evoxac) 30 Mg Cap, 30 MG PO BID 03/31/10 Etodolac (Etodolac) 200 Mg Cap, 200 MG PO BID 03/31/10 Information Source: Patient Mode of Arrival: Ambulatory Severity: Moderate Timing: Hours Duration: Since onset Prehospital treatment: None Location: Chest (L) Radiation: No Radiation Quality: Burning Onset: At Rest Cardiac Risk Factors: HTN PE Risk Factors: None History of: None Modifying Factors: Nothing Associated Signs and Symptoms: None Past Medical History PAST MEDICAL HISTORY: Arthritis, HTN Surgical History: Cholecystectomy, Hysterectomy LIFTER DRIVER 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: No 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 History Family History Family History: Reviewed,noncontributory to illness, Unknown Social History Smoker: Non-Smoker Alcohol: Denies ETOH Use Drugs: Denies Drug Use Lives In: Home Constitutional: denies: chills, diaphoresis, fatigue, fever, malaise, sweats, weakness, others EENTM: denies: blurred vision, double vision, ear bleeding, ear discharge, ear drainage, ear pain, ear ringing, eye pain, eye redness, hearing loss, mouth pain, mouth swelling, nasal discharge, nose bleeding, nose congestion, nose pain, photophobia, tearing, throat pain, throat swelling, voice changes, others Respiratory: denies: cough, hemoptysis, orthopnea, SOB at rest, shortness of breath, SOB with excertion, stridor, wheezing, others Cardiovascular: reports: chest pain; denies: dizzy spells, diaphoresis, Dyspnea on exertion, edema, irregular heart beat, left arm pain, lightheadedness, palpitations, PND, syncope, others Gastrointestinal: denies: abdomen distended, abdominal pain, blood streaked bowels, constipated, diarrhea, dysphagia, difficulty swallowing, hematemesis, melena, nausea, poor appetite, poor fluid intake, rectal bleeding, rectal pain, vomiting, others Genitourinary: denies: abnormal vagina bleeding, burning, dyspareunia, dysuria, flank pain, frequency, hematuria, incontinence, pain, , vagina discharge, urgency, others Neurological: denies: dizziness, fainting, headache, left sided numbness, left sided weakness, numbness, paresthesia, pre-existing deficit, right sided numbness, right sided weakness, seizure, speech problems, tingling, tremors, weakness, others Musculoskeletal: denies: back pain, gout, joint pain, joint swelling, muscle pain, muscle stiffness, neck pain, others Integumetry: denies: bruises, change in color, change in hair/nails, dryness, laceration, lesions, lumps, rash, wounds, others Allergic/Immunocompromised: denies: Difficulty Healing, Frequent Infections, Hives, Itching, others Hematologic/Lymphatic: denies: anemia, blood clots, easy bleeding, easy bruising, swollen glands, others Endocrine: denies: excessive hunger, excessive sweating, excessive thirst, excessive urination, flushing, intolerance to cold, intolerance to heat, unexplained weight gain, unexplained weight loss, others Psychiatric: denies: anxiety, bipolar disorder, depression, hopeless, panic disorder, schizophrenia, sleepless, suicidal, others All Other Systems: Reviewed and Negative Physical Exam General Appearance: No Apparent Distress, Normal HEENT: Normal ENT Inspection, Pharynx Normal Neck: Full Range of Motion, Non-Tender, Normal, Normal Inspection Respiratory: Chest Non-Tender, Lungs Clear, No Accessory Muscle Use, No Respiratory Distress, Normal Breath Sounds Cardiovascular: No Edema, No Murmur, No Gallop, Normal Peripheral Pulses, Regular Rate/Rhythm Breast Exam: Deferred Gastrointestinal: LUQ, No Organomegaly, No Pulsatile Mass, Normal Bowel Sounds, Other (pain) Genitalia: Deferred Pelvic: Deferred Rectal: Deferred Extremities: No calf tenderness, Normal capillary refill, Normal inspection, Normal range of motion, Non-tender, No pedal edema Musculoskeletal : Apperance: Normal Neurologic: Alert, railroad firer II-XII nml as Tested, No Motor Deficits, Normal Affect, Normal Mood, No Sensory Deficits Cerebellar Function: Normal Reflexes: Normal Skin: Dry, Normal Color, Warm Lymphatic: No Adenopathy Was a procedure done? Was a procedure done?: No CP Differential Dx Differential Diagnosis: Hyperventilation, Hypoxia, MAT, [place], PAC's, PVC's Differential Diagnosis: Angina, Chest Wall Pain, Costochondritis, Esophageal reflux/spasm, Gastritis X-Ray, Labs, Meds, VS Vital Signs Date Time Temp Pulse Resp B/P (MAP) Pulse Ox O2 Delivery O2 Flow Rate FiO2 02/21/25 15:50 78 02/21/25 15:00 98.6 74 18 187/89 (121) 98.6 02/21/25 13:31 75 02/21/25 13:15 74 18 187/96 02/21/25 12:52 98.6 77 18 155/69 99 98.6 02/21/25 12:51 72 Lab Test 02/21/25 14:03 02/21/25 12:58 Range/Units Troponin I High Sensitivity 3 L 5 </=34 ng/L White Blood Count 1.5 *L 4.4-10.8 10^3/uL Red Blood Count 3.61 L 4.0-5.20 10^6/uL Hemoglobin 10.6 L 12.2-16.2 g/dL Hematocrit 31.3 L 36.0-46.0 % Mean Corpuscular Volume 86.7 80.0-100.0 fL Mean Corpuscular Hemoglobin 29.3 28.0-32.0 pg Mean Corpuscular Hemoglobin Concent 33.8 32.0-36.0 g/dL Red Cell Distribution Width 15.6 H 11.8-14.3 % Platelet Count 280 140-450 10^3/uL Mean Platelet Volume 6.7 L 6.9-10.8 fL Neutrophils (%) (Auto) 37.0-80.0 % Lymphocytes (%) (Auto) 10.0-50.0 % Monocytes (%) (Auto) 0.0-12.0 % Basophils (%) (Auto) 0.0-2.0 % Neutrophils # (Auto) 1.6-8.6 10 ^3/uL Lymphocytes # (Auto) 0.4-5.4 10 ^3/uL Monocytes # (Auto) 0-1.3 10 ^3/uL Differential Total Cells Counted 100.0 100 Neutrophils % (Manual) 18 L 37.0-80.0 Band Neutrophils % (Manual) 3 Lymphocytes % (Manual) 45 10.0-50.0 Monocytes % (Manual) 32 H 0-12 Eosinophils % (Manual) 2 0-7 Basophils % (Manual) 0 0.0-2.0 Metamyelocytes % (manual) 0 Myelocytes % (Manual) 0 Promyelocytes % (Manual) 0 Blast Cells % (Manual) 0 Reactive Lymphocytes 0 Platelet Estimate Adequate Anisocytosis (manual) Slight Sodium Level 131 L 136-145 mmol/L Potassium Level 4.4 3.5-5.1 mmol/L Chloride Level 102 98-107 mmol/L Carbon Dioxide Level 20 20-31 mmol/L Anion Gap 9 5-15 Blood Urea Nitrogen 26 H 9-23 mg/dL Creatinine 0.86 0.550-1.02 mg/dL Glomerular Filtration Rate Calc 69 >90 mL/min BUN/Creatinine Ratio 30.2 H 10.0-20.0 Serum Glucose 103 74-106 mg/dL Calcium Level 9.1 8.7-10.4 mg/dL Current Medications Medications (Trade) Dose Ordered Sig/Lilly Route Start Time Stop Time Status Last Admin Sodium Chloride 1,000 ml @ 1,000 mls/hr Q1H ONCE IV 02/21/25 13:15 02/21/25 14:14 DC 02/21/25 13:15 Morphine Sulfate 4 mg ONCE ONCE IV 02/21/25 13:15 02/21/25 13:16 DC 02/21/25 13:15 Ondansetron HCl (Zofran) 4 mg ONCE ONCE IV 02/21/25 13:15 02/21/25 13:16 DC 02/21/25 13:15 [place] [id number] Ph: [phone] DIAGNOSTIC IMAGING Diagnostic Imaging Report : [id number] Signed PATIENT: KRISTAN MARTINEZ ACCT: [id number] UNIT: [id number] : 1945 LOC: ER ROOM / BED: / AGE / SEX: 79 / F ADM STATUS: REG ER SERVICE 1304 ORDERING PHYSICIAN: JAC ALONZO MD PROCEDURE(s): CXRP - CHEST PORTABLE REASON: cp ORDER NUMBER(s): [id number], ACCESSION NUMBER(s): [id number] XY CHEST PORTABLE, HISTORY: cp COMPARISON: XY CHEST TWO VIEWS ROUTINE on DOS: 09/13/24, XY CHEST TWO VIEWS ROUTINE on DOS: 08/30/24, XY CHEST XRAY 1 VIEW on DOS: 06/19/24 XY CHEST TWO VIEWS ROUTINE on DOS: 09/13/24, XY CHEST TWO VIEWS ROUTINE on DOS: 08/30/24, XY CHEST XRAY 1 VIEW on DOS: 06/19/24 TECHNICAL DATA: 1 view of the chest was obtained. FINDINGS: Lines and tubes: None Cardiomediastinal silhouette: normal Pulmonary vasculature: normal Lung expansion: normal Lung airspace: Left mid lung zone consolidation, could be pneumonia. Lung interstitium: normal Pleura: normal Pneumothorax: no Bones: Unremarkable Other: no IMPRESSION: Left mid lung zone consolidation, could be pneumonia. ATED BY: RONNY LEONE MD DICTATED DATE/TIME: 02/21/251331 SIGNED BY: RONNY LEONE MD SIGNED DATE/TIME: 02/21/25 133 CC: Time of 1ST Reevaluation: 13:30 Reevaluation 1ST: Unchanged Patient Education/Counseling: Diagnosis, Treatment Family Education/Counseling: Diagnosis, Treatment SEPSIS Sepsis Screen Date sepsis recognized/suspect: Feb 21, 2025 Time Sepsis recognized/suspect: 4 Recent Procedure: No On Antibiotic Therapy: No Respiratory Rate >20: No Heart Rate >90: No Temp<36 C (96.8 F) or >38.3 C: No SBP <90 or MAP <65 mmHG: No New Acute Mental Status Change: No Is the patient on CPAP, BIPAP,: No Physician Orders Electrocardigram (02/21/25 12:58) Electrocardigram (02/21/25 13:58) Chest Portable (02/21/25 13:04) Vital Signs Date Time Temp Pulse Resp B/P (MAP) Pulse Ox O2 Delivery O2 Flow Rate FiO2 02/21/25 15:50 78 02/21/25 15:00 98.6 74 18 187/89 (121) 98.6 02/21/25 13:31 75 02/21/25 13:15 74 18 187/96 02/21/25 12:52 98.6 77 18 155/69 99 98.6 02/21/25 12:51 72 Laboratory Tests Test 02/21/25 12:58 White Blood Count 1.5 10^3/uL (4.4-10.8) *L Medications Medications Dose Ordered Sig/Lilly Route Start Time Stop Time Status Last Admin Dose Admin Morphine Sulfate 4 mg ONCE ONCE IV 02/21/25 13:15 02/21/25 13:16 DC 02/21/25 13:15 Ondansetron HCl 4 mg ONCE ONCE IV 02/21/25 13:15 02/21/25 13:16 DC 02/21/25 13:15 Sodium Chloride 1,000 ml @ 1,000 mls/hr Q1H ONCE IV 02/21/25 13:15 02/21/25 14:14 DC 02/21/25 13:15 Departure 1 Departure Time of Disposition: 16:52 (Patient presented with chest pain that was concerning for possible STEMI, ACS, PE, Pneumonia, Muscle Strain, COPD, Dissect ion. Data: 1. I ordered and reviewed the result of at least 3 labs including a CBC, BMP, and Troponin. 2. I independently interpreted the following tests: EKG which shows sinus arrhythmia and Chest X-ray which shows benign chest.Risk:This patient has a high risk of morbidity due to further diagnostic testing or treatment and may suffer from an acute cardiac or respiratory disorder. Workup reveals leukopenia and concern for ACS and patient should be admitted for further workup and possible expert consultation. ) Impression: Primary Impression: Acute chest pain Additional Impressions: Leukopenia Qualified Codes: D72.819 - Decreased white blood cell count, unspecified Generalized weakness Disposition: ADMITTED INPATIENT Admit to: Tele Condition: Guarded Critical Care Note Critical Care Time?: Yes Critical care comment: Acute chest pain Authorized and Performed by: Jac Alonzo MD Total critical care time: Approximately 42 minutes Due to a high probability of clinically significant, life threatening deterioration, the patient required my highest level of preparedness to intervene emergently and I personally spent this critical care time directly and personally managing the patient. This critical care time included obtaining a history; examining the patient; pulse oximetry; ordering and review of studies; arranging urgent treatment with development of a management plan; evaluation of patient's response to treatment; frequent reassessment; and, discussions with other providers. This critical care time was performed to assess and manage the high probability of imminent, life-threatening deterioration that could result in multi-organ failure. It was exclusive of separately billable procedures and treating other patients and teaching time. Please see my other sections and the rest of the note for further information on patient assessment and treatment. Stability Stability form required: No Heart Score Heart Score: Heart Score Response (Comments) Value History N/A 0 EKG N/A 0 Age N/A 0 Risk Factors N/A 0 Troponin N/A 0 Total 0 I personally scribed for JAC ALONZO MD ([email or web address]) on 02/21/25 at 13:09. Electronically submitted by Alessandra Montoya ([employer]). I personally scribed for JAC ALONZO MD ([email or web address]) on 02/21/25 at 14:10. Electronically submitted by Alessandra Montoya ([employer]). I personally scribed for JAC ALONZO MD ([email or web address]) on 02/21/25 at 14:13. Electronically submitted by Alessandra Montoya ([employer]). JAC ALONZO MD Feb 21, 2025 13:09
[2025-02-21] MEDS: SODIUM CHLORIDE 0.9% 1,000 ML IV ONE (13:15)
[2025-02-21] MEDS: ONDANSETRON HCL 4 MG/2 ML VIAL IV ONE (13:15)
[2025-02-21] MEDS: MORPHINE SULFATE 4 MG/ML SYR/VIAL IV ONE (13:15)
[2025-02-21 13:18] LABS: Hematocrit 31.3 % (36.0-46.0); Hemoglobin 10.6 g/dL (12.2-16.2); Mean Corpuscular Hemoglobin 29.3 pg (28.0-32.0); Mean Corpuscular Volume 86.7 fL (80.0-100.0)
[2025-02-21 13:24] LABS: Chloride 102 mmol/L (98-107); Potassium 4.4 mmol/L (3.5-5.1)
[2025-02-21 13:25] LABS: Anion Gap 9 (5-15); Calcium 9.1 mg/dL (8.7-10.4); Carbon Dioxide 20 mmol/L (20-31); Sodium 131 mmol/L (136-145)
[2025-02-21 13:30] LABS: BUN/Creatinine Ratio 30.2 (10.0-20.0); Glucose 103 mg/dL (74-106)
[2025-02-21 13:31] LABS: Blood Urea Nitrogen 26 mg/dL (9-23)
[2025-02-21 13:34] LABS: Total Cells Counted 100.0 (100)
--- NOTE | 2025-02-21 13:34 | DVH ---
XY CHEST PORTABLE, HISTORY: cp COMPARISON: XY CHEST TWO VIEWS ROUTINE on DOS: 09/13/24, XY CHEST TWO VIEWS ROUTINE on DOS: 08/30/24, X Y CHEST XRAY 1 VIEW on DOS: 06/19/24 XY CHEST TWO VIEWS ROUTINE on DOS: 09/13/24, XY CHEST TWO VIEWS ROUTINE on DOS: 08/30/24, XY CHEST XRAY 1 VIEW on DOS: 06/19/24 TECHNICAL DATA: 1 view of the chest was obtained. FINDINGS: Lines and tubes: None Cardiomediastinal silhouette: normal Pulmonary vasculature: normal Lung expansion: normal Lung airspace: Left mid lung zone consolidation, could be pneumonia. Lung interstitium: normal Pleura: normal Pneumothorax: no Bones: Unremarkable Other: no IMPRESSION: Left mid lung zone consolidation, could be pneumonia.
[2025-02-21 13:35] LABS: Anisocytosis Slight
--- NOTE | 2025-02-21 14:50 | ECG ---
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
--- NOTE | 2025-02-21 14:50 | ECG ---
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
--- NOTE | 2025-02-21 16:43 | ECG ---
[facility] Test Date: 2025-02-21 Test Time: 15:47:01 Pat Name: KRISTAN MARTINEZ Department: Room: 0203T Gender: F Temperature Regulator Pyrometer: MARVIN : 1945 Requested By: JAC ALONZO Order Number: [id number] Reading MD: Bola Desir Measurements Intervals [place] Rate: 78 P: 78 [place]: 146 QRS: 60 QRSD: 103 T: 61 QT: 376 QTc: 429 Interpretive Statements Sinus rhythm RSR' in V1 or V2, right VCD or RVH Minimal ST elevation, inferior leads Electronically Signed On 02-25-2025 18:37:56 PDT by Bola Desir Please click the below link to view image of tracing.
[2025-02-21 18:32] LABS: Urine Protein, UAD TRACE (Negative)
--- NOTE | 2025-02-21 18:58 | DVHHP2 ---
Admitting Diagnosis: Chest pain History of Present Illness 79 y/o F, with PMHx of arthritis, myodysplasia, and HTN presents to the ED for CC of chest pain. Patient states, she has been experiencing non-radiating left sided chest pain sudden onset, 0600 this morning (02/21/25). Patient relays, pain with inspiration. Patient denies shortness of breath, palpations, numbness, weakness, or dizziness. No other symptoms or modifying factors are present at this time. 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 Allergies: Coded Allergies: Shellfish Allergy (Verified Allergy, Intermediate, ITCHING , 06/22/24) Acetaminophen (Verified Allergy, Unknown, 02/21/25) Hydrocodone (Verified Allergy, Unknown, 02/21/25) Home Meds Active Scripts Lactulose (Lactulose) 10 Gm/15 Ml Celena, 20 GM PO DAILY PRN for 30 Days, #1000 ML 0 Refills Prov:SIVA BAEZ RESIDENT 06/22/24 Reported Medications Ascorbic Acid (VITAMIN C TABLET) 500 Mg Tb, 1 TAB PO DAILY, #30 TAB 3 Refills 06/20/24 Patients Own Medication (PATIENTS OWN MEDICATION) . PTS OWN MED-OBTAIN FROM PT AND SEND TO RX DRUG: FREQ: RX# EXP: DATE DISP: TECH: RPH: 06/20/24 Calcium Citrate (Calcium Citrate) 200 Mg Tab, 400 MG PO, TAB 06/20/24 Lisinopril (Lisinopril) 20 Mg Tab, 20 MG PO for 30 Days, MG 06/20/24 Ascorbic Acid (Vitamin C) 500 Mg Chw, 500 MG PO HS, CHW 10/01/15 Alpha Tocopheryl Acid Succinat (VITAMIN E) 100 Unit Tab, 100 UNIT PO HS, TAB 10/01/15 Calcium Citrate Tetrahydrate (Calcium Citrate) Citrate Pow, 1 TAB PO HS, POW 10/01/15 Biotin (Vitamin H) (Biotin) 1,000 Mcg Tab, 1000 MCG PO DAILY, TAB 10/01/15 Multiple Vitamin (Multivitamins) Cap, 1 CAP PO DAILY, #30 CAP 3 Refills 10/01/15 Ferrous Sulfate (Ferrous Sulfate) 325 Mg Tab, 325 MG PO DAILY, TAB 10/01/15 Cholecalciferol (VITAMIN D-3) 1,000 Unit Tab, 1000 UNIT PO BID, TAB 10/01/15 Cyclosporine (Ophth) (Restasis) 0.05 % Emu, 1 DROP EACHEYE BID, #60 VIAL 3 Refills 10/01/15 Leucovorin Calcium (Leucovorin Calcium) 5 Mg Tab, 5 MG PO QWEEKLY, TAB 10/01/15 Etanercept (ENBREL) 50 Mg/Ml Inj, 50 MG SUBCUT QWEEKLY, #12 SYR 10/01/15 Folic Acid (Folic Acid) 1 Mg Tab, 1000 MCG PO HS 03/31/10 Cevimeline Hydrochloride Hemih (Evoxac) 30 Mg Cap, 30 MG PO BID 03/31/10 Etodolac (Etodolac) 200 Mg Cap, 200 MG PO BID 03/31/10 Current Medications Current Medications Medications (Trade) Dose Ordered Sig/Lilly Route PRN Reason Start Time Stop Time Status Last Admin Ceftriaxone Sodium 50 ml @ 100 mls/hr DAILY@09 IV 02/22/25 09:00 UNV Vital Signs Vital Signs Date Time Temp Pulse Resp B/P (MAP) Pulse Ox O2 Delivery O2 Flow Rate FiO2 02/21/25 17:54 79 16 168/78 (108) 99 02/21/25 15:00 98.6 98.6 Physical Exam Generally-79 years old woman, well nourished well developed. Mild distress HEENT-atraumatic normocephalic Heart-regular rate and rhythm Lungs decreased breath sounds left lung perez Abdomen soft nontender nondistended Musculoskeletal-no edema cyanosis Neuro-AO x3, no focal deficits SEPSIS Sepsis Screen Date sepsis recognized/suspect: Feb 21, 2025 Time Sepsis recognized/suspect: 1254 Recent Procedure: No On Antibiotic Therapy: No Respiratory Rate >20: No Heart Rate >90: No Temp<36 C (96.8 F) or >38.3 C: No SBP <90 or MAP <65 mmHG: No New Acute Mental Status Change: No Is the patient on CPAP, BIPAP,: No Physician Orders Electrocardigram (02/21/25 12:58) Electrocardigram (02/21/25 13:58) Chest Portable (02/21/25 13:04) *Consult / (02/21/25 18:50) Afp Serum Tumor Marker (02/21/25 18:50) Carcinoembryonic Antigen (02/21/25 18:50) Mri Abd & Plevis W/Wo Cont (02/21/25 18:50) Nursing Communication:Document (02/21/25 18:50) Ceftriaxone 1gm/50ml (Rocephin) (02/22/25 09:00) Ascorbic Acid Tablet (Vitamin C Tablet) (02/22/25 10:00) Cholecalciferol Tablet (Vitamin D3 Table (02/21/25 22:00) Ferrous Sulfate Tablet (02/22/25 10:00) Lisinopril Tablet (Zestril Tablet) (02/22/25 10:00) (Nf) Folic Acid (02/21/25 22:00) (Nf) Lactulose (02/22/25 10:00) (Nf) Leucovorin Calcium (02/21/25 19:00) (Nf) Multiple Vitamin (Multivitamins) (02/22/25 10:00) Ammonia (02/21/25 18:50) Admit (02/21/25 18:50) Code Status (02/21/25 18:50) Vital Signs .PER UNIT PROTOCOL (02/21/25 18:50) Review Orders With Adm.Md (02/21/25 18:50) Encourage Activity As Tolerate (02/21/25 18:50) Regular Diet (02/22/25 Breakfast) Sodium Chloride Lock (Saline Lock Ns) (02/21/25 22:00) Docusate Sodium Capsule (Colace Capsule) (02/21/25 19:00) Notify Md Of Changes From Base (02/21/25 18:50) Advance Directive (02/21/25 18:50) Patient Condition (02/21/25 18:50) Allergies (02/21/25 18:50) Ondansetron Hcl (Zofran) (02/21/25 19:00) Comprehensive Metabolic Panel (02/22/25 05:00) Comprehensive Metabolic Panel (02/23/25 05:00) Comprehensive Metabolic Panel (02/24/25 05:00) Comprehensive Metabolic Panel (02/25/25 05:00) Comprehensive Metabolic Panel (02/26/25 05:00) Complete Blood Count (02/22/25 05:00) Complete Blood Count (02/23/25 05:00) Complete Blood Count (02/24/25 05:00) Complete Blood Count (02/25/25 05:00) Complete Blood Count (02/26/25 05:00) Prothrombin Time W/ Inr (02/21/25 18:50) Pharmacy To Reconcile Home Med (02/21/25 18:50) Vital Signs Date Time Temp Pulse Resp B/P (MAP) Pulse Ox O2 Delivery O2 Flow Rate FiO2 02/21/25 17:54 79 16 168/78 (108) 99 02/21/25 15:50 78 02/21/25 15:00 98.6 74 18 187/89 (121) 98.6 02/21/25 13:31 75 02/21/25 13:15 74 18 187/96 02/21/25 12:52 98.6 77 18 155/69 99 98.6 02/21/25 12:51 72 Laboratory Tests Test 02/21/25 12:58 White Blood Count 1.5 10^3/uL (4.4-10.8) *L Medications Medications Dose Ordered Sig/Lilly Route Start Time Stop Time Status Last Admin Dose Admin Morphine Sulfate 4 mg ONCE ONCE IV 02/21/25 13:15 02/21/25 13:16 DC 02/21/25 13:15 Ondansetron HCl 4 mg ONCE ONCE IV 02/21/25 13:15 02/21/25 13:16 DC 02/21/25 13:15 Sodium Chloride 1,000 ml @ 1,000 mls/hr Q1H ONCE IV 02/21/25 13:15 02/21/25 14:14 DC 02/21/25 13:15 Results Labs Test 02/21/25 15:23 02/21/25 14:03 02/21/25 12:58 Range/Units Urine Color Light-yellow Yellow Urine Clarity Clear Clear Urine pH 6.5 5.0-9.0 Urine Specific [place] 1.017 1.001-1.035 Urine Protein Trace H Negative Urine Ketones Negative Negative Urine Blood Negative Negative /uL Urine Nitrite Negative Negative Urine Bilirubin 1+ H Negative Urine Urobilinogen Normal Negative mg/dL Urine Leukocyte Esterase Negative Negative /uL Urine RBC 3 0 - 4 /hpf Urine Microscopic WBC < 1 0-5 /HPF Urine Squamous Epithelial Cells None seen <5 /hpf Urine Bacteria None seen None Seen /hpf Urine Hyaline Casts Few 0 - 2 /lpf Urine Glucose Normal Normal mg/dL Troponin I High Sensitivity 3 L </=34 ng/L White Blood Count 1.5 *L 4.4-10.8 10^3/uL Red Blood Count 3.61 L 4.0-5.20 10^6/uL Hemoglobin 10.6 L 12.2-16.2 g/dL Hematocrit 31.3 L 36.0-46.0 % Mean Corpuscular Volume 86.7 80.0-100.0 fL Mean Corpuscular Hemoglobin 29.3 28.0-32.0 pg Mean Corpuscular Hemoglobin Concent 33.8 32.0-36.0 g/dL Red Cell Distribution Width 15.6 H 11.8-14.3 % Platelet Count 280 140-450 10^3/uL Mean Platelet Volume 6.7 L 6.9-10.8 fL Neutrophils (%) (Auto) 37.0-80.0 % Lymphocytes (%) (Auto) 10.0-50.0 % Monocytes (%) (Auto) 0.0-12.0 % Basophils (%) (Auto) 0.0-2.0 % Neutrophils # (Auto) 1.6-8.6 10 ^3/uL Lymphocytes # (Auto) 0.4-5.4 10 ^3/uL Monocytes # (Auto) 0-1.3 10 ^3/uL Differential Total Cells Counted 100.0 100 Neutrophils % (Manual) 18 L 37.0-80.0 Band Neutrophils % (Manual) 3 Lymphocytes % (Manual) 45 10.0-50.0 Monocytes % (Manual) 32 H 0-12 Eosinophils % (Manual) 2 0-7 Basophils % (Manual) 0 0.0-2.0 Metamyelocytes % (manual) 0 Myelocytes % (Manual) 0 Promyelocytes % (Manual) 0 Blast Cells % (Manual) 0 Reactive Lymphocytes 0 Platelet Estimate Adequate Anisocytosis (manual) Slight Sodium Level 131 L 136-145 mmol/L Potassium Level 4.4 3.5-5.1 mmol/L Chloride Level 102 98-107 mmol/L Carbon Dioxide Level 20 20-31 mmol/L Anion Gap 9 5-15 Blood Urea Nitrogen 26 H 9-23 mg/dL Creatinine 0.86 0.550-1.02 mg/dL Glomerular Filtration Rate Calc 69 >90 mL/min BUN/Creatinine Ratio 30.2 H 10.0-20.0 Serum Glucose 103 74-106 mg/dL Calcium Level 9.1 8.7-10.4 mg/dL Primary Diagnosis Left-sided chest pain likely due to left middle lung pneumonia Plan Low WBC Chest x-ray shows left mid lung pneumonia Check sputum culture Check blood culture Ceftriaxone 1 g q.day, azithromycin 500 mg q.day pharmacy for home meds recon Full code Lovenox for DVT prophylaxis No GI prophylaxis needed Plan discussed with: Patient Problems List: (1) Pneumonia involving left lung Date of Service: Feb 21, 2025 Billing Provider: ROSE TEJEDA MD Common Visit Codes: [id number] INP/OBS CARE (HIGH) ROSE TEJEDA MD Feb 21, 2025 18:57
[2025-02-21 19:00] VITALS: PULSE 92; RESP 22; O2SAT 96
[2025-02-21] MEDS ORDERED: LEUCOVORIN CALCIUM 5 MG PO SCH (19:00)
[2025-02-21] MEDS ORDERED: DOCUSATE SOD 100 MG CAP PO PRN (19:00)
[2025-02-21 19:30] VITALS: PULSE 90; RESP 13; O2SAT 95
--- NOTE | 2025-02-21 19:52 | DVH ---
EXAM: CT CHEST WITHOUT CONTRAST History: assess for lung pathology Comparison Study: None TECHNIQUE: Multidetector CT of the chest was performed. Imaging was performed without IV contrast. Ax ial, coronal, and sagittal multiplanar reformats were obtained from the axial data set by the technol ogist. Radiation Dose : CTDI vol 4.78 mGy, DLP 188.97 mGy*cm. Findings: Lungs: Left upper lobe consolidation. 1.4 cm medial right upper lobe nodular opacity (axial image 22) . Pleura: Unremarkable Heart/Great vessels: No cardiomegaly or pericardial effusion. Moderate to severe coronary atheroscler osis. Mediastinum: Unremarkable Soft tissues/Bones: Mild multilevel degenerative changes of the thoracic spine. Cholecystectomy. Dilated common bile duct. Impression: 1. Left upper lobe consolidation favored an infectious/inflammatory etiology. 2. 1.4 cm medial right upper lobe nodular opacity may reflect infectious process versus pulmonary nod ule. Follow-up to resolution is recommended.
[2025-02-21 19:58] LABS: INR 0.98 (0.9-1.15); Prothrombin Time 10.4 sec (9.3-11.8)
[2025-02-21 22:01] VITALS: BP 152/88; PULSE 152; PULSE 80; RESP 17; RESP 88; TEMP 99.2; O2SAT 99
[2025-02-21] MEDS: SODIUM CHLOR 0.9% PF (SALINE LOCK) 10ML VIAL/SYR IV SCH (22:53)
[2025-02-21] MEDS: FOLIC ACID 1 MG TAB PO SCH (22:53)
[2025-02-21] MEDS: CHOLECALCIFEROL (VITD3) 1,000UNIT=25mCg TAB PO SCH (22:56)
[2025-02-21 23:15] VITALS: PULSE 80; RESP 17; O2SAT 99
[2025-02-22] VITALS (8 sets, daily range): BP systolic 125–179; BP diastolic 79–94; PULSE 66–98; RESP 16–20; TEMP 96.5–99; O2SAT 95–99
[2025-02-22] MEDS: hydrALAZINE HCL 20 MG/ML VL IV PRN (01:32)
[2025-02-22 07:00] LABS: Hemoglobin 10.2 g/dL (12.2-16.2)
[2025-02-22 07:03] LABS: Hematocrit 29.8 % (36.0-46.0); Mean Corpuscular Hemoglobin 29.6 pg (28.0-32.0); Mean Corpuscular Volume 86.1 fL (80.0-100.0)
[2025-02-22 07:18] LABS: Alanine Aminotransferase 16 U/L (7-40); Alkaline Phosphatase 82 U/L (46-116); Anion Gap 9 (5-15); BUN/Creatinine Ratio 21.9 (10.0-20.0); Bilirubin, Total 0.4 mg/dL (0.2-1.0); Blood Urea Nitrogen 14 mg/dL (9-23); Calcium 8.9 mg/dL (8.7-10.4); Chloride 103 mmol/L (98-107); Glucose 97 mg/dL (74-106); Potassium 4.5 mmol/L (3.5-5.1); Total Protein 7.0 g/dL (5.7-8.2)
[2025-02-22 07:20] LABS: Albumin 3.1 g/dL (3.2-4.8); Carbon Dioxide 18 mmol/L (20-31); Sodium 130 mmol/L (136-145)
[2025-02-22 08:27] LABS: Total Cells Counted 100.0 (100)
[2025-02-22] MEDS: LACTULOSE 20Gm/30ML SOLN PO SCH (09:22)
[2025-02-22] MEDS: ASCORBIC ACID 500 MG TAB PO SCH (09:23)
[2025-02-22] MEDS: MULTIPLE VITAMIN TAB PO SCH (09:23)
[2025-02-22] MEDS: LISINOPRIL 20 MG TAB PO SCH (09:23)
[2025-02-22] MEDS: FERROUS SULFATE 325mg EC TAB PO SCH (09:23)
[2025-02-22] MEDS: AZITHROMYCIN 500MG/ 250ML 250 ML IV SCH (10:06)
--- NOTE | 2025-02-22 13:05 | DVHPN2 ---
Reviewed: Care Plan, H&P, Labs, Medications, Previous Orders, Radiology Changes from previous H/P or p: No Changes Objective Vitals Vital Signs Date Time Temp Pulse Resp B/P (MAP) Pulse Ox O2 Delivery O2 Flow Rate FiO2 02/22/25 09:23 139/79 02/22/25 09:00 97.7 75 19 98 97.7 02/22/25 08:00 Room Air* 0 21 Intake/Output Intake and Output 02/22/25 07:00 Intake Total 200 ml Balance 200 ml Intake Oral 200 ml # Voids 1 Medications Current Medications Medications Dose Ordered Sig/Lilly Route Start Time Stop Time Status Last Admin Dose Admin Ceftriaxone Sodium 50 ml @ 100 mls/hr DAILY@09 IV 02/22/25 09:00 02/22/25 09:23 100 MLS/HR Ascorbic Acid 500 mg DAILY PO 02/22/25 10:00 02/22/25 09:23 500 MG Cholecalciferol 1,000 unit BID PO 02/21/25 22:00 02/22/25 09:23 1,000 UNIT Ferrous Sulfate 325 mg DAILY PO 02/22/25 10:00 02/22/25 09:23 325 MG Lisinopril 20 mg DAILY PO 02/22/25 10:00 02/22/25 09:23 20 MG Folic Acid 1 mg HS PO 02/21/25 22:00 02/21/25 22:53 1 MG Lactulose 30 ml DAILY PO 02/22/25 10:00 02/22/25 09:22 30 ML Multivitamins 1 tab DAILY PO 02/22/25 10:00 02/22/25 09:23 1 TAB Sodium Chloride 10 ml Q8HR IV 02/21/25 22:00 02/22/25 05:20 10 ML Docusate Sodium 100 mg BIDPRN PRN PO 02/21/25 19:00 Ondansetron HCl 4 mg Q4HP PRN IV 02/21/25 19:00 Azithromycin 250 ml @ 125 mls/hr DAILY IV 02/22/25 10:00 02/22/25 10:06 125 MLS/HR Hydralazine HCl 10 mg Q6HP PRN IV 02/21/25 19:15 02/22/25 01:32 10 MG Tramadol HCl 50 mg Q6HP PRN PO 02/22/25 10:15 02/22/25 10:52 50 MG Laboratory Results Laboratory Tests 02/22/25 05:03 Chemistry Test 02/22/25 05:03 Albumin 3.1 g/dL (3.2-4.8) L Calcium Level 8.9 mg/dL (8.7-10.4) Total Protein 7.0 g/dL (5.7-8.2) Coagulation Test 02/21/25 19:11 Prothrombin Time 10.4 sec (9.3-11.8) Prothrombin Time INR 0.98 (0.9-1.15) LFT Test 02/22/25 05:03 Alanine Aminotransferase (ALT) 16 U/L (7-40) Alkaline Phosphatase 82 U/L (46-116) Aspartate Amino Transferase (AST) 24 U/L (13-40) Total Bilirubin 0.4 mg/dL (0.2-1.0) Urinalysis Test 02/21/25 15:23 Urine Color Light-yellow (Yellow) Urine Clarity Clear (Clear) Urine pH 6.5 (5.0-9.0) Urine Specific [place] 1.017 (1.001-1.035) Urine Protein Trace (Negative) H Urine Ketones Negative (Negative) Urine Blood Negative /uL (Negative) Urine Nitrite Negative (Negative) Urine Bilirubin 1+ (Negative) H Urine Urobilinogen Normal mg/dL (Negative) Urine Leukocyte Esterase Negative /uL (Negative) Urine RBC 3 /hpf (0 - 4) Urine Microscopic WBC < 1 /HPF (0-5) Urine Squamous Epithelial Cells None seen /hpf (<5) Urine Bacteria None seen /hpf (None Seen) Urine Hyaline Casts Few /lpf (0 - 2) Urine Glucose Normal mg/dL (Normal) Labs and/or images reviewed: Labs reviewed by me, Image(s) reviewed by me Assessment/Plan Assessment/Plan Acute chest pain: Troponin negative, cardiology consult by Dr. Trevino Left upper lobe pneumonia: Rocephin azithromycin albuterol Atrovent Laura test pending Rapid flu test pending History of Myelodysplasia with a leukopenia Arthritis Hypertension Time spent 70 minutes Advanced care planning time 20 minutes Patient is full code Plan discussed with: Patient My Orders Orders - KIYA ADKINS MD Procedure Category Date Status Time Tramadol Hcl (Ultram) PHA 02/22/25 In Process 10:15 Covid19 Antigen [facility] 02/22/25 Logged Rapid Influenza A&B LAB 02/22/25 Logged 12:59 * Cardiology Consult CONS 02/22/25 Verified 12:59 Date of Service: Feb 22, 2025 Billing Provider: KIYA ADKINS MD Common Visit Codes: [id number] CARE 30-74 MIN KIYA ADKINS MD Feb 22, 2025 13:05
[2025-02-22 14:56] LABS: Triglycerides 57.0 mg/dL (< 150)
[2025-02-22 14:57] LABS: Magnesium 1.8 mg/dL (1.6-2.6)
[2025-02-22 14:58] LABS: Cholesterol 90.0 mg/dL (< 200); HDL Cholesterol 32.0 mg/dL (40-59)
--- NOTE | 2025-02-22 15:52 | DVHINCON2 ---
Date Seen: Feb 22, 2025 Referring Physician MD Osbaldo Reason for Consultation Chest pain History of Present Illness This is a 79-year-old female patient who presents to the emergency room with chief complaint of chest pain. The patient is a very poor historian and admits to memory issues. Patient requested that I speak with her daughter "Gely" for further information. Ashley states that the patient lives with her and that the patient began complaining of chest pain on the day of emergency room arrival. Per "Liborio Negron Torres", the patient stated that it felt as though her "left lung was on fire". The patient reports that the pain worsened on inhalation and was only left-sided without radiation. Given the patient's poor memory, she is unable to recall if there were any alleviating factors. The patient's daughter brought her to the emergency room for further evaluation. Initial twelve lead electrocardiogram reveals normal sinus rhythm without any significant ST segment changes. Troponin levels have been negative. Significant past medical history includes hypertension, emphysema, Sjogren's syndrome, myelodysplastic syndrome, rheumatoid arthritis and possible early-onset dementia. The patient's daughter reports that the patient has been suffering from memory issues and is currently seeing a neurologist for further workup. She also mentions that the patient sees in oncologist for her myelodysplastic syndrome. Past Medical History Past medical history reviewed. No other significant than mentioned above. Past Surgical History Hysterectomy Oophorectomy Family History: Patient reports no known family medical history. Family History Family history reviewed. Social History Denies the use of tobacco, alcohol or illicit drugs. Allergies: Coded Allergies: Shellfish Allergy (Verified Allergy, Intermediate, ITCHING , 06/22/24) Acetaminophen (Verified Allergy, Unknown, 02/21/25) Hydrocodone (Verified Allergy, Unknown, 02/21/25) Home Meds Active Scripts Lactulose (Lactulose) 10 Gm/15 Ml Celena, 20 GM PO DAILY PRN for 30 Days, #1000 ML 0 Refills Prov:SIVA BAEZ RESIDENT 06/22/24 Reported Medications Ascorbic Acid (VITAMIN C TABLET) 500 Mg Tb, 1 TAB PO DAILY, #30 TAB 3 Refills 06/20/24 Patients Own Medication (PATIENTS OWN MEDICATION) . PTS OWN MED-OBTAIN FROM PT AND SEND TO RX DRUG: FREQ: RX# EXP: DATE DISP: TECH: [facility]: 06/20/24 Calcium Citrate (Calcium Citrate) 200 Mg Tab, 400 MG PO, TAB 06/20/24 Lisinopril (Lisinopril) 20 Mg Tab, 20 MG PO for 30 Days, MG 06/20/24 Ascorbic Acid (Vitamin C) 500 Mg Chw, 500 MG PO HS, CHW 10/01/15 Alpha Tocopheryl Acid Succinat (VITAMIN E) 100 Unit Tab, 100 UNIT PO HS, TAB 10/01/15 Calcium Citrate Tetrahydrate (Calcium Citrate) Citrate Pow, 1 TAB PO HS, POW 10/01/15 Biotin (Vitamin H) (Biotin) 1,000 Mcg Tab, 1000 MCG PO DAILY, TAB 10/01/15 Multiple Vitamin (Multivitamins) Cap, 1 CAP PO DAILY, #30 CAP 3 Refills 10/01/15 Cholecalciferol (VITAMIN D-3) 1,000 Unit Tab, 1000 UNIT PO BID, TAB 10/01/15 Cyclosporine (Ophth) (Restasis) 0.05 % Emu, 1 DROP EACHEYE BID, #60 VIAL 3 Refills 10/01/15 Leucovorin Calcium (Leucovorin Calcium) 5 Mg Tab, 5 MG PO QWEEKLY, TAB 10/01/15 Etanercept (ENBREL) 50 Mg/Ml Inj, 50 MG SUBCUT QWEEKLY, #12 SYR 10/01/15 Folic Acid (Folic Acid) 1 Mg Tab, 1000 MCG PO HS 03/31/10 Cevimeline Hydrochloride Hemih (Evoxac) 30 Mg Cap, 30 MG PO BID 03/31/10 Etodolac (Etodolac) 200 Mg Cap, 200 MG PO BID 03/31/10 Discontinued Reported Medications Ferrous Sulfate (Ferrous Sulfate) 325 Mg Tab, 325 MG PO DAILY, TAB 10/01/15 Home Meds Home medications reviewed. Current Medications Current Medications Medications (Trade) Dose Ordered Sig/Lilly Route PRN Reason Start Time Stop Time Status Last Admin Ceftriaxone Sodium 50 ml @ 100 mls/hr DAILY@09 IV 02/22/25 09:00 02/22/25 09:23 Ascorbic Acid (Vitamin C Tablet) 500 mg DAILY PO 02/22/25 10:00 02/22/25 09:23 Cholecalciferol (Vitamin D3 Tablet) 1,000 unit BID PO 02/21/25 22:00 02/22/25 09:23 Ferrous Sulfate 325 mg DAILY PO 02/22/25 10:00 02/22/25 09:23 Lisinopril (Zestril Tablet) 20 mg DAILY PO 02/22/25 10:00 02/22/25 09:23 Folic Acid 1 mg HS PO 02/21/25 22:00 02/21/25 22:53 Lactulose 30 ml DAILY PO 02/22/25 10:00 02/22/25 09:22 Patient Own Medication 5 mg QWEEKLY PO 02/21/25 19:00 02/21/25 20:27 DC Multivitamins (Mvi Tab) 1 tab DAILY PO 02/22/25 10:00 02/22/25 09:23 Sodium Chloride (Saline Lock Ns) 10 ml Q8HR IV 02/21/25 22:00 02/22/25 14:01 Docusate Sodium (Colace Capsule) 100 mg BIDPRN PRN PO FOR CONSTIPATION 02/21/25 19:00 Ondansetron HCl (Zofran) 4 mg Q4HP PRN IV NAUSEA / VOMITING 02/21/25 19:00 Azithromycin 250 ml @ 125 mls/hr DAILY IV 02/22/25 10:00 02/22/25 10:06 Hydralazine HCl (Apresoline Injection) 10 mg Q6HP PRN IV SBP>150 02/21/25 19:15 02/22/25 01:32 Tramadol HCl (Ultram) 50 mg Q6HP PRN PO MODERATE PAIN (4-6 PAIN SCALE) 02/22/25 10:15 02/22/25 10:52 Review of Systems Constitutional: No symptom reported Ears, Nose, & Throat: No symptom reported Eyes: No symptom reported Neurological: No symptoms reported Pulmonary/Respiratory: No symptoms reported Cardiovascular: Chest pain Gastrointestinal: No symptom reported Genitourinary: No symptom reported Musculoskeletal: No symptom reported Skin: No symptom reported Psychiatric: No symptom reported Endocrine: No symptom reported Hematologic/Lymphatic: No symptom reported Vital Signs Vital Signs Date Time Temp Pulse Resp B/P (MAP) Pulse Ox O2 Delivery O2 Flow Rate FiO2 02/22/25 13:00 97.6 71 20 146/81 (102) 97 97.6 02/22/25 08:00 Room Air* 0 21 Physical Exam General Appearance: Cooperative. Well-developed. Well-nourished. No acute distress. Pulmonary/Respiratory: Diminished bilateral lower lobes Cardiovascular/Chest: Regular rate and rhythm. Peripheral Pulses: 2+ Radial (R). 2+ Radial (L). 2+ Pedal (R). 2+ Pedal (L) Abdominal Exam: Normal bowel sounds. Ankle Exam: Nonpitting bilateral ankle edema Lower extremities: Negative lower extremity edema Neuro/Mental Status: A/OX3, coherent. Thoughts/Psych: Normal thought pattern. Appropriate mood and affect. Good judgment and insight. Appearance: No acute distress. Skin Exam: Normal inspection. Normal color. Warm and dry. Labs/Diagnostic Data Labs Test 02/22/25 05:03 02/21/25 19:11 02/21/25 15:23 02/21/25 14:03 Range/Units White Blood Count 1.3 *L 4.4-10.8 10^3/uL Red Blood Count 3.46 L 4.0-5.20 10^6/uL Hemoglobin 10.2 L 12.2-16.2 g/dL Hematocrit 29.8 L 36.0-46.0 % Mean Corpuscular Volume 86.1 80.0-100.0 fL Mean Corpuscular Hemoglobin 29.6 28.0-32.0 pg Mean Corpuscular Hemoglobin Concent 34.4 32.0-36.0 g/dL Red Cell Distribution Width 15.7 H 11.8-14.3 % Platelet Count 297 140-450 10^3/uL Mean Platelet Volume 7.1 6.9-10.8 fL Neutrophils (%) (Auto) 37.0-80.0 % Lymphocytes (%) (Auto) 10.0-50.0 % Monocytes (%) (Auto) 0.0-12.0 % Basophils (%) (Auto) 0.0-2.0 % Neutrophils # (Auto) 1.6-8.6 10 ^3/uL Lymphocytes # (Auto) 0.4-5.4 10 ^3/uL Monocytes # (Auto) 0-1.3 10 ^3/uL Differential Total Cells Counted 100.0 100 Neutrophils % (Manual) 23 L 37.0-80.0 Band Neutrophils % (Manual) 7 Lymphocytes % (Manual) 58 H 10.0-50.0 Monocytes % (Manual) 11 0-12 Eosinophils % (Manual) 1 0-7 Basophils % (Manual) 0 0.0-2.0 Metamyelocytes % (manual) 0 Myelocytes % (Manual) 0 Promyelocytes % (Manual) 0 Blast Cells % (Manual) 0 Reactive Lymphocytes 0 Platelet Estimate Adequate Sodium Level 130 L 136-145 mmol/L Potassium Level 4.5 3.5-5.1 mmol/L Chloride Level 103 98-107 mmol/L Carbon Dioxide Level 18 L 20-31 mmol/L Anion Gap 9 5-15 Blood Urea Nitrogen 14 # 9-23 mg/dL Creatinine 0.64 0.550-1.02 mg/dL Glomerular Filtration Rate Calc 90 >90 mL/min BUN/Creatinine Ratio 21.9 H 10.0-20.0 Serum Glucose 97 74-106 mg/dL Hemoglobin A1c 5.5 <5.7 % A1C Calcium Level 8.9 8.7-10.4 mg/dL Magnesium Level 1.8 1.6-2.6 mg/dL Total Bilirubin 0.4 0.2-1.0 mg/dL Aspartate Amino Transferase (AST) 24 13-40 U/L Alanine Aminotransferase (ALT) 16 7-40 U/L Alkaline Phosphatase 82 46-116 U/L Total Protein 7.0 5.7-8.2 g/dL Albumin 3.1 L 3.2-4.8 g/dL Triglycerides Level 57 < 150 mg/dL Cholesterol Level 90 < 200 mg/dL LDL Cholesterol 52 < 100 mg/dL HDL Cholesterol 32 L 40-59 mg/dL Thyroid Stimulating Hormone (TSH) 1.18 0.55-4.78 uIU/mL Prothrombin Time 10.4 9.3-11.8 sec Prothrombin Time INR 0.98 0.9-1.15 Urine Color Light-yellow Yellow Urine Clarity Clear Clear Urine pH 6.5 5.0-9.0 Urine Specific [place] 1.017 1.001-1.035 Urine Protein Trace H Negative Urine Ketones Negative Negative Urine Blood Negative Negative /uL Urine Nitrite Negative Negative Urine Bilirubin 1+ H Negative Urine Urobilinogen Normal Negative mg/dL Urine Leukocyte Esterase Negative Negative /uL Urine RBC 3 0 - 4 /hpf Urine Microscopic WBC < 1 0-5 /HPF Urine Squamous Epithelial Cells None seen <5 /hpf Urine Bacteria None seen None Seen /hpf Urine Hyaline Casts Few 0 - 2 /lpf Urine Glucose Normal Normal mg/dL Troponin I High Sensitivity 3 L </=34 ng/L Test 02/21/25 12:58 Range/Units Anisocytosis (manual) Slight Carcinoembryonic Antigen 1.64 <=5.0 ng/mL Assessment Chest pain, likely pleuritic Rule out structural heart disease Hypertension Pneumonia Emphysema Myelodysplastic syndrome with associated leukopenia Sjogren's syndrome Rheumatoid arthritis Possible early-onset dementia Plan/Recommendation We will continue with the following plan/recommendations (Dr. Trevino): We will proceed with obtaining a transthoracic echocardiogram to evaluate cardiac function. Given patient's clinical presentation, negative troponin le dimitri, low HEART score (3 points), and twelve lead electrocardiogram, doubt ACS. The patient presents with left-sided pneumonia. Antibiotics per primary care team. Had a long discussion with the patient's daughter, Gely, regarding cardiology plan of care. Per patient's daughter, "I want to focus on the pneumonia for now". The patient may have an outpatient stress test if deemed necessary. Further cardiology inpatient workup per transthoracic echocardiogram results. In the meantime, upgrade to telemetry and monitor for any ECG changes. Thank you for allowing us to care for this patient. Please call with any questions or concerns. Critical care time spent: 44 minutes This medical document was created using an electronic medical record system with voice recognition software and computerized dictation system. Although this document has been carefully reviewed, there might still be some phonetic and typographical errors. Occasional wrong-word or ``sound-alike substitutions may have occurred due to the inherent limitations of voice recognition software. These areas are purely typographical due to imperfections of the software programs and do not reflect any compromise in the patient's medical care. Please read the chart carefully and recognize, using context, where these substitutions have occurred. Plan discussed with: Patient NYHA Physical activity limitations: NA Date of Service: Feb 22, 2025 Billing Provider: OLLIE HOSKINS Cardiology Common Codes: [id number] INP/OBS CARE (High) Cardiology Consultation Codes: [id number] CONSULT <45MIN OLLIE HOSKINS Feb 22, 2025 15:52
[2025-02-22 17:16] LABS: COVID19 ANTIGEN SOFIA FIA NEGATIVE (NEGATIVE)
[2025-02-22] MEDS: ONDANSETRON HCL 4 MG/2 ML VIAL IV PRN (20:14)
--- NOTE | 2025-02-22 21:52 | DVHSR ---
APPROVED REPORT EXAM: Two-dimensional and M-mode echocardiogram with Doppler and color Doppler. INDICATION Evaluate cardiac function RISK FACTORS Height: 5'3", Weight: 145 DIMENSIONS LVDd4.6 (3.8-5.7cm)LA (2D)3.8 (1.9-4.0cm)Aortic Root (2.0-3.7cm) LVDs3.2 (2.5-4.0cm)LA (MM) (1.9-4.0cm)Aortic Cusp Exc (1.5-2.0cm) EF (%) 58.0 (55-70%)Rt. Atrium3.4 (1.9-4.0cm)Asc. Aorta cm IVSd0.9 (0.7-1.1cm)RV (D)2.9 (1.8-2.4cm) Mitral Valve MitralMitral Stenosis E wave0.65m/sMV Mean GR.mmHg A wave0.80m/sMV Peak GR.mmHg E/A ratio0.82D MVAcm2 DECEL [id number] 1/2 Timems Aortic Valve Aortic ValveAortic Stenosis V11.22m/Ernesto Mean GR.5mmHg V21.50m/Ernesto Peak GR.9mmHg AI P 1/2 Gjxx484.66ms Tricuspid Valve TR Velocity2.66m/s [id number] Other Information Quality : Technically LimitedRhythm : Technically limited study due to patient position. Conclusion MILD LVH AND MILD LV DIASTOLIC DYSFUNCTION LV EF IS 65% AORTIC SCLEROSIS MODERATE DEGREE AORTIC REGURGITATION NORMAL MV,TV AND PV NO EFFUSION
--- NOTE | 2025-02-22 22:46 | DVHINCON2 ---
Date Seen: Feb 22, 2025 Referring Physician MD Osbaldo Reason for Consultation Chest pain History of Present Illness This is a 79-year-old female with a past medical history includes hypertension, emphysema, Sjogren's syndrome, myelodysplastic syndrome, rheumatoid arthritis and possible early-onset dementia who presents to the ED with a complaint of chest pain. The patient is a very poor historian and admits to memory issues. Patient requested that we speak with her daughter "Gely" for further information. Ashley states that the patient lives with her and that the patient began complaining of chest pain on the day of emergency room arrival. Per "Gely", the patient stated that it felt as though her "left lung was on fire". The patient reports that the pain worsened on inhalation and was only left-sided without radiation. Given the patient's poor memory, she is unable to recall if there were any alleviating factors. The patient's daughter brought her to the emergency room for further evaluation. Initial twelve lead electrocardiogram reveals normal sinus rhythm without any significant ST segment changes. Troponin levels have been negative. The patient's daughter reports that the patient has been suffering from memory issues and is currently seeing a neurologist for further workup. She also mentions that the patient sees in oncologist for her myelodysplastic syndrome. Chest x-ray showed left mid lung zone consolidation, could be pneumonia. Patient was admitted to the hospital. I am asked to consult on this patient. Past Medical History Past medical history reviewed. No other significant than mentioned above. Past Surgical History Hysterectomy Oophorectomy Family History: Patient reports no known family medical history. Allergies: Coded Allergies: Shellfish Allergy (Verified Allergy, Intermediate, ITCHING , 06/22/24) Acetaminophen (Verified Allergy, Unknown, 02/21/25) Hydrocodone (Verified Allergy, Unknown, 02/21/25) Home Meds Active Scripts Lactulose (Lactulose) 10 Gm/15 Ml Celena, 20 GM PO DAILY PRN for 30 Days, #1000 ML 0 Refills Prov:SIVA BAEZ RESIDENT 06/22/24 Reported Medications Ascorbic Acid (VITAMIN C TABLET) 500 Mg Tb, 1 TAB PO DAILY, #30 TAB 3 Refills 06/20/24 Patients Own Medication (PATIENTS OWN MEDICATION) . PTS OWN MED-OBTAIN FROM PT AND SEND TO RX DRUG: FREQ: RX# EXP: DATE DISP: TECH: [facility]: 06/20/24 Calcium Citrate (Calcium Citrate) 200 Mg Tab, 400 MG PO, TAB 06/20/24 Lisinopril (Lisinopril) 20 Mg Tab, 20 MG PO for 30 Days, MG 06/20/24 Ascorbic Acid (Vitamin C) 500 Mg Chw, 500 MG PO HS, CHW 10/01/15 Alpha Tocopheryl Acid Succinat (VITAMIN E) 100 Unit Tab, 100 UNIT PO HS, TAB 10/01/15 Calcium Citrate Tetrahydrate (Calcium Citrate) Citrate Pow, 1 TAB PO HS, POW 10/01/15 Biotin (Vitamin H) (Biotin) 1,000 Mcg Tab, 1000 MCG PO DAILY, TAB 10/01/15 Multiple Vitamin (Multivitamins) Cap, 1 CAP PO DAILY, #30 CAP 3 Refills 10/01/15 Cholecalciferol (VITAMIN D-3) 1,000 Unit Tab, 1000 UNIT PO BID, TAB 10/01/15 Cyclosporine (Ophth) (Restasis) 0.05 % Emu, 1 DROP EACHEYE BID, #60 VIAL 3 Refills 10/01/15 Leucovorin Calcium (Leucovorin Calcium) 5 Mg Tab, 5 MG PO QWEEKLY, TAB 10/01/15 Etanercept (ENBREL) 50 Mg/Ml Inj, 50 MG SUBCUT QWEEKLY, #12 SYR 10/01/15 Folic Acid (Folic Acid) 1 Mg Tab, 1000 MCG PO HS 03/31/10 Cevimeline Hydrochloride Hemih (Evoxac) 30 Mg Cap, 30 MG PO BID 03/31/10 Etodolac (Etodolac) 200 Mg Cap, 200 MG PO BID 03/31/10 Discontinued Reported Medications Ferrous Sulfate (Ferrous Sulfate) 325 Mg Tab, 325 MG PO DAILY, TAB 10/01/15 Current Medications Current Medications Medications (Trade) Dose Ordered Sig/Lilly Route PRN Reason Start Time Stop Time Status Last Admin Ceftriaxone Sodium 50 ml @ 100 mls/hr DAILY@ IV 02/22/25 09:00 02/22/25 09:23 Ascorbic Acid (Vitamin C Tablet) 500 mg DAILY PO 02/22/25 10:00 02/22/25 09:23 Cholecalciferol (Vitamin D3 Tablet) 1,000 unit BID PO 02/21/25 22:00 02/22/25 09:23 Ferrous Sulfate 325 mg DAILY PO 02/22/25 10:00 02/22/25 09:23 Lisinopril (Zestril Tablet) 20 mg DAILY PO 02/22/25 10:00 02/22/25 09:23 Folic Acid 1 mg HS PO 02/21/25 22:00 02/21/25 22:53 Lactulose 30 ml DAILY PO 02/22/25 10:00 02/22/25 09:22 Patient Own Medication 5 mg QWEEKLY PO 02/21/25 19:00 02/21/25 20:27 DC Multivitamins (Mvi Tab) 1 tab DAILY PO 02/22/25 10:00 02/22/25 09:23 Sodium Chloride (Saline Lock Ns) 10 ml Q8HR IV 02/21/25 22:00 02/22/25 14:01 Docusate Sodium (Colace Capsule) 100 mg BIDPRN PRN PO FOR CONSTIPATION 02/21/25 19:00 Ondansetron HCl (Zofran) 4 mg Q4HP PRN IV NAUSEA / VOMITING 02/21/25 19:00 Azithromycin 250 ml @ 125 mls/hr DAILY IV 02/22/25 10:00 02/22/25 10:06 Hydralazine HCl (Apresoline Injection) 10 mg Q6HP PRN IV SBP>150 02/21/25 19:15 02/22/25 01:32 Tramadol HCl (Ultram) 50 mg Q6HP PRN PO MODERATE PAIN (4-6 PAIN SCALE) 02/22/25 10:15 02/22/25 10:52 Review of Systems Constitutional: No symptom reported Ears, Nose, & Throat: No symptom reported Eyes: No symptom reported Neurological: No symptoms reported Pulmonary/Respiratory: No symptoms reported Cardiovascular: Chest pain Gastrointestinal: No symptom reported Genitourinary: No symptom reported Musculoskeletal: No symptom reported Skin: No symptom reported Psychiatric: No symptom reported Endocrine: No symptom reported Hematologic/Lymphatic: No symptom reported Vital Signs Vital Signs Date Time Temp Pulse Resp B/P (MAP) Pulse Ox O2 Delivery O2 Flow Rate FiO2 02/22/25 13:00 97.6 71 20 146/81 (102) 97 97.6 02/22/25 08:00 Room Air* 0 21 Physical Exam GENERAL: Alert and oriented x 3. No acute distress. EYES: PERRL, EOMI. Anicteric. HENT: Moist mucous membranes. LUNGS: Decreased breath sounds. CARDIOVASCULAR: Regular rate and rhythm. ABDOMEN: Soft, nontender and nondistended. EXTREMITIES: No edema. NEUROLOGIC: No focal neurological deficits. SKIN: Warm, dry. Labs/Diagnostic Data Labs Test 02/22/25 05:03 02/21/25 19:11 02/21/25 15:23 02/21/25 14:03 Range/Units White Blood Count 1.3 *L 4.4-10.8 10^3/uL Red Blood Count 3.46 L 4.0-5.20 10^6/uL Hemoglobin 10.2 L 12.2-16.2 g/dL Hematocrit 29.8 L 36.0-46.0 % Mean Corpuscular Volume 86.1 80.0-100.0 fL Mean Corpuscular Hemoglobin 29.6 28.0-32.0 pg Mean Corpuscular Hemoglobin Concent 34.4 32.0-36.0 g/dL Red Cell Distribution Width 15.7 H 11.8-14.3 % Platelet Count 297 140-450 10^3/uL Mean Platelet Volume 7.1 6.9-10.8 fL Neutrophils (%) (Auto) 37.0-80.0 % Lymphocytes (%) (Auto) 10.0-50.0 % Monocytes (%) (Auto) 0.0-12.0 % Basophils (%) (Auto) 0.0-2.0 % Neutrophils # (Auto) 1.6-8.6 10 ^3/uL Lymphocytes # (Auto) 0.4-5.4 10 ^3/uL Monocytes # (Auto) 0-1.3 10 ^3/uL Differential Total Cells Counted 100.0 100 Neutrophils % (Manual) 23 L 37.0-80.0 Band Neutrophils % (Manual) 7 Lymphocytes % (Manual) 58 H 10.0-50.0 Monocytes % (Manual) 11 0-12 Eosinophils % (Manual) 1 0-7 Basophils % (Manual) 0 0.0-2.0 Metamyelocytes % (manual) 0 Myelocytes % (Manual) 0 Promyelocytes % (Manual) 0 Blast Cells % (Manual) 0 Reactive Lymphocytes 0 Platelet Estimate Adequate Sodium Level 130 L 136-145 mmol/L Potassium Level 4.5 3.5-5.1 mmol/L Chloride Level 103 98-107 mmol/L Carbon Dioxide Level 18 L 20-31 mmol/L Anion Gap 9 5-15 Blood Urea Nitrogen 14 # 9-23 mg/dL Creatinine 0.64 0.550-1.02 mg/dL Glomerular Filtration Rate Calc 90 >90 mL/min BUN/Creatinine Ratio 21.9 H 10.0-20.0 Serum Glucose 97 74-106 mg/dL Hemoglobin A1c 5.5 <5.7 % A1C Calcium Level 8.9 8.7-10.4 mg/dL Magnesium Level 1.8 1.6-2.6 mg/dL Total Bilirubin 0.4 0.2-1.0 mg/dL Aspartate Amino Transferase (AST) 24 13-40 U/L Alanine Aminotransferase (ALT) 16 7-40 U/L Alkaline Phosphatase 82 46-116 U/L Total Protein 7.0 5.7-8.2 g/dL Albumin 3.1 L 3.2-4.8 g/dL Triglycerides Level 57 < 150 mg/dL Cholesterol Level 90 < 200 mg/dL LDL Cholesterol 52 < 100 mg/dL HDL Cholesterol 32 L 40-59 mg/dL Thyroid Stimulating Hormone (TSH) 1.18 0.55-4.78 uIU/mL Prothrombin Time 10.4 9.3-11.8 sec Prothrombin Time INR 0.98 0.9-1.15 Urine Color Light-yellow Yellow Urine Clarity Clear Clear Urine pH 6.5 5.0-9.0 Urine Specific [place] 1.017 1.001-1.035 Urine Protein Trace H Negative Urine Ketones Negative Negative Urine Blood Negative Negative /uL Urine Nitrite Negative Negative Urine Bilirubin 1+ H Negative Urine Urobilinogen Normal Negative mg/dL Urine Leukocyte Esterase Negative Negative /uL Urine RBC 3 0 - 4 /hpf Urine Microscopic WBC < 1 0-5 /HPF Urine Squamous Epithelial Cells None seen <5 /hpf Urine Bacteria None seen None Seen /hpf Urine Hyaline Casts Few 0 - 2 /lpf Urine Glucose Normal Normal mg/dL Troponin I High Sensitivity 3 L </=34 ng/L Test 02/21/25 12:58 Range/Units Anisocytosis (manual) Slight Carcinoembryonic Antigen 1.64 <=5.0 ng/mL Assessment Chest pain, likely pleuritic. Rule out structural heart disease. Hypertension. Pneumonia. Emphysema. Myelodysplastic syndrome with associated leukopenia. Sjgren's syndrome. Rheumatoid arthritis. Possible early-onset dementia. Plan/Recommendation I agree with your ongoing assessment and care of plan. Patient has been seen by Arcelia May NP on my behalf, her and I discussed the plan with the patient. We will proceed with obtaining a transthoracic echocardiogram to evaluate cardiac function. Given patient's clinical presentation, negative troponin level, low HEART score (3 points), and twelve lead electrocardiogram, doubt ACS. \\The patient presents with left-sided pneumonia. Antibiotics per primary care team. Had a long discussion with the patient's daughter, Gely, regarding cardiology plan of care. Per patient's daughter, "I want to focus on the pneumonia for now". The patient may have an outpatient stress test if deemed necessary. Further cardiology inpatient workup per transthoracic echocardiogram results. In the meantime, upgrade to telemetry and monitor for any ECG changes. Additional plan as per the hospital course. Plan discussed with: Patient NYHA Physical activity limitations: NA Date of Service: Feb 22, 2025 Billing Provider: HELENA WOODALL MD Cardiology Common Codes: [id number] INP/OBS CARE (High) Cardiology Consultation Codes: [id number] CONSULT <45MIN HELENA WOODALL MD Feb 22, 2025 16:05
[2025-02-23] VITALS (9 sets, daily range): BP systolic 94–157; BP diastolic 61–88; PULSE 65–83; RESP 15–68; TEMP 97.1–98.6; O2SAT 95–97
[2025-02-23 06:17] LABS: Alanine Aminotransferase 16 U/L (7-40); Alkaline Phosphatase 81 U/L (46-116); Anion Gap 10 (5-15); BUN/Creatinine Ratio 19.6 (10.0-20.0); Blood Urea Nitrogen 11 mg/dL (9-23); Calcium 9.0 mg/dL (8.7-10.4); Glucose 100 mg/dL (74-106); Potassium 4.6 mmol/L (3.5-5.1); Total Protein 7.0 g/dL (5.7-8.2)
[2025-02-23 06:18] LABS: Bilirubin, Total 0.3 mg/dL (0.2-1.0)
[2025-02-23 06:26] LABS: Albumin 3.0 g/dL (3.2-4.8); Carbon Dioxide 17 mmol/L (20-31); Chloride 98 mmol/L (98-107); Sodium 125 mmol/L (136-145)
[2025-02-23] MEDS: SODIUM CHLORIDE 0.9% 1,000 ML IV SCH ×2 (08:15→13:15)
--- NOTE | 2025-02-23 08:23 | DVHPN2 ---
Reviewed: Care Plan, H&P, Labs, Medications, Previous Orders, Radiology Changes from previous H/P or p: No Changes Objective Vitals Vital Signs Date Time Temp Pulse Resp B/P (MAP) Pulse Ox O2 Delivery O2 Flow Rate FiO2 02/23/25 06:09 76 16 114/66 (82) 02/23/25 05:00 98.6 96 98.6 02/22/25 20:00 Room Air* 0 21 Intake/Output Intake and Output 02/23/25 07:00 Intake Total 1000 ml Balance 1000 ml Intake Oral 1000 ml # Voids 4 Medications Current Medications Medications Dose Ordered Sig/Lilly Route Start Time Stop Time Status Last Admin Dose Admin Ceftriaxone Sodium 50 ml @ 100 mls/hr DAILY@09 IV 02/22/25 09:00 02/22/25 09:23 100 MLS/HR Ascorbic Acid 500 mg DAILY PO 02/22/25 10:00 02/22/25 09:23 500 MG Cholecalciferol 1,000 unit BID PO 02/21/25 22:00 02/22/25 21:20 1,000 UNIT Ferrous Sulfate 325 mg DAILY PO 02/22/25 10:00 02/22/25 09:23 325 MG Lisinopril 20 mg DAILY PO 02/22/25 10:00 02/22/25 09:23 20 MG Folic Acid 1 mg HS PO 02/21/25 22:00 02/22/25 21:20 1 MG Lactulose 30 ml DAILY PO 02/22/25 10:00 02/22/25 09:22 30 ML Multivitamins 1 tab DAILY PO 02/22/25 10:00 02/22/25 09:23 1 TAB Sodium Chloride 10 ml Q8HR IV 02/21/25 22:00 02/23/25 05:42 10 ML Docusate Sodium 100 mg BIDPRN PRN PO 02/21/25 19:00 Ondansetron HCl 4 mg Q4HP PRN IV 02/21/25 19:00 02/22/25 20:14 4 MG Azithromycin 250 ml @ 125 mls/hr DAILY IV 02/22/25 10:00 02/22/25 10:06 125 MLS/HR Hydralazine HCl 10 mg Q6HP PRN IV 02/21/25 19:15 02/23/25 05:43 10 MG Tramadol HCl 50 mg Q6HP PRN PO 02/22/25 10:15 02/22/25 10:52 50 MG Laboratory Results Laboratory Tests 02/23/25 04:47 Chemistry Test 02/23/25 04:47 Albumin 3.0 g/dL (3.2-4.8) L Calcium Level 9.0 mg/dL (8.7-10.4) Total Protein 7.0 g/dL (5.7-8.2) LFT Test 02/23/25 04:47 Alanine Aminotransferase (ALT) 16 U/L (7-40) Alkaline Phosphatase 81 U/L (46-116) Aspartate Amino Transferase (AST) 25 U/L (13-40) Total Bilirubin 0.3 mg/dL (0.2-1.0) Urinalysis Test 02/21/25 15:23 Urine Color Light-yellow (Yellow) Urine Clarity Clear (Clear) Urine pH 6.5 (5.0-9.0) Urine Specific [place] 1.017 (1.001-1.035) Urine Protein Trace (Negative) H Urine Ketones Negative (Negative) Urine Blood Negative /uL (Negative) Urine Nitrite Negative (Negative) Urine Bilirubin 1+ (Negative) H Urine Urobilinogen Normal mg/dL (Negative) Urine Leukocyte Esterase Negative /uL (Negative) Urine RBC 3 /hpf (0 - 4) Urine Microscopic WBC < 1 /HPF (0-5) Urine Squamous Epithelial Cells None seen /hpf (<5) Urine Bacteria None seen /hpf (None Seen) Urine Hyaline Casts Few /lpf (0 - 2) Urine Glucose Normal mg/dL (Normal) Microbiology Microbiology Date/Time Source Procedure Growth Status 02/21/25 19:11 Blood Blood Culture - Preliminary NO GROWTH AFTER 24 HOURS OF INCUBATION. Resulted Labs and/or images reviewed: Labs reviewed by me, Image(s) reviewed by me Assessment/Plan Assessment/Plan Acute chest pain: Noncardiac etiology Troponin negative, cardiology consult by Dr. Trevino appreciated, echocardiogram 65 percent ejection fraction, no further cardiac workup Left upper lobe pneumonia: Rocephin azithromycin albuterol Atrovent Laura test negative Type B flu positive: Tamiflu History of Myelodysplasia with leukopenia stable, under the treatment of Arthritis Hyponatremia sodium 125: NS 125 per hour, Nephrology consult Hypertension Time spent 50 minutes Advanced care planning time 20 minutes Patient is full code Daughter Gely [phone] at bedside, discussed diagnosis management and prognosis with the daughter at the bedside. Patient lives with her daughter Plan discussed with: Patient, Daughter My Orders Orders - KIYA ADKINS MD Procedure Category Date Status Time Tramadol Hcl (Ultram) PHA 02/22/25 In Process 10:15 * Cardiology Consult CONS 02/22/25 Transmitted 12:59 Communication Order ORDERS 02/22/25 Transmitted 13:15 Oseltamivir 75mg PHA 02/23/25 Transmitted Capsule (Tamiflu 75mg 10:00 NS PHA 02/23/25 Verified 08:15 Date of Service: Feb 23, 2025 Billing Provider: KIYA ADKINS MD Common Visit Codes: [id number] INP/OBS CARE(HIGH) Secondary Visit Codes: [id number] CARE PLAN 30 MINUTES KIYA ADKINS MD Feb 23, 2025 08:23
[2025-02-23] MEDS: OSELTAMIVIR 75 MG CAP PO ONE (09:34)
[2025-02-23 12:41] LABS: Hematocrit 36.0 % (36.0-46.0); Hemoglobin 11.5 g/dL (12.2-16.2); Mean Corpuscular Hemoglobin 29.6 pg (28.0-32.0); Mean Corpuscular Volume 92.8 fL (80.0-100.0); Nucleated Red Blood Cells % 0.8 %
--- NOTE | 2025-02-23 20:09 | DVHPN2 ---
Progress Note - Dictate Date Seen: Feb 23, 2025 Medical Necessity Reason Pt with a Central, PICC or Fol: No Subjective Patient was seen and evaluated in follow up. Patient complains of chest discomfort. WBC 1.1, NA 125. TSH is WNL. Prelim blood cultures are negative. Telemetry reviewed. vital signs Vital Sign Date Time Temp Pulse Resp B/P (MAP) Pulse Ox O2 Delivery O2 Flow Rate FiO2 02/23/25 16:35 98.3 72 17 139/74 (95) 96 98.3 02/23/25 08:00 Nasal Cannula* 2 28 Total Intake and Output 02/22/25 02/22/25 02/23/25 15:00 23:00 07:00 Intake Total 300 ml 700 ml Balance 300 ml 700 ml medications Current Medications Medications Dose Ordered Sig/Lilly Route Start Time Stop Time Status Last Admin Dose Admin Ceftriaxone Sodium 50 ml @ 100 mls/hr DAILY@09 IV 02/22/25 09:00 02/23/25 09:33 100 MLS/HR Ascorbic Acid 500 mg DAILY PO 02/22/25 10:00 02/23/25 09:34 500 MG Cholecalciferol 1,000 unit BID PO 02/21/25 22:00 02/23/25 09:34 1,000 UNIT Ferrous Sulfate 325 mg DAILY PO 02/22/25 10:00 02/23/25 09:34 325 MG Lisinopril 20 mg DAILY PO 02/22/25 10:00 02/23/25 09:34 20 MG Folic Acid 1 mg HS PO 02/21/25 22:00 02/22/25 21:20 1 MG Lactulose 30 ml DAILY PO 02/22/25 10:00 02/23/25 09:33 30 ML Multivitamins 1 tab DAILY PO 02/22/25 10:00 02/23/25 09:34 1 TAB Sodium Chloride 10 ml Q8HR IV 02/21/25 22:00 02/23/25 13:02 10 ML Docusate Sodium 100 mg BIDPRN PRN PO 02/21/25 19:00 Ondansetron HCl 4 mg Q4HP PRN IV 02/21/25 19:00 02/22/25 20:14 4 MG Azithromycin 250 ml @ 125 mls/hr DAILY IV 02/22/25 10:00 02/23/25 10:00 125 MLS/HR Hydralazine HCl 10 mg Q6HP PRN IV 02/21/25 19:15 02/23/25 05:43 10 MG Tramadol HCl 50 mg Q6HP PRN PO 02/22/25 10:15 02/22/25 10:52 50 MG Oseltamivir Phosphate 30 mg BID PO 02/23/25 22:00 02/27/25 22:01 Sodium Chloride 1,000 ml @ 75 mls/hr [id number] IV 02/23/25 13:15 02/23/25 13:15 75 MLS/HR objective GENERAL: Alert and oriented x 3. No acute distress. EYES: PERRL, EOMI. Anicteric. HENT: Moist mucous membranes. LUNGS: Decreased breath sounds. CARDIOVASCULAR: Regular rate and rhythm. ABDOMEN: Soft, nontender and nondistended. EXTREMITIES: No edema. NEUROLOGIC: No focal neurological deficits. SKIN: Warm, dry. laboratory and microbiology Laboratory Tests 02/23/25 13:32 02/23/25 12:00 02/23/25 04:47 Test 02/23/25 04:47 Range/Units Serum Glucose 100 74-106 mg/dL Problem List Chest pain, likely pleuritic. Rule out structural heart disease. Hypertension. Pneumonia. Emphysema. Myelodysplastic syndrome with associated leukopenia. Sjgren's syndrome. Rheumatoid arthritis. Possible early-onset dementia. Assessment/Plan Continued all current supportive medical care. IV antibiotics as ordered. IV Hydralazine for SBP >150. Lisinopril. Additional plan as per the hospital course. Plan discussed with: Patient HELENA WOODALL MD Feb 23, 2025 19:10
--- NOTE | 2025-02-23 21:07 | DVHINCON2 ---
Date of service: Feb 23, 2025 Reason for Consultation Hyponatremia History of Present Illness 79 years old female with past medical history of myelodysplasia, arthritis, hypertension, cholecystectomy, hysterectomy presented with chief complaints of chest pain left-sided pleuritic type denies any urinary complaints she has unaware of the exact medications she takes nephrology consulted for hyponatremia Past Medical History As per HPI Past Surgical History As documented in HPI Allergies: Coded Allergies: Shellfish Allergy (Verified Allergy, Intermediate, ITCHING , 06/22/24) Acetaminophen (Verified Allergy, Unknown, 02/21/25) Hydrocodone (Verified Allergy, Unknown, 02/21/25) Home Meds Active Scripts Lactulose (Lactulose) 10 Gm/15 Ml Celena, 20 GM PO DAILY PRN for 30 Days, #1000 ML 0 Refills Prov:SIVA BAEZ RESIDENT 06/22/24 Reported Medications Ascorbic Acid (VITAMIN C TABLET) 500 Mg Tb, 1 TAB PO DAILY, #30 TAB 3 Refills 06/20/24 Patients Own Medication (PATIENTS OWN MEDICATION) . PTS OWN MED-OBTAIN FROM PT AND SEND TO RX DRUG: FREQ: RX# EXP: DATE DISP: TECH: RPH: 06/20/24 Calcium Citrate (Calcium Citrate) 200 Mg Tab, 400 MG PO, TAB 06/20/24 Lisinopril (Lisinopril) 20 Mg Tab, 20 MG PO for 30 Days, MG 06/20/24 Ascorbic Acid (Vitamin C) 500 Mg Chw, 500 MG PO HS, CHW 10/01/15 Alpha Tocopheryl Acid Succinat (VITAMIN E) 100 Unit Tab, 100 UNIT PO HS, TAB 10/01/15 Calcium Citrate Tetrahydrate (Calcium Citrate) Citrate Pow, 1 TAB PO HS, POW 10/01/15 Biotin (Vitamin H) (Biotin) 1,000 Mcg Tab, 1000 MCG PO DAILY, TAB 10/01/15 Multiple Vitamin (Multivitamins) Cap, 1 CAP PO DAILY, #30 CAP 3 Refills 10/01/15 Cholecalciferol (VITAMIN D-3) 1,000 Unit Tab, 1000 UNIT PO BID, TAB 10/01/15 Cyclosporine (Ophth) (Restasis) 0.05 % Emu, 1 DROP EACHEYE BID, #60 VIAL 3 Refills 10/01/15 Leucovorin Calcium (Leucovorin Calcium) 5 Mg Tab, 5 MG PO QWEEKLY, TAB 10/01/15 Etanercept (ENBREL) 50 Mg/Ml Inj, 50 MG SUBCUT QWEEKLY, #12 SYR 10/01/15 Folic Acid (Folic Acid) 1 Mg Tab, 1000 MCG PO HS 03/31/10 Cevimeline Hydrochloride Hemih (Evoxac) 30 Mg Cap, 30 MG PO BID 03/31/10 Etodolac (Etodolac) 200 Mg Cap, 200 MG PO BID 03/31/10 Discontinued Reported Medications Ferrous Sulfate (Ferrous Sulfate) 325 Mg Tab, 325 MG PO DAILY, TAB 10/01/15 Current Medications Current Medications Medications (Trade) Dose Ordered Sig/Lilly Route PRN Reason Start Time Stop Time Status Last Admin Oseltamivir Phosphate (Tamiflu 30MG Capsule) 30 mg BID PO 02/23/25 22:00 02/27/25 22:01 02/24/25 10:10 Sodium Chloride 1,000 ml @ 75 mls/hr [id number] IV 02/23/25 13:15 02/24/25 10:09 Sodium Bicarbonate 650 mg QID PO 02/24/25 12:00 UNV Family History: Patient reports no known family medical history. Review of Systems As per HPI H&P Exam Vital Signs/I&O Vital Sign Date Time Temp Pulse Resp B/P (MAP) Pulse Ox O2 Delivery O2 Flow Rate FiO2 02/24/25 10:10 134/95 02/24/25 05:00 98.2 71 16 98 98.2 02/23/25 20:00 Room Air* 0 21 Intake and Output 02/23/25 02/24/25 19:00 07:00 Intake Total 480 ml 350 ml Balance 480 ml 350 ml Intake Oral 480 ml 350 ml # Voids 3 3 # Bowel Movements 1 Physical Exam General-not in any distress HEENT-normocephalic, no icterus, no pallor, neck supple Respiratory-fair air entry bilateral, [id number] heard, no murmurs appreciated Abdominal-soft, nontender, nondistended Musculoskeletal-no pedal edema, no calf tenderness Genitourinary-deferred Neuro-awake alert oriented x3, Psychiatric-not agitated, cooperative, Skin has bruises Labs/Diagnostic Data Labs/Diagnostic Data Laboratory Tests Test 02/24/25 04:46 02/23/25 13:32 02/23/25 12:00 02/23/25 04:47 Range/Units White Blood Count 1.2 *L 1.1 *L 4.4-10.8 10^3/uL Red Blood Count 3.40 L 3.88 L 4.0-5.20 10^6/uL Hemoglobin 10.1 L 11.5 L 12.2-16.2 g/dL Hematocrit 29.4 #L 36.0 # 36.0-46.0 % Mean Corpuscular Volume 86.6 # 92.8 # 80.0-100.0 fL Mean Corpuscular Hemoglobin 29.8 29.6 28.0-32.0 pg Mean Corpuscular Hemoglobin Concent 34.4 31.9 L 32.0-36.0 g/dL Red Cell Distribution Width 14.8 H 16.2 H 11.8-14.3 % Platelet Count 258 301 140-450 10^3/uL Mean Platelet Volume 6.7 L 6.5 L 6.9-10.8 fL Neutrophils (%) (Auto) 8.9 L 26.8 L 37.0-80.0 % Lymphocytes (%) (Auto) 42.9 25.9 10.0-50.0 % Monocytes (%) (Auto) 47.2 H 46.4 H 0.0-12.0 % Eosinophils (%) (Auto) 0.9 0.5 0.0-7.0 % Basophils (%) (Auto) 0.1 0.4 0.0-2.0 % Neutrophils # (Auto) 0.1 L 0.3 L 1.6-8.6 10 ^3/uL Lymphocytes # (Auto) 0.5 0.3 L 0.4-5.4 10 ^3/uL Monocytes # (Auto) 0.6 0.5 0-1.3 10 ^3/uL Eosinophils # (Auto) 0 0 0-0.8 10 ^3/uL Basophils # (Auto) 0 0 0-0.2 10 ^3/uL Nucleated Red Blood Cells 0.2 0.8 % Sodium Level 126 L 125 L 125 #L 136-145 mmol/L Potassium Level 3.8 4.6 3.5-5.1 mmol/L Chloride Level 97 L 98 98-107 mmol/L Carbon Dioxide Level 19 L 17 L 20-31 mmol/L Anion Gap 10 10 5-15 Blood Urea Nitrogen 16 11 9-23 mg/dL Creatinine 0.73 # 0.56 0.550-1.02 mg/dL Glomerular Filtration Rate Calc 84 93 >90 mL/min BUN/Creatinine Ratio 21.9 H 19.6 10.0-20.0 Serum Glucose 96 100 74-106 mg/dL Calcium Level 8.8 9.0 8.7-10.4 mg/dL Total Bilirubin 0.3 0.3 0.2-1.0 mg/dL Aspartate Amino Transferase (AST) 28 25 13-40 U/L Alanine Aminotransferase (ALT) 16 16 7-40 U/L Alkaline Phosphatase 75 81 46-116 U/L Total Protein 6.7 7.0 5.7-8.2 g/dL Albumin 3.0 L 3.0 L 3.2-4.8 g/dL Test 02/22/25 16:15 02/22/25 05:03 02/21/25 19:11 02/21/25 15:23 Range/Units Influenza Type A Antigen Negative Negative Influenza Type B Antigen Positive Negative SARS-CoV-2 Antigen (Rapid) Negative NEGATIVE White Blood Count 1.3 *L 4.4-10.8 10^3/uL Red Blood Count 3.46 L 4.0-5.20 10^6/uL Hemoglobin 10.2 L 12.2-16.2 g/dL Hematocrit 29.8 L 36.0-46.0 % Mean Corpuscular Volume 86.1 80.0-100.0 fL Mean Corpuscular Hemoglobin 29.6 28.0-32.0 pg Mean Corpuscular Hemoglobin Concent 34.4 32.0-36.0 g/dL Red Cell Distribution Width 15.7 H 11.8-14.3 % Platelet Count 297 140-450 10^3/uL Mean Platelet Volume 7.1 6.9-10.8 fL Neutrophils (%) (Auto) 37.0-80.0 % Lymphocytes (%) (Auto) 10.0-50.0 % Monocytes (%) (Auto) 0.0-12.0 % Basophils (%) (Auto) 0.0-2.0 % Neutrophils # (Auto) 1.6-8.6 10 ^3/uL Lymphocytes # (Auto) 0.4-5.4 10 ^3/uL Monocytes # (Auto) 0-1.3 10 ^3/uL Differential Total Cells Counted 100.0 100 Neutrophils % (Manual) 23 L 37.0-80.0 Band Neutrophils % (Manual) 7 Lymphocytes % (Manual) 58 H 10.0-50.0 Monocytes % (Manual) 11 0-12 Eosinophils % (Manual) 1 0-7 Basophils % (Manual) 0 0.0-2.0 Metamyelocytes % (manual) 0 Myelocytes % (Manual) 0 Promyelocytes % (Manual) 0 Blast Cells % (Manual) 0 Reactive Lymphocytes 0 Platelet Estimate Adequate Sodium Level 130 L 136-145 mmol/L Potassium Level 4.5 3.5-5.1 mmol/L Chloride Level 103 98-107 mmol/L Carbon Dioxide Level 18 L 20-31 mmol/L Anion Gap 9 5-15 Blood Urea Nitrogen 14 # 9-23 mg/dL Creatinine 0.64 0.550-1.02 mg/dL Glomerular Filtration Rate Calc 90 >90 mL/min BUN/Creatinine Ratio 21.9 H 10.0-20.0 Serum Glucose 97 74-106 mg/dL Hemoglobin A1c 5.5 <5.7 % A1C Calcium Level 8.9 8.7-10.4 mg/dL Magnesium Level 1.8 1.6-2.6 mg/dL Total Bilirubin 0.4 0.2-1.0 mg/dL Aspartate Amino Transferase (AST) 24 13-40 U/L Alanine Aminotransferase (ALT) 16 7-40 U/L Alkaline Phosphatase 82 46-116 U/L Total Protein 7.0 5.7-8.2 g/dL Albumin 3.1 L 3.2-4.8 g/dL Triglycerides Level 57 < 150 mg/dL Cholesterol Level 90 < 200 mg/dL LDL Cholesterol 52 < 100 mg/dL HDL Cholesterol 32 L 40-59 mg/dL Thyroid Stimulating Hormone (TSH) 1.18 0.55-4.78 uIU/mL Prothrombin Time 10.4 9.3-11.8 sec Prothrombin Time INR 0.98 0.9-1.15 Urine Color Light-yellow Yellow Urine Clarity Clear Clear Urine pH 6.5 5.0-9.0 Urine Specific [place] 1.017 1.001-1.035 Urine Protein Trace H Negative Urine Ketones Negative Negative Urine Blood Negative Negative /uL Urine Nitrite Negative Negative Urine Bilirubin 1+ H Negative Urine Urobilinogen Normal Negative mg/dL Urine Leukocyte Esterase Negative Negative /uL Urine RBC 3 0 - 4 /hpf Urine Microscopic WBC < 1 0-5 /HPF Urine Squamous Epithelial Cells None seen <5 /hpf Urine Bacteria None seen None Seen /hpf Urine Hyaline Casts Few 0 - 2 /lpf Urine Glucose Normal Normal mg/dL Test 02/21/25 14:03 02/21/25 12:58 Range/Units Troponin I High Sensitivity 3 L 5 </=34 ng/L White Blood Count 1.5 *L 4.4-10.8 10^3/uL Red Blood Count 3.61 L 4.0-5.20 10^6/uL Hemoglobin 10.6 L 12.2-16.2 g/dL Hematocrit 31.3 L 36.0-46.0 % Mean Corpuscular Volume 86.7 80.0-100.0 fL Mean Corpuscular Hemoglobin 29.3 28.0-32.0 pg Mean Corpuscular Hemoglobin Concent 33.8 32.0-36.0 g/dL Red Cell Distribution Width 15.6 H 11.8-14.3 % Platelet Count 280 140-450 10^3/uL Mean Platelet Volume 6.7 L 6.9-10.8 fL Neutrophils (%) (Auto) 37.0-80.0 % Lymphocytes (%) (Auto) 10.0-50.0 % Monocytes (%) (Auto) 0.0-12.0 % Basophils (%) (Auto) 0.0-2.0 % Neutrophils # (Auto) 1.6-8.6 10 ^3/uL Lymphocytes # (Auto) 0.4-5.4 10 ^3/uL Monocytes # (Auto) 0-1.3 10 ^3/uL Differential Total Cells Counted 100.0 100 Neutrophils % (Manual) 18 L 37.0-80.0 Band Neutrophils % (Manual) 3 Lymphocytes % (Manual) 45 10.0-50.0 Monocytes % (Manual) 32 H 0-12 Eosinophils % (Manual) 2 0-7 Basophils % (Manual) 0 0.0-2.0 Metamyelocytes % (manual) 0 Myelocytes % (Manual) 0 Promyelocytes % (Manual) 0 Blast Cells % (Manual) 0 Reactive Lymphocytes 0 Platelet Estimate Adequate Anisocytosis (manual) Slight Sodium Level 131 L 136-145 mmol/L Potassium Level 4.4 3.5-5.1 mmol/L Chloride Level 102 98-107 mmol/L Carbon Dioxide Level 20 20-31 mmol/L Anion Gap 9 5-15 Blood Urea Nitrogen 26 H 9-23 mg/dL Creatinine 0.86 0.550-1.02 mg/dL Glomerular Filtration Rate Calc 69 >90 mL/min BUN/Creatinine Ratio 30.2 H 10.0-20.0 Serum Glucose 103 74-106 mg/dL Calcium Level 9.1 8.7-10.4 mg/dL Carcinoembryonic Antigen 1.64 <=5.0 ng/mL Assessment Hyponatremia likely secondary to lung pathology Positive influenza pneumonia Neutropenia Anemia Recommendations Continue NS IV Check serum osmolality, urine osmolality, uric acid, urine sodium We will follow closely Free water restriction Plan discussed with: Patient DEXTER PÉREZ MD Feb 23, 2025 21:07
[2025-02-23] MEDS: OSELTAMIVIR 30 MG CAP PO SCH (21:31)
[2025-02-24] VITALS (8 sets, daily range): BP systolic 134–160; BP diastolic 76–95; PULSE 71–100; RESP 16–18; TEMP 97.9–98.6; O2SAT 95–98
[2025-02-24 05:53] LABS: Hematocrit 29.4 % (36.0-46.0); Hemoglobin 10.1 g/dL (12.2-16.2)
[2025-02-24 05:56] LABS: Mean Corpuscular Hemoglobin 29.8 pg (28.0-32.0); Mean Corpuscular Volume 86.6 fL (80.0-100.0); Nucleated Red Blood Cells % 0.2 %
[2025-02-24 06:08] LABS: Alanine Aminotransferase 16 U/L (7-40); Alkaline Phosphatase 75 U/L (46-116); Anion Gap 10 (5-15); BUN/Creatinine Ratio 21.9 (10.0-20.0); Bilirubin, Total 0.3 mg/dL (0.2-1.0); Blood Urea Nitrogen 16 mg/dL (9-23); Calcium 8.8 mg/dL (8.7-10.4); Glucose 96 mg/dL (74-106); Potassium 3.8 mmol/L (3.5-5.1); Total Protein 6.7 g/dL (5.7-8.2)
[2025-02-24 06:09] LABS: Albumin 3.0 g/dL (3.2-4.8); Carbon Dioxide 19 mmol/L (20-31); Chloride 97 mmol/L (98-107); Sodium 126 mmol/L (136-145)
--- NOTE | 2025-02-24 07:53 | DVHPN2 ---
Reviewed: Care Plan, H&P, Labs, Medications, Previous Orders, Radiology Changes from previous H/P or p: No Changes Objective Vitals Vital Signs Date Time Temp Pulse Resp B/P (MAP) Pulse Ox O2 Delivery O2 Flow Rate FiO2 02/24/25 05:00 98.2 71 16 160/90 (113) 98 98.2 02/23/25 20:00 Room Air* 0 21 Intake/Output Intake and Output 02/24/25 07:00 Intake Total 830 ml Balance 830 ml Intake Oral 830 ml # Voids 6 # Bowel Movements 1 Medications Current Medications Medications Dose Ordered Sig/Lilly Route Start Time Stop Time Status Last Admin Dose Admin Ceftriaxone Sodium 50 ml @ 100 mls/hr DAILY@09 IV 02/22/25 09:00 02/23/25 09:33 100 MLS/HR Ascorbic Acid 500 mg DAILY PO 02/22/25 10:00 02/23/25 09:34 500 MG Cholecalciferol 1,000 unit BID PO 02/21/25 22:00 02/23/25 21:31 1,000 UNIT Ferrous Sulfate 325 mg DAILY PO 02/22/25 10:00 02/23/25 09:34 325 MG Lisinopril 20 mg DAILY PO 02/22/25 10:00 02/23/25 09:34 20 MG Folic Acid 1 mg HS PO 02/21/25 22:00 02/23/25 21:31 1 MG Lactulose 30 ml DAILY PO 02/22/25 10:00 02/23/25 09:33 30 ML Multivitamins 1 tab DAILY PO 02/22/25 10:00 02/23/25 09:34 1 TAB Sodium Chloride 10 ml Q8HR IV 02/21/25 22:00 02/23/25 21:30 10 ML Docusate Sodium 100 mg BIDPRN PRN PO 02/21/25 19:00 Ondansetron HCl 4 mg Q4HP PRN IV 02/21/25 19:00 02/22/25 20:14 4 MG Azithromycin 250 ml @ 125 mls/hr DAILY IV 02/22/25 10:00 02/23/25 10:00 125 MLS/HR Hydralazine HCl 10 mg Q6HP PRN IV 02/21/25 19:15 02/23/25 05:43 10 MG Tramadol HCl 50 mg Q6HP PRN PO 02/22/25 10:15 02/22/25 10:52 50 MG Oseltamivir Phosphate 30 mg BID PO 02/23/25 22:00 02/27/25 22:01 02/23/25 21:31 30 MG Sodium Chloride 1,000 ml @ 75 mls/hr [id number] IV 02/23/25 13:15 02/24/25 07:02 75 MLS/HR Laboratory Results Laboratory Tests 02/24/25 04:46 Chemistry Test 02/24/25 04:46 Albumin 3.0 g/dL (3.2-4.8) L Calcium Level 8.8 mg/dL (8.7-10.4) Total Protein 6.7 g/dL (5.7-8.2) LFT Test 02/24/25 04:46 Alanine Aminotransferase (ALT) 16 U/L (7-40) Alkaline Phosphatase 75 U/L (46-116) Aspartate Amino Transferase (AST) 28 U/L (13-40) Total Bilirubin 0.3 mg/dL (0.2-1.0) Urinalysis Test 02/21/25 15:23 Urine Color Light-yellow (Yellow) Urine Clarity Clear (Clear) Urine pH 6.5 (5.0-9.0) Urine Specific [place] 1.017 (1.001-1.035) Urine Protein Trace (Negative) H Urine Ketones Negative (Negative) Urine Blood Negative /uL (Negative) Urine Nitrite Negative (Negative) Urine Bilirubin 1+ (Negative) H Urine Urobilinogen Normal mg/dL (Negative) Urine Leukocyte Esterase Negative /uL (Negative) Urine RBC 3 /hpf (0 - 4) Urine Microscopic WBC < 1 /HPF (0-5) Urine Squamous Epithelial Cells None seen /hpf (<5) Urine Bacteria None seen /hpf (None Seen) Urine Hyaline Casts Few /lpf (0 - 2) Urine Glucose Normal mg/dL (Normal) Microbiology Microbiology Date/Time Source Procedure Growth Status 02/21/25 19:11 Blood Blood Culture - Preliminary NO GROWTH AFTER 48 HOURS OF INCUBATION. Resulted Labs and/or images reviewed: Labs reviewed by me, Image(s) reviewed by me Assessment/Plan Assessment/Plan Acute chest pain: Noncardiac etiology Troponin negative, cardiology consult by Dr. Trevino appreciated, echocardiogram 65 percent ejection fraction, no further cardiac workup Left upper lobe pneumonia: Rocephin azithromycin albuterol Atrovent Laura test negative Type B flu positive: Tamiflu History of Myelodysplasia with leukopenia stable, under the treatment of Arthritis Hyponatremia sodium 125: NS 125 per hour, Nephrology consult appreciated Hypertension Time spent 50 minutes Advanced care planning time 20 minutes Patient is full code Daughter Gely [phone] at bedside, discussed diagnosis management and prognosis with the daughter at the bedside. Patient lives with her daughter Plan discussed with: Patient My Orders Orders - KIYA ADKINS MD Procedure Category Date Status Time Oseltamivir 30mg PHA 02/23/25 In Process Capsule (Tamiflu 30mg 22:00 *[facility]. [facility] CONS 02/23/25 Transmitted -[facility] [place] 08:23 Date of Service: Feb 24, 2025 Billing Provider: KIYA ADKINS MD Common Visit Codes: [id number] INP/OBS CARE(HIGH) KIYA ADKINS MD Feb 24, 2025 07:53
[2025-02-24] MEDS: SODIUM BICARBONATE 650 MG TAB PO SCH (11:18)
--- NOTE | 2025-02-24 18:57 | DVHPN2 ---
Progress Note Date Seen: Feb 24, 2025 Medical Necessity Reason Pt with a Central, PICC or Fol: No Subjective Patient reports: No new complaints, Feels better Review of Systems: HEENT:Normal, CVS:Normal, RESPIRATORY:Normal, GI:Normal, :Normal, MSK:Normal, NEURO:Normal Objective vital signs Vital Sign Date Time Temp Pulse Resp B/P (MAP) Pulse Ox O2 Delivery O2 Flow Rate FiO2 02/24/25 17:00 98.6 73 17 147/77 (100) 97 98.6 02/24/25 08:00 Room Air* 0 21 Total Intake and Output 02/23/25 02/23/25 02/24/25 15:00 23:00 07:00 Intake Total 480 ml 350 ml Balance 480 ml 350 ml medications Current Medications Medications Dose Ordered Sig/Lilly Route Start Time Stop Time Status Last Admin Dose Admin Ceftriaxone Sodium 50 ml @ 100 mls/hr DAILY@09 IV 02/22/25 09:00 02/24/25 10:09 100 MLS/HR Ascorbic Acid 500 mg DAILY PO 02/22/25 10:00 02/24/25 10:09 500 MG Cholecalciferol 1,000 unit BID PO 02/21/25 22:00 02/24/25 10:09 1,000 UNIT Ferrous Sulfate 325 mg DAILY PO 02/22/25 10:00 02/24/25 10:09 325 MG Lisinopril 20 mg DAILY PO 02/22/25 10:00 02/24/25 10:10 20 MG Folic Acid 1 mg HS PO 02/21/25 22:00 02/23/25 21:31 1 MG Lactulose 30 ml DAILY PO 02/22/25 10:00 02/24/25 10:09 30 ML Multivitamins 1 tab DAILY PO 02/22/25 10:00 02/24/25 10:09 1 TAB Sodium Chloride 10 ml Q8HR IV 02/21/25 22:00 02/24/25 13:11 10 ML Docusate Sodium 100 mg BIDPRN PRN PO 02/21/25 19:00 Ondansetron HCl 4 mg Q4HP PRN IV 02/21/25 19:00 02/22/25 20:14 4 MG Azithromycin 250 ml @ 125 mls/hr DAILY IV 02/22/25 10:00 02/24/25 10:09 125 MLS/HR Hydralazine HCl 10 mg Q6HP PRN IV 02/21/25 19:15 02/23/25 05:43 10 MG Tramadol HCl 50 mg Q6HP PRN PO 02/22/25 10:15 02/22/25 10:52 50 MG Oseltamivir Phosphate 30 mg BID PO 02/23/25 22:00 02/27/25 22:01 02/24/25 10:10 30 MG Sodium Chloride 1,000 ml @ 75 mls/hr [id number] IV 02/23/25 13:15 02/24/25 10:09 75 MLS/HR Sodium Bicarbonate 650 mg QID PO 02/24/25 12:00 02/24/25 17:26 650 MG laboratory and microbiology Laboratory Tests 02/24/25 04:46 Test 02/24/25 04:46 Range/Units Serum Glucose 96 74-106 mg/dL Microbiology Date/Time Source Procedure Growth Status 02/21/25 19:11 Blood Blood Culture - Preliminary NO GROWTH AFTER 48 HOURS OF INCUBATION. Resulted Problem List/Assessment/Plan Problem List/Assessment/Plan Hyponatremia likely secondary to lung pathology Positive influenza pneumonia Neutropenia Anemia MDS? Recommendations Continue NS IV Check serum osmolality, urine osmolality, uric acid, urine sodium We will follow closely Free water restriction Plan discussed with: Patient My Orders My Orders Orders - DEXTER PÉREZ MD Procedure Category Date Status Time Osmolality Urine LAB 02/24/25 Logged 09:57 Urine Sodium LAB 02/24/25 Logged 09:57 Sodium Bicarb Tab PHA 02/24/25 In Process 12:00 Dietary Evaluation Review Recommendations by RD: Protein Supplementation Comments: 1) Add 2g Na restriction to diet 2) Initiate Ensure High Protein qd; Encourage optimal PO intake 3) Follow-up with cardiology, rheumatology, endocrinology, and neurology 4) Continue to monitor I&O, labs, and skin integrity Expected Outcomes/Goals: 1) appetite and labs to improve 2) f/u in 3-5 days DEXTER PÉREZ MD Feb 24, 2025 18:57
--- NOTE | 2025-02-24 23:17 | DVHPN2 ---
Progress Note - Dictate Date Seen: Feb 24, 2025 Medical Necessity Reason Pt with a Central, PICC or Fol: No Subjective Patient was seen and evaluated in follow up. No overnight events. Patient is complaining of intermittent chest discomfort. WBC 1.2, NA 126, CL 97. Telemetry reviewed. vital signs Vital Sign Date Time Temp Pulse Resp B/P (MAP) Pulse Ox O2 Delivery O2 Flow Rate FiO2 02/24/25 10:10 134/95 02/24/25 09:00 97.9 86 16 97 97.9 02/24/25 08:00 Room Air* 0 21 Total Intake and Output 02/23/25 02/23/25 02/24/25 15:00 23:00 07:00 Intake Total 480 ml 350 ml Balance 480 ml 350 ml medications Current Medications Medications Dose Ordered Sig/Lilly Route Start Time Stop Time Status Last Admin Dose Admin Ceftriaxone Sodium 50 ml @ 100 mls/hr DAILY@09 IV 02/22/25 09:00 02/24/25 10:09 100 MLS/HR Ascorbic Acid 500 mg DAILY PO 02/22/25 10:00 02/24/25 10:09 500 MG Cholecalciferol 1,000 unit BID PO 02/21/25 22:00 02/24/25 10:09 1,000 UNIT Ferrous Sulfate 325 mg DAILY PO 02/22/25 10:00 02/24/25 10:09 325 MG Lisinopril 20 mg DAILY PO 02/22/25 10:00 02/24/25 10:10 20 MG Folic Acid 1 mg HS PO 02/21/25 22:00 02/23/25 21:31 1 MG Lactulose 30 ml DAILY PO 02/22/25 10:00 02/24/25 10:09 30 ML Multivitamins 1 tab DAILY PO 02/22/25 10:00 02/24/25 10:09 1 TAB Sodium Chloride 10 ml Q8HR IV 02/21/25 22:00 02/24/25 13:11 10 ML Docusate Sodium 100 mg BIDPRN PRN PO 02/21/25 19:00 Ondansetron HCl 4 mg Q4HP PRN IV 02/21/25 19:00 02/22/25 20:14 4 MG Azithromycin 250 ml @ 125 mls/hr DAILY IV 02/22/25 10:00 02/24/25 10:09 125 MLS/HR Hydralazine HCl 10 mg Q6HP PRN IV 02/21/25 19:15 02/23/25 05:43 10 MG Tramadol HCl 50 mg Q6HP PRN PO 02/22/25 10:15 02/22/25 10:52 50 MG Oseltamivir Phosphate 30 mg BID PO 02/23/25 22:00 02/27/25 22:01 02/24/25 10:10 30 MG Sodium Chloride 1,000 ml @ 75 mls/hr [id number] IV 02/23/25 13:15 02/24/25 10:09 75 MLS/HR Sodium Bicarbonate 650 mg QID PO 02/24/25 12:00 02/24/25 11:18 650 MG objective GENERAL: Alert and oriented x 3. No acute distress. EYES: PERRL, EOMI. Anicteric. HENT: Moist mucous membranes. LUNGS: Decreased breath sounds. CARDIOVASCULAR: Regular rate and rhythm. ABDOMEN: Soft, nontender and nondistended. EXTREMITIES: No edema. NEUROLOGIC: No focal neurological deficits. SKIN: Warm, dry. laboratory and microbiology Laboratory Tests 02/24/25 04:46 Test 02/24/25 04:46 Range/Units Serum Glucose 96 74-106 mg/dL Problem List Chest pain, likely pleuritic. Rule out structural heart disease. Hypertension. Pneumonia. Emphysema. Myelodysplastic syndrome with associated leukopenia. Sjgren's syndrome. Rheumatoid arthritis. Possible early-onset dementia. Assessment/Plan Continued all current supportive medical care. IV antibiotics as ordered. Lisinopril. Tamiflu. Additional plan as per the hospital course. Dietary Evaluation Review Recommendations by RD: Protein Supplementation Comments: 1) Add 2g Na restriction to diet 2) Initiate Ensure High Protein qd; Encourage optimal PO intake 3) Follow-up with cardiology, rheumatology, endocrinology, and neurology 4) Continue to monitor I&O, labs, and skin integrity Expected Outcomes/Goals: 1) appetite and labs to improve 2) f/u in 3-5 days Plan discussed with: Patient HELENA WOODALL MD Feb 24, 2025 13:36
[2025-02-25 01:00] VITALS: BP 167/95; PULSE 69; RESP 18; TEMP 98; O2SAT 97
[2025-02-25 05:00] VITALS: BP 137/75; PULSE 74; RESP 18; TEMP 98.8; O2SAT 98
[2025-02-25 05:56] LABS: Hemoglobin 10.0 g/dL (12.2-16.2)
[2025-02-25 05:58] LABS: Hematocrit 27.7 % (36.0-46.0); Mean Corpuscular Hemoglobin 30.4 pg (28.0-32.0); Mean Corpuscular Volume 84.1 fL (80.0-100.0)
[2025-02-25 06:21] LABS: Alanine Aminotransferase 19 U/L (7-40); Alkaline Phosphatase 75 U/L (46-116); Anion Gap 6 (5-15); BUN/Creatinine Ratio 22.4 (10.0-20.0); Blood Urea Nitrogen 15 mg/dL (9-23); Calcium 8.7 mg/dL (8.7-10.4); Carbon Dioxide 22 mmol/L (20-31); Glucose 102 mg/dL (74-106); Potassium 3.6 mmol/L (3.5-5.1); Total Protein 6.7 g/dL (5.7-8.2)
[2025-02-25 06:22] LABS: Albumin 3.0 g/dL (3.2-4.8); Bilirubin, Total 0.3 mg/dL (0.2-1.0); Chloride 97 mmol/L (98-107); Sodium 125 mmol/L (136-145)
[2025-02-25 07:00] LABS: Total Cells Counted 100.0 (100)
[2025-02-25 08:00] VITALS: PULSE 83
--- NOTE | 2025-02-25 08:40 | DVHPN2 ---
Reviewed: Care Plan, H&P, Labs, Medications, Previous Orders, Radiology Changes from previous H/P or p: No Changes Objective Vitals Vital Signs Date Time Temp Pulse Resp B/P (MAP) Pulse Ox O2 Delivery O2 Flow Rate FiO2 02/25/25 05:00 98.8 74 18 137/75 (95) 98 98.8 02/24/25 19:32 Room Air* 0 21 Intake/Output Intake and Output 02/25/25 07:00 Intake Total 3060 ml Balance 3060 ml Intake Oral 2060 ml IV Total 1000 ml # Voids 7 # Bowel Movements 1 Medications Current Medications Medications Dose Ordered Sig/Lilly Route Start Time Stop Time Status Last Admin Dose Admin Ceftriaxone Sodium 50 ml @ 100 mls/hr DAILY@09 IV 02/22/25 09:00 02/24/25 10:09 100 MLS/HR Ascorbic Acid 500 mg DAILY PO 02/22/25 10:00 02/24/25 10:09 500 MG Cholecalciferol 1,000 unit BID PO 02/21/25 22:00 02/24/25 21:54 1,000 UNIT Ferrous Sulfate 325 mg DAILY PO 02/22/25 10:00 02/24/25 10:09 325 MG Lisinopril 20 mg DAILY PO 02/22/25 10:00 02/24/25 10:10 20 MG Folic Acid 1 mg HS PO 02/21/25 22:00 02/24/25 21:54 1 MG Lactulose 30 ml DAILY PO 02/22/25 10:00 02/24/25 10:09 30 ML Multivitamins 1 tab DAILY PO 02/22/25 10:00 02/24/25 10:09 1 TAB Sodium Chloride 10 ml Q8HR IV 02/21/25 22:00 02/25/25 06:26 10 ML Docusate Sodium 100 mg BIDPRN PRN PO 02/21/25 19:00 Ondansetron HCl 4 mg Q4HP PRN IV 02/21/25 19:00 02/22/25 20:14 4 MG Azithromycin 250 ml @ 125 mls/hr DAILY IV 02/22/25 10:00 02/24/25 10:09 125 MLS/HR Hydralazine HCl 10 mg Q6HP PRN IV 02/21/25 19:15 02/25/25 00:38 10 MG Tramadol HCl 50 mg Q6HP PRN PO 02/22/25 10:15 02/25/25 01:35 50 MG Oseltamivir Phosphate 30 mg BID PO 02/23/25 22:00 02/27/25 22:01 02/24/25 21:54 30 MG Sodium Chloride 1,000 ml @ 75 mls/hr [id number] IV 02/23/25 13:15 02/24/25 10:09 75 MLS/HR Sodium Bicarbonate 650 mg QID PO 02/24/25 12:00 02/25/25 06:26 650 MG Laboratory Results Laboratory Tests 02/25/25 05:24 Chemistry Test 02/25/25 05:24 Albumin 3.0 g/dL (3.2-4.8) L Calcium Level 8.7 mg/dL (8.7-10.4) Total Protein 6.7 g/dL (5.7-8.2) LFT Test 02/25/25 05:24 Alanine Aminotransferase (ALT) 19 U/L (7-40) Alkaline Phosphatase 75 U/L (46-116) Aspartate Amino Transferase (AST) 32 U/L (13-40) Total Bilirubin 0.3 mg/dL (0.2-1.0) Urinalysis Test 02/21/25 15:23 Urine Color Light-yellow (Yellow) Urine Clarity Clear (Clear) Urine pH 6.5 (5.0-9.0) Urine Specific [place] 1.017 (1.001-1.035) Urine Protein Trace (Negative) H Urine Ketones Negative (Negative) Urine Blood Negative /uL (Negative) Urine Nitrite Negative (Negative) Urine Bilirubin 1+ (Negative) H Urine Urobilinogen Normal mg/dL (Negative) Urine Leukocyte Esterase Negative /uL (Negative) Urine RBC 3 /hpf (0 - 4) Urine Microscopic WBC < 1 /HPF (0-5) Urine Squamous Epithelial Cells None seen /hpf (<5) Urine Bacteria None seen /hpf (None Seen) Urine Hyaline Casts Few /lpf (0 - 2) Urine Glucose Normal mg/dL (Normal) Microbiology Microbiology Date/Time Source Procedure Growth Status 02/21/25 19:11 Blood Blood Culture - Preliminary NO GROWTH AFTER 72 HOURS OF INCUBATION. Resulted Labs and/or images reviewed: Labs reviewed by me, Image(s) reviewed by me Assessment/Plan Assessment/Plan Acute chest pain: Noncardiac etiology Troponin negative, cardiology consult by Dr. Trevino appreciated, echocardiogram 65 percent ejection fraction, no further cardiac workup Left upper lobe pneumonia: Treated with Rocephin azithromycin albuterol Atrovent Laura test negative Type B flu positive: Tamiflu History of Myelodysplasia with leukopenia stable, under the treatment of Arthritis Hyponatremia sodium 125: NS 125 per hour, Nephrology consult appreciated Hypertension Time spent 50 minutes Advanced care planning time 20 minutes Patient is full code Daughter Gely [phone] at bedside, discussed diagnosis management and prognosis with the daughter at the bedside. Patient lives with her daughter Gely who is at bedside Patient found eating breakfast on room air afebrile and daughter is willing for the patient to be discharged home today Plan discussed with: Patient Date of Service: Feb 25, 2025 Billing Provider: KIYA ADKINS MD Common Visit Codes: [id number] INP/OBS CARE(HIGH) KIYA ADKINS MD Feb 25, 2025 08:39
--- NOTE | 2025-02-25 09:32 | DVHDS2 ---
Discharge Summary Date of Admission Feb 21, 2025 at 18:50 Date of Discharge: Feb 25, 2025 Admitting Diagnosis Shortness of breath Wounds: None Labs/Diagnostic Data: Laboratory Results Test 02/25/25 05:24 02/24/25 04:46 02/22/25 16:15 02/22/25 05:03 White Blood Count 1.5 10^3/uL (4.4-10.8) Red Blood Count 3.30 10^6/uL (4.0-5.20) Hemoglobin 10.0 g/dL (12.2-16.2) Hematocrit 27.7 % (36.0-46.0) Mean Corpuscular Volume 84.1 fL (80.0-100.0) Mean Corpuscular Hemoglobin 30.4 pg (28.0-32.0) Mean Corpuscular Hemoglobin Concent 36.2 g/dL (32.0-36.0) Red Cell Distribution Width 15.0 % (11.8-14.3) Platelet Count 273 10^3/uL (140-450) Mean Platelet Volume 6.6 fL (6.9-10.8) Neutrophils (%) (Auto) % (37.0-80.0) Lymphocytes (%) (Auto) % (10.0-50.0) Monocytes (%) (Auto) % (0.0-12.0) Basophils (%) (Auto) % (0.0-2.0) Neutrophils # (Auto) 10 ^3/uL (1.6-8.6) Lymphocytes # (Auto) 10 ^3/uL (0.4-5.4) Monocytes # (Auto) 10 ^3/uL (0-1.3) Differential Total Cells Counted 100.0 (100) Neutrophils % (Manual) 13 (37.0-80.0) Band Neutrophils % (Manual) 1 Lymphocytes % (Manual) 45 (10.0-50.0) Monocytes % (Manual) 40 (0-12) Eosinophils % (Manual) 1 (0-7) Basophils % (Manual) 0 (0.0-2.0) Metamyelocytes % (manual) 0 Myelocytes % (Manual) 0 Promyelocytes % (Manual) 0 Blast Cells % (Manual) 0 Reactive Lymphocytes 0 Platelet Estimate Adequate Sodium Level 125 mmol/L (136-145) Potassium Level 3.6 mmol/L (3.5-5.1) Chloride Level 97 mmol/L (98-107) Carbon Dioxide Level 22 mmol/L (20-31) Anion Gap 6 (5-15) Blood Urea Nitrogen 15 mg/dL (9-23) Creatinine 0.67 mg/dL (0.550-1.02) Glomerular Filtration Rate Calc 89 mL/min (>90) BUN/Creatinine Ratio 22.4 (10.0-20.0) Serum Glucose 102 mg/dL (74-106) Calcium Level 8.7 mg/dL (8.7-10.4) Total Bilirubin 0.3 mg/dL (0.2-1.0) Aspartate Amino Transferase (AST) 32 U/L (13-40) Alanine Aminotransferase (ALT) 19 U/L (7-40) Alkaline Phosphatase 75 U/L (46-116) Total Protein 6.7 g/dL (5.7-8.2) Albumin 3.0 g/dL (3.2-4.8) Eosinophils (%) (Auto) 0.9 % (0.0-7.0) Eosinophils # (Auto) 0 10 ^3/uL (0-0.8) Basophils # (Auto) 0 10 ^3/uL (0-0.2) Nucleated Red Blood Cells 0.2 % Serum Osmolality 271 mOsm/kg (278-298) Uric Acid 4.4 mg/dL (3.1-7.8) Influenza Type A Antigen Negative (Negative) Influenza Type B Antigen Positive (Negative) SARS-CoV-2 Antigen (Rapid) Negative (NEGATIVE) Hemoglobin A1c 5.5 % A1C (<5.7) Magnesium Level 1.8 mg/dL (1.6-2.6) Triglycerides Level 57 mg/dL (< 150) Cholesterol Level 90 mg/dL (< 200) LDL Cholesterol 52 mg/dL (< 100) HDL Cholesterol 32 mg/dL (40-59) Thyroid Stimulating Hormone (TSH) 1.18 uIU/mL (0.55-4.78) Test 02/21/25 19:11 02/21/25 15:23 02/21/25 14:03 02/21/25 12:58 Prothrombin Time 10.4 sec (9.3-11.8) Prothrombin Time INR 0.98 (0.9-1.15) Urine Color Light-yellow (Yellow) Urine Clarity Clear (Clear) Urine pH 6.5 (5.0-9.0) Urine Specific [place] 1.017 (1.001-1.035) Urine Protein Trace (Negative) Urine Ketones Negative (Negative) Urine Blood Negative /uL (Negative) Urine Nitrite Negative (Negative) Urine Bilirubin 1+ (Negative) Urine Urobilinogen Normal mg/dL (Negative) Urine Leukocyte Esterase Negative /uL (Negative) Urine RBC 3 /hpf (0 - 4) Urine Microscopic WBC < 1 /HPF (0-5) Urine Squamous Epithelial Cells None seen /hpf (<5) Urine Bacteria None seen /hpf (None Seen) Urine Hyaline Casts Few /lpf (0 - 2) Urine Glucose Normal mg/dL (Normal) Troponin I High Sensitivity 3 ng/L (</=34) Anisocytosis (manual) Slight Carcinoembryonic Antigen 1.64 ng/mL (<=5.0) Other Laboratory Tests 02/25/25 05:24 Brief Hx & Hospital Course: 79-year-old female came in for chest pain and shortness of breaths flu history of myelodysplasia with leukopenia and the treatment of Dr. Hawthorne history of hypertension and arthritis tested positive for flu type B treated with the Tamiflu also had left upper lobe pneumonia treated with Rocephin azithromycin albuterol and Atrovent she also complained of chest pain troponin negative cardiology consult Dr. Trevino echo 65 percent ejection fraction no further cardiac workup At the time of discharge patient is afebrile stable vital signs found eating breakfast and on room air. Daughter at the bedside. Discharged home on azithromycin and Tamiflu. She will continue all her home medications follow up with the primary Dr Dr. Meyer. Consults/Reason for consult Cardiology Operations or Procedures None Condition at Discharge: Fair Final Diagnosis/Problems List Acute chest pain: Noncardiac etiology Troponin negative, cardiology consult by Dr. Trevino appreciated, echocardiogram 65 percent ejection fraction, no further cardiac workup Left upper lobe pneumonia: Treated with Rocephin azithromycin albuterol Atrovent Laura test negative Type B flu positive: Tamiflu History of Myelodysplasia with leukopenia stable, under the treatment of Arthritis Hyponatremia sodium 125: NS 125 per hour, Nephrology consult appreciated Hypertension Discharge Disposition: Home Discharge Instruct/Medications Diet: Cardiac 2g Na,low cholest Activity: Light activity Follow Up/Referral: Continue all your previous home medications Use new medications as prescribed Follow up with the primary Dr Dr. Meyer Medications: Azithromycin Tamiflu Transmitted to [facility] Scheduled Alpha Tocopheryl Acid Succinat (Vitamin E), 100 UNIT PO HS, (Reported) Ascorbic Acid (Vitamin C), 500 MG PO HS, (Reported) Ascorbic Acid (Vitamin C Tablet), 1 TAB PO DAILY, (Reported) Biotin (Vitamin H) (Biotin), 1,000 MCG PO DAILY, (Reported) Calcium Citrate Tetrahydrate (Calcium Citrate), 1 TAB PO HS, (Reported) Cevimeline Hydrochloride Hemih (Evoxac), 30 MG PO BID, (Reported) Cholecalciferol (Vitamin D-3), 1,000 UNIT PO BID, (Reported) Cyclosporine (Ophth) (Restasis), 1 DROP EACHEYE BID, (Reported) Etanercept (Enbrel), 50 MG SUBCUT QWEEKLY, (Reported) Etodolac (Etodolac), 200 MG PO BID, (Reported) Folic Acid (Folic Acid), 1,000 MCG PO HS, (Reported) Leucovorin Calcium (Leucovorin Calcium), 5 MG PO QWEEKLY, (Reported) Multiple Vitamin (Multivitamins), 1 CAP PO DAILY, (Reported) Scheduled PRN Lactulose (Lactulose), 20 GM PO DAILY PRN Miscellaneous Medications Calcium Citrate (Calcium Citrate), 400 MG PO, (Reported) Lisinopril (Lisinopril), 20 MG PO, (Reported) Patients Own Medication (Patients Own Medication), (Reported) Discontinued Medications Ferrous Sulfate (Ferrous Sulfate), 325 MG PO DAILY, (Reported) 39 (Time taken for discharge summary 39 minutes) Discharge Statement: "Patient was advised to return to the ER or call 911 if any headaches, dizziness, shortness of breath, chest pain, abdominal pain, bleeding, fevers, or worsening of medical condition. Patient was counseled about treatment plan, medications, possible side effects, patientverbalized understanding. All questions were answered to the best of my ability. This discharge took greater then 30 minutes in planning, reviewing documentation, counseling the patient, and discussing with other team members." ASSESSMENT ASSESSMENT Hospital Course Uneventful Assessment Acute chest pain: Noncardiac etiology Troponin negative, cardiology consult by Dr. Trevino appreciated, echocardiogram 65 percent ejection fraction, no further cardiac workup Left upper lobe pneumonia: Treated with Rocephin azithromycin albuterol Atrovent Laura test negative Type B flu positive: Tamiflu History of Myelodysplasia with leukopenia stable, under the treatment of Arthritis Hyponatremia sodium 125: NS 125 per hour, Nephrology consult appreciated Hypertension Date of Service: Feb 25, 2025 Billing Provider: KIYA ADKINS MD Common Visit Codes: [id number] DISCH DAY >30min KIYA ADKINS MD Feb 25, 2025 09:32
[2025-02-25] MEDS ORDERED: AZIT500T66 PO (09:58)
[2025-02-25] MEDS ORDERED: OSEL75CA5 PO (09:58)
--- NOTE | 2025-02-25 23:41 | DVHPN2 ---
Progress Note - Dictate Date Seen: Feb 25, 2025 Medical Necessity Reason Pt with a Central, PICC or Fol: No Subjective Patient was seen and evaluated in follow up. Echo shows EF of 65%. Patient denies any cardiac symptoms. Patient is cardiac stable for discharge. Telemetry reviewed. vital signs Vital Sign Date Time Temp Pulse Resp B/P (MAP) Pulse Ox O2 Delivery O2 Flow Rate FiO2 02/25/25 09:46 156/85 02/25/25 08:00 83 02/25/25 08:00 Room Air* 0 21 02/25/25 05:00 98.8 18 98 98.8 Total Intake and Output 02/24/25 02/24/25 02/25/25 15:00 23:00 07:00 Intake Total 1600 ml 1080 ml 380 ml Balance 1600 ml 1080 ml 380 ml objective GENERAL: Alert and oriented x 3. No acute distress. EYES: PERRL, EOMI. Anicteric. HENT: Moist mucous membranes. LUNGS: Decreased breath sounds. CARDIOVASCULAR: Regular rate and rhythm. ABDOMEN: Soft, nontender and nondistended. EXTREMITIES: No edema. NEUROLOGIC: No focal neurological deficits. SKIN: Warm, dry. laboratory and microbiology Laboratory Tests 02/25/25 05:24 Test 02/25/25 05:24 Range/Units Serum Glucose 102 74-106 mg/dL Problem List Chest pain, likely pleuritic. Rule out structural heart disease. Hypertension. Pneumonia. Emphysema. Myelodysplastic syndrome with associated leukopenia. Sjgren's syndrome. Rheumatoid arthritis. Possible early-onset dementia. Assessment/Plan Continued all current supportive medical care. IV antibiotics as ordered. Lisinopril. Tamiflu. Additional plan as per the hospital course. Dietary Evaluation Review Recommendations by RD: Protein Supplementation Comments: 1) Add 2g Na restriction to diet 2) Initiate Ensure High Protein qd; Encourage optimal PO intake 3) Follow-up with cardiology, rheumatology, endocrinology, and neurology 4) Continue to monitor I&O, labs, and skin integrity Expected Outcomes/Goals: 1) appetite and labs to improve 2) f/u in 3-5 days Plan discussed with: Patient HELENA WOODALL MD Feb 25, 2025 23:41
== END 2025-02-25 12:01 | disposition home or self-care (01) | DRG 194 ==
LOC: ER 12:39 → OVERFLOW 18:50 → CENTRAL 22:01 → TELE-CENTR 02-22 15:54
PROVIDERS: ADMIT Family Medicine; ATTEND Family Medicine
DX: J12.9 Viral pneumonia, unspecified (principal); E87.1 Hypo-osmolality and hyponatremia; J10.08 Influenza due to other identified influenza virus with other specified pneumonia; D70.9 Neutropenia, unspecified; D46.9 Myelodysplastic syndrome, unspecified; J43.9 Emphysema, unspecified; M35.00 Sjogren syndrome, unspecified; Z20.822 Contact with and (suspected) exposure to COVID-19; M06.8A Other specified rheumatoid arthritis, other specified site; M19.09 Primary osteoarthritis, other specified site; Z90.49 Acquired absence of other specified parts of digestive tract; Z91.013 Allergy to seafood; Z88.5 Allergy status to narcotic agent; Z88.6 Allergy status to analgesic agent; Z90.710 Acquired absence of both cervix and uterus; M06.9 Rheumatoid arthritis, unspecified; F03.90 Unspecified dementia, unspecified severity, without behavioral disturbance, psychotic disturbance, mood disturbance, and anxiety; I11.9 Hypertensive heart disease without heart failure
CPT/HCPCS: 36415; 71045; 71250; 80048; 80053; 80061; 81001; 82378; 83036; 83735; 83930; 84295; 84443; 84484; 84550; 85007; 85025; 85027; 85610; 87040; 87426; 87804; 93005; 93306; 96361; 96374; 96375; 99291; G0378; G9035; J2405